=== PATIENT | male | born 1940 | race Caucasian/White ===

== ENCOUNTER 2020-11-20 16:00 | Observation (INO) | payer MEDICARE, SELFPAY ==
[2020-11-20] VITALS (49 sets, daily range): BP systolic 114–179; BP diastolic 59–102; PULSE 80–124; RESP 13–24; TEMP 36.1; O2SAT 91–96
--- NOTE | ~2020-11-20 | CT_ITS ---
EXAMINATION: CT brain wo con DATE: 11/20/2020 18:03 INDICATION: Syncope and dizziness TECHNIQUE: Computed tomography (CT) of the head was performed without intravenous contrast. Sagittal and coronal reconstructions were performed. The mA was adjusted according to patient size. Iterative reconstruction technique was employed. The dose-length product was 681.00 mGy-cm. COMPARISON: head CT dated 11/09/2015 FINDINGS: No acute intracranial hemorrhage, acute infarction or abnormal extra axial fluid collection. There is moderate scattered white matter hypoattenuation consistent with chronic small vessel ischemic diseas e. Symmetric prominence of the sulci consistent with mild to moderate age-appropriate diffuse cerebra l volume loss. Ventricles are normal and symmetric. No mass/mass effect. Changes of bilateral intraoc ular lens replacement. The orbits and mastoid air cells are normal. Mucosal thickening the bilateral ethmoid sinuses. Thickened sclerotic ayoub to the bilateral maxillary sinuses consistent with chronic sinusitis with defects along the medial ayoub of both maxillary sinuses consistent with prior antral window procedures. Intracranial calcified cerebral atherosclerosis is noted. IMPRESSION: 1. No acute intracranial process. 2. Age-related changes including mild to moderate diffuse volume loss and moderate scattered white ma tter hypoattenuation consistent with chronic small vessel ischemic disease. Reviewed, dictated and finalized at location A. IMPRESSION: 1. No acute intracranial process. 2. Age-related changes including mild to moderate diffuse volume loss and moder ate scattered white matter hypoattenuation consistent with chronic small vessel ischemic disease.
--- NOTE | ~2020-11-20 | US_ITS ---
EXAMINATION: US carotid duplex BI DATE: 11/21/2020 09:39 INDICATION: Syncope TECHNIQUE: Grayscale, color Doppler, and pulsed Doppler images of the cervical carotid arteries were obtained. The degree of vessel stenosis is placed in one of the following categories: normal, <50%, 5 0-69%, >=70% but less than near-occlusion, near-occlusion, or total occlusion. Note that percent sten osis relative to normal distal artery lumen diameter is indirectly measured from velocity measurement s as described by Ariel, et al. Radiology 2003; 229:340-346. COMPARISON: None. FINDINGS: RIGHT: The right common carotid artery (CCA) peak systolic velocity (PSV) is 87 cm/s. The right internal car otid artery (ICA) PSV is 105 cm/s. The right ICA end-diastolic velocity (EDV) is 34 cm/s. The right I CA/CCA PSV ratio is 1.2. Grayscale and color Doppler images yield an estimate of <50% diameter reduct ion from plaque in the ICA. The external carotid artery (ECA) PSV is 120 cm/s. There is antegrade nilson w in the right vertebral artery. LEFT: The left CCA PSV is 102 cm/s. The left ICA PSV is 118 cm/s. The left ICA EDV is 31 cm/s. The left ICA /CCA PSV ratio is 1.2. Grayscale and color Doppler images yield an estimate of <50% diameter reductio n from plaque in the ICA. The ECA PSV is 151 cm/s. There is antegrade flow in the left vertebral praful ry. IMPRESSION: 1. <50% stenosis in the right internal carotid artery. 2. <50% stenosis in the left internal carotid artery. Reviewed, dictated and finalized at location A.
--- NOTE | ~2020-11-20 | CT_ITS ---
EXAMINATION: CTA chest PE abdomen pel DATE: 11/20/2020 18:08 INDICATION: Syncope. Positive d-dimer. Anemia. TECHNIQUE: Computed tomography (CT) pulmonary angiogram of the chest was performed with 100 mL Omnipa que-350 intravenous contrast. Additional 3D reconstructions utilizing coronal maximum intensity proje ction (MIP) were performed. CT of the abdomen and pelvis was performed with intravenous contrast util izing the same contrast bolus following a short delay. Automated exposure control and iterative recon struction technique were employed. The dose-length product was 809.03 mGy-cm. COMPARISON: Chest CT dated 04/23/2019 FINDINGS: Chest: Excellent contrast opacification of the pulmonary arteries. There is mild streak artifact from dense contrast in the superior vena cava and right atrium. Mild scattered respiratory motion artifact which does not significantly limit evaluation. No pulmonary embolism. Severe emphysema. Chronic mild eleva tion of the left hemidiaphragm. Discoid atelectasis in the bilateral lower lobes, right upper lobe an d lingula. A few bilateral small calcite pulmonary nodules along with calcified bilateral hilar and m ediastinal lymph nodes consistent with old granulomatous disease. Heart size is normal. Atherosclerot ic coronary artery calcifications. Aortic valve calcifications. No pericardial effusion. Thoracic aor ta is normal in caliber with no dissection. No pathologically enlarged thoracic lymphadenopathy. Thor acic kyphosis with chronic T7 compression fracture with 40% anterior vertebral body height loss. Abdomen/pelvis: Chronic 2.2 cm cyst in the right hepatic lobe. A few hepatic and splenic calcific lesions consistent with old granulomatous disease. Gallbladder, pancreas and bilateral adrenal glands are normal. Bilate ral low-attenuation renal cysts the largest measuring 3.0 cm at the lower pole of the left kidney. 1. 6 cm hyperdense exophytic cyst at the interpolar region of the right kidney which is without signific ant interval change since 07/08/2018 when on pre and postcontrast imaging there was no discernible en hancement. There is marked colonic diverticulosis with a sigmoid and descending colon predominance. T here is no adjacent inflammatory change to suggest diverticulitis. No bowel obstruction. The appendix is not visualized. No pericecal inflammatory change to suggest acute appendicitis. Bladder is normal . Prostatomegaly. Postoperative change of bilateral inguinal hernia repairs. No free intraperitoneal gas or fluid. There is calcified atherosclerosis of the aorta and many of the other arteries. No path ologically enlarged abdominal or pelvic lymphadenopathy. Mild to moderate lumbar spondylosis. Moderat e bilateral hip osteoarthritis. IMPRESSION: 1. No pulmonary embolism or other acute cardiopulmonary disease. 2. Severe emphysema. 3. No acute intra-abdominal/pelvic process. 4. Marked diverticulosis. 5. Prostatomegaly. Reviewed, dictated and finalized at location A.
--- NOTE | 2020-11-20 16:10 | ECG_ITS ---
Measurements Intervals [place] Rate: 84 P: 22 AL: 208 QRS: -50 QRSD: 110 T: 38 QT: 378 QTc: 449 Interpretive Statements SINUS RHYTHM WITH FIRST DEGREE AV BLOCK LEFT AXIS DEVIATION INTRAVENTRICULAR CONDUCTION DELAY CANNOT RULE OUT SEPTAL INFARCT, AGE INDETERMINATE ABNORMAL ECG Electronically Signed On 11-20-2020 17:16:30 CDT by Pancho Louis D.O.
--- NOTE | 2020-11-20 16:36 | ED.GENADULT ---
HPI - General Adult General Chief complaint: Dizziness Stated complaint: near syncope Source: patient and family Mode of arrival: EMS Limitations: no limitations History of Present Illness HPI narrative: Patient brought in by EMS after he had a episode of dizziness with near syncope that occurred just [employer]. He was working outside with his son this afternoon and upon entering his home he felt dizzy. While seated in a chair, he informed his son that he needed to use the restroom. His son assisted him down the hallway. His son indicates that his legs gave out and patient began to fall to the ground. His son caught him prior to the time that he hit the ground. No loss of consciousness. EMS was contacted and brought patient to the hospital for further evaluation. Patient states at the present time he feels great and has no complaints. At the time of the event he had no chest pain. 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 He has a remote hx of CVA and has a cardiac stent placed in 2000. He is currently on medication for hypertension and hyperlipidemia. He does not smoke. No personal or family hx of VTE. No recent surgeries. Of note, he was diagnosed with vertigo in the past, for which he was given meclizine. He states symptoms today did not feel consistent with those experienced with vertigo. He states at the time of the event it did not feel like the room was spinning. Related Data Home Medications Medication Instructions Recorded Confirmed atorvastatin 20 mg tablet 20 mg PO DAILY 09/17/20 09/17/20 cholecalciferol (vitamin D3) 25 25 mcg PO DAILY 09/17/20 09/17/20 mcg (1,000 unit) capsule omega 2-dat-hku-fish oil 1,000 mg 1 cap PO DAILY 09/17/20 09/17/20 (120 mg-180 mg) capsule vitamin E 200 unit capsule 200 unit PO DAILY 09/17/20 09/17/20 Allergies Allergy/AdvReac Type Severity Reaction Status Date / Time No Known Allergies Allergy Unknown Verified 11/20/20 16:07 Review of Systems Review of Systems: Narrative: CONSTITUTIONAL: Denies fever, chills, or sweats. EYES: Denies visual changes, redness, or discharge. ENT: Denies rhinorrhea, congestion, sore throat, or otalgia. CARDIOVASCULAR: Denies chest pain, palpitations, or edema. RESPIRATORY: Reports chronic shortness of breath, not worse as of late. Denies cough GASTROINTESTINAL: Denies abdominal pain, nausea, vomiting, or diarrhea. GENITOURINARY: Denies dysuria or hematuria. SKIN: Denies rash or itching. MUSCULOSKELETAL: Denies back pain, joint pain, or myalgia. NEUROLOGIC: Reports dizziness earlier, now resolved. Denies headache, numbness, or weakness. PSYCHIATRIC: Denies anxiety or depression. [facility] Past Medical History Medical History (Updated 11/20/20 @ 21:07 by ZACHERY Hopkins, ) Hyperlipidemia Hypertension Surgical History Surgical History History of hernia repair Family History Family History Mother Family history of heart disease in male family member before age 55 Social History Social History Smoking status: Never smoker Second hand tobacco smoke exposure: No Smoking end date: 07/23/84 Alcohol intake: never Substance use: never Living arrangements: with family Gender identity (if verbalized by the patient): Male Sexual Orientation (if Verbalized by the Patient): Straight or Heterosexual Spiritual care concerns: No Exam Narrative: Exam Narrative: GENERAL: Well-appearing, well-nourished, and in no acute distress. HEAD: Normocephalic, atraumatic. EYES: PERRLA and EOMI. ENT: Nares clear, no rhinorrhea or epistaxis. Mucous membranes moist. Oropharynx without tonsillar hypertrophy exudate or other lesions. Bilateral TMs pearly matos nonbulging NECK: Supple. No adenopathy or masses. No carot
[2020-11-20] MEDS: SODIUM CHLORIDE 0.9% IV 1,000 ML 150 ML IV CONT (16:43)
[2020-11-20 17:12] LABS: Basophils Absolute Auto 0.1 K/mm3 (0.0-0.1); Basophils Percent Auto 1.2 % (0.2-1.2); Eosinophils Absolute Auto 0.2 K/mm3 (0-0.3); Hematocrit 27.8 % (42.0-52.0); Hemoglobin 7.6 g/dL (14.0-18.0); Immature Granulocyte Absolute 0.05 K/mm3 (0.00-0.031); Immature Granulocyte Percent A 0.5 % (0-0.5); Lymphocytes Absolute Auto 1.03 K/mm3 (0.9-3.2); Mean Corpuscular HGB Conc 27.3 g/dl (32-36); Mean Corpuscular Hemoglobin 18.9 pg (26-34); Mean Platelet Volume 10.1 fl (7.4-10.4); Monocytes Absolute Auto 0.9 K/mm3 (0.1-0.6); Monocytes Percent Auto 8.2 % (2.6-8.5); Neutrophils Absolute Auto 8.1 K/mm3 (1.3-6.7); Neutrophils Percent Auto 78.1 % (45.5-73.1); Platelet Count Result 274 k/mm3 (150-375); Red Blood Count 4.03 M/mm3 (4.6-6.20); Red Cell Distribution Width 16.1 % (11.5-14.5); White Blood Count 10.3 K/mm3 (4.5-10.0)
[2020-11-20 17:18] LABS: Creatine Kinase 67 U/L (55-170)
[2020-11-20 17:22] LABS: Prothrombin Time 13.3 Seconds (11.1-14.7)
[2020-11-20 17:23] LABS: Partial Thromboplastin Time 25.2 SECONDS (22.3-36.8)
[2020-11-20 17:25] LABS: Alanine Aminotransferase 12 U/L (4-50); Albumin Level 3.9 g/dL (3.5-5.1); Alkaline Phosphatase 75 U/L (38-126); Anion Gap 4 mmol/L (8-16); Aspartate Amino Transferase 23 U/L (17-59); Bilirubin,Total 0.3 mg/dL (0.2-1.3); Blood Urea Nitrogen 18 mg/dL (9-20); Calcium 9.2 mg/dL (8.4-10.2); Carbon Dioxide 25 mmol/L (22-30); Chloride 106 mmol/L (98-107); D Dimer 0.69 ug/mL (<0.48); Estimated CRCL calculation 53 ml/min; Estimated Glomerular Filt Rate > 60; Glucose 86 mg/dL (75-110); Sodium 135 mmol/L (137-145)
[2020-11-20 17:29] LABS: Crenated RBC 1+ (NORMAL); Hypochromasia 2+ (NORMAL); Ovalocytes 1+ (NORMAL); Platelet Estimate Adequate (Adequate)
[2020-11-20 17:35] LABS: NT Pro B Type Natriuretic Pept 82 pg/mL (5-100); Troponin I 0.041 ng/mL (0.000-0.034)
[2020-11-20 17:36] LABS: Potassium 4.1 mmol/L (3.4-5.0)
[2020-11-20 17:55] LABS: Add Urine Microscopic? YES; Appearance Urine Cloudy (Clear); Bilirubin Urine Negative (Negative); Blood Urine Negative (Negative); Color Urine Yellow (Yellow); Glucose Urine UA Negative (Negative); Ketones Urine Negative (Negative); Leukocyte Esterase Ur Negative LEU/UL (Negative); Nitrate Urine Negative (Negative); Protein Urine 1+ mg/dL (Negative); RBC Urine 0-2 /hpf (0-2); Specific Grav Ur 1.016 (1.001-1.035); Squamous Epithelial Cell Urine Rare /hpf (Few); Urobilinogen Urine Negative mg/dL (<2.0)
--- NOTE | 2020-11-20 18:20 | PC.NURSE ---
Pt in CT.
[2020-11-20 20:42] LABS: Troponin I 0.045 ng/mL (0.000-0.034)
[2020-11-20 21:21] LABS: Iron 17 ug/dL (49-181)
[2020-11-20 21:31] LABS: Percent Iron Saturation 4 % (20-50)
[2020-11-20] MEDS: ENOXAPARIN 80 MG/0.8 ML SYRINGE SUB-Q (21:53)
[2020-11-20] MEDS: ASPIRIN 81 MG CHEWABLE TABLET 324 MG PO (21:53)
[2020-11-20 21:58] LABS: Ferritin 4.24 ng/mL (11.1-264)
[2020-11-20 22:36] LABS: Folic Acid 14.3 ng/mL (2.76->20)
[2020-11-21] VITALS (14 sets, daily range): BP systolic 115–154; BP diastolic 58–76; PULSE 69–94; RESP 16–21; TEMP 36.3–37.1; O2SAT 92–97; BMI 25.7
--- NOTE | 2020-11-21 00:20 | PC.NURSE ---
This patient, Pranay Casanova, was admitted to [facility] Surg Room 323-01. Patient/family oriented to hospital policies and general routines including ID bracelet, bed and alarms, visiting hours, pain management, procedures, bathroom and other care routines, personal items, smoking policy, room service/diet, and visiting hours. Information on how to activate the Rapid Response Team has been discussed. Patient/Family are encouraged to report perceived risks to care and to ask questions if they do not understand what they are told or what they should do.
[2020-11-21] MEDS: IRON SUCROSE COMPLEX 500 MG in SODIUM CHLORIDE 0.9% IV 250 ML 78.57 MG IVPB (01:00)
[2020-11-21 05:52] LABS: Hematocrit 26.5 % (42.0-52.0); Hemoglobin 7.6 g/dL (14.0-18.0); Mean Corpuscular HGB Conc 28.7 g/dl (32-36); Mean Corpuscular Hemoglobin 19.3 pg (26-34); Mean Corpuscular Volume 67.3 fl (80-100); Mean Platelet Volume 10.2 fl (7.4-10.4); Platelet Count Result 276 k/mm3 (150-375); Red Blood Count 3.94 M/mm3 (4.6-6.20); White Blood Count 7.2 K/mm3 (4.5-10.0)
[2020-11-21 06:25] LABS: Troponin I 0.053 ng/mL (0.000-0.034)
--- NOTE | 2020-11-21 06:45 | PM.IMHP ---
H&P: HPI History of Present Illness Date/Time: 11/21/20 02:30 Chief Complaint: Lightheaded, may have passed out Narrative: 80-year-old male with past medical history of coronary artery disease with distant history of cardiac stent, essential hypertension, grade 2 diastolic dysfunction, and prior hospitalizations for near syncopal events and rectal bleeding in the distant past who presented to the ER via EMS due to near syncopal episode. The patient reported that he had been outside watching his son hang some wiring. When he walked inside he noticed that he felt lightheaded and off balance. He was sitting in a chair in the living room it was decided he needed to get up and go to the bathroom to urinate. His son helped him to business center manager he ambulated down the jin at which time out and he began to fall to the ground. His son eased him to the ground. The patient is unsure if he truly lost consciousness but according to the ER records the son did not think the patient completely lost consciousness. The patient still felt lightheaded for another 10 or 15 minutes but by the time he arrived to the ER his symptoms had completely resolved. He denied having any chest pain, palpitations, or cough. He does have chronic shortness of breath due to asbestosis but is not been worse recently. He does have a history of vertigo but denies a sensation of the room spinning. The symptoms were different than his usual vertigo. He denies any headache or visual changes. He has not had any cough, congestion, fevers or chills. He denies any diarrhea, hematochezia, melena or dysuria. He has not noticed any hematuria. Review of Systems Review of Systems: Narrative: 12 systems were reviewed with pertinent positives and negatives per HPI. Except as documented in the HPI, all other systems were reviewed and are negative. [facility] Past Medical History Medical History (Updated 11/21/20 @ 06:56 by Sandy Grider DO) Asbestosis Atherosclerotic heart disease of [place] coronary artery without angina pectoris Diastolic heart failure Echocardiogram April 2016: Normal ejection fraction of 65%, grade 2 diastolic dysfunction Hyperlipidemia Hypertension Kidney stones Surgical History Surgical History (Updated 11/21/20 @ 06:56 by Sandy Grider DO) History of heart artery stent (~2010) History of hernia repair Right inguinal hernia repair x2 with most recent repair July 2015 History of partial thyroidectomy (~01/2011) Family History Family History Mother Family history of heart disease in male family member before age 55 Social History Social History Smoking packs per day: 1 Smoking cigarettes per day: 20.0 Years smoked: 20 Smoking pack-years: 20.00 Smoking status: Former smoker Tobacco type: cigarettes Second hand tobacco smoke exposure: No Smoking end date: 07/23/84 Alcohol intake: never Substance use: never Living arrangements: with family Gender identity (if verbalized by the patient): Male Sexual Orientation (if Verbalized by the Patient): Straight or Heterosexual Spiritual care concerns: No Meds Home Medications and Allergies Home Medications Medication Instructions Recorded Confirmed Type atorvastatin 20 mg tablet 20 mg PO DAILY 09/17/20 11/21/20 History cholecalciferol (vitamin D3) 25 25 mcg PO DAILY 09/17/20 11/21/20 History mcg (1,000 unit) capsule omega 9-ehv-nue-fish oil 1,000 mg 1 cap PO DAILY 09/17/20 11/21/20 History (120 mg-180 mg) capsule vitamin E 200 unit capsule 200 unit PO DAILY 09/17/20 11/21/20 History amlodipine 5 mg PO DAILY 11/21/20 11/21/20 History aspirin 81 mg PO DAILY 11/21/20 11/21/20 History lisinopril 10 mg PO DAILY 11/21/20 11/21/20 History naproxen sodium [Aleve] 220 mg PO Q12H PRN 11/21/20 11/21/20 History Allergies Allergy/AdvReac Type Severity [place]
[2020-11-21] MEDS: ATORVASTATIN 20 MG TABLET PO (08:42)
[2020-11-21] MEDS: OMEGA 3 POLYUNSAT FATTY ACIDS 1 GM CAP PO (08:42)
[2020-11-21] MEDS: CHOLECALCIFEROL 1,000 UNITS TABLET 1000 UNITS PO (08:42)
[2020-11-21] MEDS: amLODIPine BESYLATE 5 MG TABLET PO (08:42)
[2020-11-21] MEDS: lisinopriL 10 MG TABLET PO (08:42)
[2020-11-21] MEDS: FERROUS SULFATE 324 MG TABLET PO ×2 (08:42→17:13)
[2020-11-21] MEDS: ASPIRIN 81 MG ENTERIC TABLET PO (08:42)
[2020-11-21] MEDS: VITAMIN E 100 UNIT CAPSULE 200 UNIT PO (08:43)
[2020-11-21 10:37] LABS: Troponin I 0.048 ng/mL (0.000-0.034)
--- NOTE | 2020-11-21 10:45 | PM.IMPN ---
Progress Note: A&P Assessment and Plan (1) Near syncope: Code(s): R55 - Syncope and collapse Status: Acute Assessment and Plan: The patient has iron deficiency anemia. His stool occult blood in the ER was negative but he does have a history of admissions in 2018 due to bright red blood per rectum. The most recent comparison level UA have available is from 2018 at which time his hemoglobin was 12. The patient claims to be eating iron rich foods. No evidence of active GI blood loss. Will give the patient a dose of Venofer. Sulfate has been ordered with b.i.d. dosing. 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 Will repeat CBC in a.m.. Patient is not having any symptoms of gastritis or GERD. He does take naproxen on a somewhat frequent basis and could have some microscopic GI losses due to this. Will stop the patient's naproxen. Given his near syncopal episode he will be evaluated on telemetry. Will check orthostatic vital signs in a.m. The patient did have mildly elevated troponins but his troponin profile is flat. He has no evidence of acute myocardial ischemia. 11/21/20 10:45 patient is 80-year-old male history of hypertension coronary artery disease with stent and distant past, diastolic dysfunction, patient was brought to the emergency department after patient had a syncopal episode patient states there was no prodrome symptoms chest pain shortness of breath palpitation, patient does have a history of iron deficiency anemia and his hemoglobin is lower than 2018, will do stool Hemoccult, will do iron profile and check vitamin B12 and folate and further recommendation to follow, patient states is feeling better now denies any chest pain shortness of breath or disease, so far the workup is benign, further evaluate I have ordered cardiac echo and carotid ultrasound as well as physical therapy to evaluate the patient return home safe. (2) Elevated troponin: Code(s): R77.8 - Other specified abnormalities of plasma proteins Status: Acute Assessment and Plan: Most likely demand ischemia unlikely acute coronary syndrome (3) Iron deficiency anemia: Qualifiers: Iron deficiency anemia type: unspecified iron deficiency Qualified Code(s): D50.9 - Iron deficiency anemia, unspecified Code(s): D50.9 - Iron deficiency anemia, unspecified Status: Acute Assessment and Plan: Will do iron profile and check for vitamin B12 and folic and check for stool Hemoccult Additional Plan Patient has been admitted as observation status. Subjective Date/time seen: The patient has iron deficiency anemia. His stool occult blood in the ER was negative but he does have a history of admissions in 2018 due to bright red blood per rectum. The most recent comparison level UA have available is from 2018 at which time his hemoglobin was 12. The patient claims to be eating iron rich foods. No evidence of active GI blood loss. Will give the patient a dose of Venofer. Sulfate has been ordered with b.i.d. dosing. 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 Will repeat CBC in a.m.. Patient is not having any symptoms of gastritis or GERD. He does take naproxen on a somewhat frequent basis and could have some microscopic GI losses due to this. Will stop the patient's naproxen. Given his near syncopal episode he will be evaluated on telemetry. Will check orthostatic vital signs in a.m. The patient did have mildly elevated troponins but his troponin profile is flat. He has no evidence of acute myocardial ischemia. 11/21/20 10:45 patient is 80-year-old male history of hypertension coronary artery disease with stent and distant past, diastolic dysfunction, patient was brought to the emergency department after patient had a syncopal episode patient state
[2020-11-21] MEDS: CYANOCOBALAMIN INJ 1,000 MCG/ML VIAL 1000 MCG IM (13:40)
[2020-11-22] VITALS (8 sets, daily range): BP systolic 115–132; BP diastolic 69–75; PULSE 65–80; RESP 16–18; TEMP 36.2–36.8; O2SAT 90–96
--- NOTE | 2020-11-22 | ECHO_ITS ---
Patient Info Name: Pranay Casanova Age: 80 years : 1940 Gender: Male Ht: 70 in Wt: 179 lbs BSA: 2.01 m2 HR: 78 bpm BP: 115 / 75 mmHg Heart Rhythm: Sinus Rhythm Technical Quality: Good Exam Date: 11/22/2020 9:34 AM Exam Location: [facility] Pulmonary Exam Room: [facility] Patient Status: Inpatient Admit Date: 11/20/2020 Staff Ordering Physician: Giulia Horne MD Traffic Control Specialist: Kanchan Sargent RDCS Attending Provider: Sandy Grider DO Exam Type: CA echo doppler color flow Study Info Indications - syncope Complete two-dimensional, color flow and Doppler transthoracic echocardiogram is performed. Summary 1. Complete two-dimensional, color flow and Doppler transthoracic echocardiogram is performed. 2. Left ventricular chamber dimension is normal. 3. Left ventricular systolic function is normal, estimated at 65-70%. 4. The left ventricular diastolic function is grade I diastolic dysfunction. 5. Left atrial chamber dimension is moderately enlarged. 6. There is mild to moderate mitral valve regurgitation. 7. There is trace aortic valve regurgitation. Left Ventricle Left ventricular chamber dimension is normal. Left ventricular systolic function is normal, estimated at 65-70%. The left ventricular diastolic function is grade I diastolic dysfunction. Right Ventricle Right ventricular chamber dimension is normal. Left Atria Left atrial chamber dimension is moderately enlarged. Right Atria Right atrial chamber dimension is normal. Aortic Valve The aortic valve is trileaflet. There is mild aortic valve sclerosis. There is trace aortic valve regurgitation. Pulmonic Valve The pulmonic valve is normal. Mitral Valve The mitral valve has normal leaflets. There is mild to moderate mitral valve regurgitation. Tricuspid Valve The tricuspid valve leaflets are normal. Pericardium/Pleural The pericardium appears normal. Aorta The aortic root size at the sinus of Valsalva is normal. Left Ventricular Outflow Tract Name Value Normal LVOT 2D LVOT Diameter 2.1 cm LVOT Doppler LVOT Peak Gradient 4 mmHg LVOT Mean Gradient 2 mmHg LVOT VTI 18 cm LVOT VTI/AV VTI Ratio 0.8 LVOT Stroke Volume 63 ml LVOT CO 14.1 l/min LVOT CI 7.0 l/min/m2 Pulmonic Valve Name Value Normal PV Doppler PV Peak Gradient 3 mmHg Mitral Valve Name Value Normal MV Doppler MV Decel Nance
[2020-11-22 06:33] LABS: Hematocrit 27.2 % (42.0-52.0); Hemoglobin 7.6 g/dL (14.0-18.0); Mean Corpuscular HGB Conc 27.9 g/dl (32-36); Mean Corpuscular Volume 68.2 fl (80-100); Mean Platelet Volume 10.3 fl (7.4-10.4); Platelet Count Result 273 k/mm3 (150-375); Red Blood Count 3.99 M/mm3 (4.6-6.20); Red Cell Distribution Width 16.3 % (11.5-14.5)
[2020-11-22 06:45] LABS: Anion Gap 0 mmol/L (8-16); Blood Urea Nitrogen 14 mg/dL (9-20); Calcium 8.9 mg/dL (8.4-10.2); Carbon Dioxide 28 mmol/L (22-30); Chloride 110 mmol/L (98-107); Estimated CRCL calculation 58 ml/min; Estimated Glomerular Filt Rate > 60; Glucose 80 mg/dL (75-110); Potassium 3.7 mmol/L (3.4-5.0); Sodium 138 mmol/L (137-145)
--- NOTE | 2020-11-22 06:48 | PC.NURSE ---
Patient heart rate was in the 160's. No complaints of chest pain or fluttering. Heart rate was in the 160's for a minute and came back down into the 70's. Vital signs are stable, see MAR.
[2020-11-22] MEDS: FERROUS SULFATE 324 MG TABLET PO (08:18)
[2020-11-22] MEDS: ATORVASTATIN 20 MG TABLET PO (08:19)
[2020-11-22] MEDS: lisinopriL 10 MG TABLET PO (08:19)
[2020-11-22] MEDS: ASPIRIN 81 MG ENTERIC TABLET PO (08:19)
[2020-11-22] MEDS: amLODIPine BESYLATE 5 MG TABLET PO (08:19)
[2020-11-22] MEDS: CHOLECALCIFEROL 1,000 UNITS TABLET 1000 UNITS PO (08:19)
[2020-11-22] MEDS: VITAMIN E 100 UNIT CAPSULE 200 UNIT PO (08:19)
[2020-11-22] MEDS: OMEGA 3 POLYUNSAT FATTY ACIDS 1 GM CAP PO (08:19)
[2020-11-22 15:13] LABS: IFOB Positive Control Positive; Immunochemical Fecal Occult Bl Negative (N)
--- NOTE | 2020-11-22 15:31 | PM.DS ---
DS: Admitting Diagnosis Admitting Diagnosis Admitting Diagnosis: Chief Complaint: Lightheaded, may have passed out DS: Discharge Diagnosis Discharge Diagnosis (1) Near syncope: Code(s): R55 - Syncope and collapse Status: Acute Assessment and Plan: The patient has iron deficiency anemia. His stool occult blood in the ER was negative but he does have a history of admissions in 2018 due to bright red blood per rectum. The most recent comparison level UA have available is from 2018 at which time his hemoglobin was 12. The patient claims to be eating iron rich foods. No evidence of active GI blood loss. Will give the patient a dose of Venofer. Sulfate has been ordered with b.i.d. dosing. 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 Will repeat CBC in a.m.. Patient is not having any symptoms of gastritis or GERD. He does take naproxen on a somewhat frequent basis and could have some microscopic GI losses due to this. Will stop the patient's naproxen. Given his near syncopal episode he will be evaluated on telemetry. Will check orthostatic vital signs in a.m. The patient did have mildly elevated troponins but his troponin profile is flat. He has no evidence of acute myocardial ischemia. 11/21/20 10:45 patient is 80-year-old male history of hypertension coronary artery disease with stent and distant past, diastolic dysfunction, patient was brought to the emergency department after patient had a syncopal episode patient states there was no prodrome symptoms chest pain shortness of breath palpitation, patient does have a history of iron deficiency anemia and his hemoglobin is lower than 2018, will do stool Hemoccult, will do iron profile and check vitamin B12 and folate and further recommendation to follow, patient states is feeling better now denies any chest pain shortness of breath or disease, so far the workup is benign, further evaluate I have ordered cardiac echo and carotid ultrasound as well as physical therapy to evaluate the patient return home safe. (2) Elevated troponin: Code(s): R77.8 - Other specified abnormalities of plasma proteins Status: Acute Assessment and Plan: Most likely demand ischemia unlikely acute coronary syndrome (3) Iron deficiency anemia: Qualifiers: Iron deficiency anemia type: unspecified iron deficiency Qualified Code(s): D50.9 - Iron deficiency anemia, unspecified Code(s): D50.9 - Iron deficiency anemia, unspecified Status: Acute Assessment and Plan: Will do iron profile and check for vitamin B12 and folic and check for stool Hemoccult DS: Summary Hospital Course Reason for hospitalization: Chief Complaint: Lightheaded, may have passed out Narrative: 80-year-old male with past medical history of coronary artery disease with distant history of cardiac stent, essential hypertension, grade 2 diastolic dysfunction, and prior hospitalizations for near syncopal events and rectal bleeding in the distant past who presented to the ER via EMS due to near syncopal episode. The patient reported that he had been outside watching his son hang some wiring. When he walked inside he noticed that he felt lightheaded and off balance. He was sitting in a chair in the living room it was decided he needed to get up and go to the bathroom to urinate. His son helped him to insurance executive he ambulated down the jin at which time out and he began to fall to the ground. His son eased him to the ground. The patient is unsure if he truly lost consciousness but according to the ER records the son did not think the patient completely lost consciousness. The patient still felt lightheaded for another 10 or 15 minutes but by the time he arrived to the ER his symptoms had completely resolved. He denied having any chest pain, palpitations, or cough. 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
== END 2020-11-22 16:20 | disposition home or self-care (01) ==
LOC: ANHED 21:09 → ANH3MEDSUR 11-21 00:07
PROVIDERS: Admitting Provider Internal Medicine; Emergency Provider Nurse Practitioner; PCP Internal Medicine; Visit Provider Family Medicine
DX: R55 Syncope and collapse (principal); D50.9 Iron deficiency anemia, unspecified; R06.02 Shortness of breath; I10 Essential (primary) hypertension; I25.10 Atherosclerotic heart disease of native coronary artery without angina pectoris; Z95.5 Presence of coronary angioplasty implant and graft; R77.8 Other specified abnormalities of plasma proteins; Z87.891 Personal history of nicotine dependence
CPT/HCPCS: 36415; 70450; 71275; 74177; 80048; 80053; 81001; 82274; 82550; 82607; 82728; 82746; 83540; 83550; 83735; 83880; 84484; 85025; 85027; 85380; 85610; 85730; 93005; 93306; 93880; 96361; 96365; 96366; 96372; 97161; 97165; 99285; A9270; G0378; J1650; J1756; J3420; J7030; J7050; Q9967

== ENCOUNTER 2020-12-08 12:34 | Outpatient (CLI) | payer MEDICARE, SELFPAY ==
[2020-12-08 13:00] VITALS: PULSE 72; O2SAT 91
[2020-12-08 13:05] VITALS: PULSE 103; O2SAT 86
[2020-12-08 13:15] VITALS: PULSE 88; O2SAT 91
--- NOTE | 2020-12-08 13:23 | HOMEO2EVAL ---
Evaluation was performed at [facility] Home Oxygen Evaluation RC: Home Oxygen (O2) Evaluation Start: 12/08/20 13:16 Freq: ONCE Status: Active Protocol: RPE Activity Type Activity Date Activity User E-Sign Co-Sign Detail Recorded Client Recorded Date Recorded By Document 12/08/20 13:05 KMV [id number] 12/08/20 13:19 KMV Document 12/08/20 13:15 KMV [id number] 12/08/20 13:21 KMV 12/08/20 12/08/20 13:05 13:15 Home O2 Evaluation Test Phase Exercise Exercise Oxygen Delivery Room Air Nasal Cannula Oxygen Flow Rate (L/min) 2 Pulse Oximetry (90-100 %) 86 L 91 Pulse Rate (60-100 beats/min) 103 H 88 Home Oxygen Evaluation Comments Pt need home O2 2 liters with activity.
== END 2020-12-08 12:35 | disposition home or self-care (01) ==
PROVIDERS: PCP Internal Medicine; Visit Provider Internal Medicine
DX: J43.9 Emphysema, unspecified (principal)
CPT/HCPCS: 94618

== ENCOUNTER 2022-03-13 15:01 | Observation (INO) | payer MEDICARE, SELFPAY ==
[2022-03-13] VITALS (19 sets, daily range): BP systolic 108–143; BP diastolic 52–83; PULSE 59–98; RESP 16–21; TEMP 36.2–36.9; O2SAT 97–100; BMI 24.5
--- NOTE | 2022-03-13 15:07 | ECG_ITS ---
Measurements Intervals [place] Rate: 83 P: 28 AK: 190 QRS: -48 QRSD: 104 T: 32 QT: 371 QTc: 437 Interpretive Statements SINUS RHYTHM WITH OCCASIONAL SUPRAVENTRICULAR PREMATURE COMPLEXES LEFT ANTERIOR FASCICULAR BLOCK ANTEROSEPTAL MYOCARDIAL INFARCTION, OF INDETERMINATE AGE ABNORMAL ECG COMPARED TO ECG 11/20/2020 16:17:02 LEFT ANTERIOR FASCICULAR BLOCK NOW PRESENT Electronically Signed On 03-13-2022 16:39:15 CDT by Trenton Higgins M.D.
[2022-03-13 15:39] LABS: Basophils Absolute Auto 0.1 K/mm3 (0.0-0.1); Basophils Percent Auto 1.2 % (0.2-1.2); Eosinophils Absolute Auto 0.2 K/mm3 (0-0.3); Eosinophils Percent Auto 1.9 % (0-4.4); Hematocrit 26.5 % (42.0-52.0); Immature Granulocyte Absolute 0.03 K/mm3 (0.00-0.031); Immature Granulocyte Percent A 0.3 % (0-0.5); Immature Platelet Fraction Pct 3.8 % (0.9-11.2); Lymphocytes Percent Auto 12.1 % (18.3-44.2); Mean Corpuscular HGB Conc 25.7 g/dl (32-36); Mean Corpuscular Hemoglobin 16.2 pg (26-34); Mean Corpuscular Volume 62.9 fl (80-100); Monocytes Absolute Auto 0.9 K/mm3 (0.1-0.6); Monocytes Percent Auto 10.1 % (2.6-8.5); Neutrophils Absolute Auto 6.8 K/mm3 (1.3-6.7); Neutrophils Percent Auto 74.4 % (45.5-73.1); Platelet Count Result 334 k/mm3 (150-375); Red Blood Count 4.21 M/mm3 (4.6-6.20); Red Cell Distribution Width 19.7 % (11.5-14.5); White Blood Count 9.1 K/mm3 (4.5-10.0)
[2022-03-13 15:53] LABS: Alanine Aminotransferase 13 U/L (6-50); Alkaline Phosphatase 65 U/L (38-126); Anion Gap 12 mmol/L (8-16); Aspartate Amino Transferase 23 U/L (17-59); Bilirubin,Total 0.3 mg/dL (0.2-1.3); Blood Urea Nitrogen 18 mg/dL (9-20); Calcium 9.7 mg/dL (8.4-10.2); Carbon Dioxide 23 mmol/L (22-30); Chloride 99 mmol/L (98-107); Estimated CRCL calculation 44 ml/min; Estimated Glomerular Filt Rate 58; Glucose 130 mg/dL (65-110); Potassium 4.5 mmol/L (3.4-5.0); Sodium 134 mmol/L (137-145)
[2022-03-13 16:12] LABS: Hemoglobin 6.8 g/dL (14.0-18.0)
[2022-03-13 16:13] LABS: Hypochromasia 1+ (NORMAL); Platelet Estimate Adequate (Adequate)
[2022-03-13 16:14] LABS: Anisocytosis 1+ (NORMAL); Ovalocytes 1+ (NORMAL)
[2022-03-13 16:50] LABS: INR 1.1; Prothrombin Time 13.9 Seconds (11.1-14.7)
[2022-03-13 16:51] LABS: Partial Thromboplastin Time 25.3 SECONDS (22.3-36.8)
--- NOTE | 2022-03-13 16:52 | ED.DIZZY ---
HPI - Dizziness General Chief Complaint: Dizziness Stated Complaint: dizzy Time Seen by Provider: 03/13/22 16:23 Source: RN notes reviewed History of Present Illness HPI Narrative: Patient presents emergency department from home for dizziness. Patient states he began to notice the symptoms yesterday. He states that when he is getting up and walking if he walks more than 50 feet he became dizzy and lightheaded and short of breath. He states he has no dizziness when sitting down in bed he denies any fevers or chills denies any chest pain denies any abdominal pain nausea or vomiting. Related Data Home Medications Medication Instructions Recorded Confirmed cholecalciferol (vitamin D3) 25 25 mcg PO DAILY 09/17/20 10/03/21 mcg (1,000 unit) capsule omega 8-tfh-bzf-fish oil 1,000 mg 1 cap PO DAILY 09/17/20 10/03/21 (120 mg-180 mg) capsule (Fish Oil) vitamin E 200 unit capsule 200 unit PO DAILY 09/17/20 10/03/21 aspirin 81 mg tablet 81 mg PO DAILY 11/21/20 10/03/21 vitamin B complex (B 1 tablet PO DAILY 12/24/20 10/03/21 Complex-Vitamin B12 tablet) Allergies Allergy/AdvReac Type Severity Reaction Status Date / Time No Known Allergies Allergy Unknown Verified 03/13/22 16:37 Review of Systems Review of Systems: Gen.: Denies fevers or chills ENT: Denies congestion Respiratory: Reports shortness of breath with exertion CV: Denies chest pain or palpitations GI: Denies abdominal pain nausea, emesis or diarrhea Musculoskeletal: Denies back pain or muscle pain Neuro: Reports dizziness Skin: Denies rash Except as documented, all other systems reviewed and negative [facility] Past Medical History Medical History Asbestosis Atherosclerotic heart disease of [place] coronary artery without angina pectoris Diastolic heart failure Echocardiogram April 2016: Normal ejection fraction of 65%, grade 2 diastolic dysfunction Hyperlipidemia Hypertension Kidney stones Surgical History Surgical History History of heart artery stent (~2010) History of hernia repair Right inguinal hernia repair x2 with most recent repair July 2015 History of partial thyroidectomy (~01/2011) Family History Family History Mother Heart disease Father Heart disease Melanoma Social History Social History Social History: He lives in [place] with his of 63 years. They had 2 sons. 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 He is still independent in activities of daily living and ambulates without assistance. He still drives. He had a distant history of 20 pack per year smoking history but quit smoking in . Primary care physician: Dr. Iam Sabillon Code status: DNR/DNI per patient request Surrogate decision maker: Tonia () Smoking packs per day: 1 Smoking cigarettes per day: 20.0 Years smoked: 20 Smoking pack-years: 20.00 Smoking status: Former smoker Tobacco type: cigarettes Second hand tobacco smoke exposure: No Smoking end date: 07/23/84 Alcohol intake: never Substance use: never Gender identity (if verbalized by the patient): Male Sexual Orientation (if Verbalized by the Patient): Straight or Heterosexual Spiritual care concerns: No Exam Narrative: APPEARANCE: No acute distress, nontoxic, resting in bed EYES: EOMI HEENT: Normocephalic, atraumatic, OMM RESPIRATORY: No respiratory distress Clear to auscultation bilaterally with no rhonchi wheezing or rales. CARDIOVASCULAR: Regular rate and rhythm without murmurs rubs or gallops. ABDOMINAL: Soft, nontender, nondistended, no rebound or guarding Rectal: No hemorrhoids or fissures soft light brown stool that is Hemoccult positive MUSCULOSKELETAl: Moves all extremities. No clubbing, cyanosis or edema. NEURO: Awake and a
--- NOTE | 2022-03-13 16:59 | WPDGICN ---
Assessment and Plan Assessment and plan (1) GI bleed: Code(s): K92.2 - Gastrointestinal hemorrhage, unspecified Status: Acute Assessment and Plan: he has not seen gross blood in his stools. The the drop in his blood counts and low MCV however suggest chronic gastrointestinal blood loss. We will investigate that with EGD and colonoscopy. he denies recent abdominal pain. He denies use of NSAIDs except occasional ibuprofen. (2) Symptomatic anemia: Code(s): D64.9 - Anemia, unspecified Status: Acute Assessment and Plan: He has been increasingly short of breath recently. This reminds him of how he felt when he was hospitalized 1 year ago after which he received oral iron therapy and infusions. (3) Atherosclerotic heart disease of [place] coronary artery without angina pectoris: Code(s): I25.10 - Atherosclerotic heart disease of [place] coronary artery without angina pectoris Status: Acute Assessment and Plan: He has had a stent placed many years ago. He does take aspirin, 81 mg per day. (4) On home oxygen therapy: Code(s): Z99.81 - Dependence on supplemental oxygen Status: Acute Assessment and Plan: He is on 2 L of oxygen at home at night GI Consult Note Consult date/time: 03/13/22 16:59 HPI: Pranay Casanova is a 81 year old male Who comes emergency room today complaining of being short winded and tired walking even a few steps. He states that the arm he has otherwise felt pretty good. His appetite is fair he has no difficulty swallowing. He denies heartburn or abdominal pain. He has had some issues with constipation, primarily when taking iron supplements. He uses a suppository or laxative from time to time. He has not seen blood in his stools nor has he noticed black, tarry stools. His hemoglobin has been found to be low at 6.8 compared to 14 a year ago. He is not anticoagulated. He does take 1 aspirin tablet 81 mg per day. He has a history of coronary artery disease and a remote history of having had a stent placed. He also has had hernia repair partial thyroidectomy. The patient was hospitalized overnight in 2018 when he had bright red blood per rectum but his hemoglobin did not drop below 12 and he was released the next day. One year ago he was hospitalized with severe anemia. His hemoglobin is 7.6 an MCV low at 69. He was given iron infusion but I do not see evidence that he had any blood transfusions. He states he took iron for a while but it bothered his bowels. His hemoglobin had come up to over 14 last February. He had a colonoscopy many years ago but not in the last 10 years. Review of Systems Review of Systems: All systems reviewed & are unremarkable except as noted in HPI and below [facility] Past Medical History Medical History (Updated 03/13/22 @ 17:05 by Pranay Campos MD) Asbestosis Atherosclerotic heart disease of [place] coronary artery without angina pectoris Diastolic heart failure Echocardiogram April 2016: Normal ejection fraction of 65%, grade 2 diastolic dysfunction Hyperlipidemia Hypertension Kidney stones Surgical History Surgical History History of heart artery stent (~2010) History of hernia repair Right inguinal hernia repair x2 with most recent repair July 2015 History of partial thyroidectomy (~01/2011) Family History Family History Mother Heart disease Father Heart disease Melanoma Social History Social History Social History: He lives in [place] with his of 63 years. They had 2 sons. 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 He is still independent in activities of daily living and ambulates without assistance. He still drives. He had a distant history of 20 pack per year smoking history but quit smoking in . [place]
--- NOTE | 2022-03-13 18:00 | ADMGEN ---
This patient, Pranay Casanova, was admitted to Medical Room 250-01. Patient/family oriented to hospital policies and general routines including ID bracelet, bed and alarms, visiting hours, pain management, procedures, bathroom and other care routines, personal items, smoking policy, room service/diet, and visiting hours. Information on how to activate the Rapid Response Team has been discussed. Patient/Family are encouraged to report perceived risks to care and to ask questions if they do not understand what they are told or what they should do.
[2022-03-13] MEDS: SODIUM CHLORIDE 0.9% IV 250 ML 30 ML IV CONT (18:30)
--- NOTE | 2022-03-13 18:48 | PM.IMHP ---
H&P: HPI History of Present Illness Date/Time: 03/13/22 18:48 Chief Complaint: Dizziness Narrative: This is a 81-year-old male patient who came to the ER from home. The patient noticed the symptoms yesterday. The patient stated that he could not even walk 50 ft before he became lightheaded dizzy and also short of breath. The patient had no fever chills. No cough. No nausea vomiting no diarrhea. He did not notice any blood in his stool. Patient's H&H is 6.8 and 14.7. Typically he has a normal baseline. He is not on any anticoagulations but is on aspirin. Patient was found to be guaiac-positive in the emergency room. His sodium is 134. Patient was ordered IV fluids and he was type and crossmatch for 2 units of packed red blood cells. Patient is being admitted for observation status on the date of service of 03/13/2022. Review of Systems Review of Systems: See HPI All systems reviewed & are unremarkable except as noted in HPI and below Constitutional: Constitutional: Reports as per HPI and Reports no additional constitutional complaints Eyes: Eyes: Reports as per HPI and Reports no additional eye complaints ENT: Reports system reviewed and no additional complaints, except as documented and Reports Normal hearing present Cardiovascular: Cardiovascular: Reports no additional cardiovascular complaints Respiratory: Respiratory: Reports no additional respiratory complaints and Reports no additional respiratory complaints Gastrointestinal: Gastrointestinal: Reports as per HPI and Reports no additional gastrointestinal complaints Musculoskeletal: Musculoskeletal: Reports no additional musculoskeletal complaints Integumentary/Breasts: Skin/Breast: Reports system reviewed and no additional complaints, except as docu and Reports as per HPI Neurologic: Reports system reviewed and no additional complaints, except as documented, Reports as per HPI and Reports Normal hearing present Psychiatric: Psychiatric: Reports no additional psychiatric complaints and Reports as per HPI Endocrine: Endocrine: Reports no additional endocrine complaints Hematologic/Lymphatic: Hematologic/Lymphatic: Reports no additional hematologic/lymphatic complaints Allergic/Immunologic: Allergic/Immunologic: Reports no additional allergic/immunologic complaints [facility] Past Medical History Medical History (Updated 03/13/22 @ 18:54 by Steffi Campoverde NP) Asbestosis Atherosclerotic heart disease of [place] coronary artery without angina pectoris COPD (chronic obstructive pulmonary disease) Diastolic heart failure Echocardiogram April 2016: Normal ejection fraction of 65%, grade 2 diastolic dysfunction Hyperlipidemia Hypertension Kidney stones Surgical History Surgical History (Updated 03/13/22 @ 18:54 by Steffi Campoverde NP) H/O cataract extraction History of heart artery stent (~2010) History of hernia repair Right inguinal hernia repair x2 with most recent repair July 2015 History of partial thyroidectomy (~01/2011) History of tonsillectomy Family History Family History Mother Heart disease Father Heart disease Melanoma Social History Social History Social History: He lives in [place] with his of 63 years. They had 2 sons. He is retired from the [employer]. He is still independent in activities of daily living and ambulates without assistance. He still drives. He had a distant history of 20 pack per year smoking history but quit smoking in . Primary care physician: Dr. Iam Sabillon Code status: DNR/DNI per patient request Surrogate decision maker: Tonia () Smoking packs per day: 1 Smoking cigarettes per day: 20.0 Years smoked: 20 Smoking pack-years: 20.00 Smoking status: Former smoker Second hand tobacco smoke exposure: No Alcohol intake: never Substance use: never [place]
[2022-03-13] MEDS: polyethylene glycoL 3350 238 GM BOTTLE PO (20:31)
[2022-03-13] MEDS: FAMOTIDINE 20 MG/2 ML VIAL IV PUSH (22:25)
[2022-03-13] MEDS: BISACODYL 5 MG TABLET EC 20 MG PO (23:05)
[2022-03-14] VITALS (17 sets, daily range): BP systolic 90–151; BP diastolic 40–72; PULSE 66–92; RESP 14–20; TEMP 36.2–36.6; O2SAT 95–100
[2022-03-14 01:32] LABS: Hematocrit 32.2 % (42.0-52.0); Hemoglobin 8.8 g/dL (14.0-18.0)
[2022-03-14 06:07] LABS: Basophils Absolute Auto 0.1 K/mm3 (0.0-0.1); Basophils Percent Auto 1.3 % (0.2-1.2); Eosinophils Absolute Auto 0.3 K/mm3 (0-0.3); Eosinophils Percent Auto 2.7 % (0-4.4); Hematocrit 30.8 % (42.0-52.0); Hemoglobin 8.5 g/dL (14.0-18.0); Immature Granulocyte Absolute 0.04 K/mm3 (0.00-0.031); Immature Granulocyte Percent A 0.4 % (0-0.5); Immature Platelet Fraction Pct 3.4 % (0.9-11.2); Lymphocytes Absolute Auto 1.23 K/mm3 (0.9-3.2); Lymphocytes Percent Auto 12.2 % (18.3-44.2); Mean Corpuscular HGB Conc 27.6 g/dl (32-36); Mean Corpuscular Hemoglobin 18.3 pg (26-34); Mean Corpuscular Volume 66.2 fl (80-100); Mean Platelet Volume 9.9 fl (7.4-10.4); Monocytes Absolute Auto 1.3 K/mm3 (0.1-0.6); Neutrophils Absolute Auto 7.1 K/mm3 (1.3-6.7); Neutrophils Percent Auto 70.4 % (45.5-73.1); Platelet Count Result 277 k/mm3 (150-375); Red Blood Count 4.65 M/mm3 (4.6-6.20); Red Cell Distribution Width 24.7 % (11.5-14.5); White Blood Count 10.1 K/mm3 (4.5-10.0)
[2022-03-14 06:25] LABS: Alanine Aminotransferase 10 U/L (6-50); Alkaline Phosphatase 66 U/L (38-126); Anion Gap 9 mmol/L (8-16); Aspartate Amino Transferase 28 U/L (17-59); Blood Urea Nitrogen 18 mg/dL (9-20); Calcium 9.3 mg/dL (8.4-10.2); Carbon Dioxide 25 mmol/L (22-30); Chloride 100 mmol/L (98-107); Estimated CRCL calculation 47 ml/min; Estimated Glomerular Filt Rate > 60; Glucose 86 mg/dL (65-110); Potassium 4.1 mmol/L (3.4-5.0); Sodium 134 mmol/L (137-145)
[2022-03-14 06:30] LABS: Hypochromasia 1+ (NORMAL); Ovalocytes 1+ (NORMAL); Platelet Estimate Adequate (Adequate); Poikilocytosis 1+ (NORMAL)
[2022-03-14 06:33] LABS: Anisocytosis 1+ (NORMAL); Schistocytes 1+ (NORMAL)
[2022-03-14 09:04] LABS: Glucose Point of Care 88 mg/dl (65-105)
[2022-03-14] MEDS: CHOLECALCIFEROL 1,000 UNITS TABLET 1000 UNITS PO (09:34)
[2022-03-14] MEDS: BISACODYL 5 MG TABLET EC 10 MG PO (09:34)
[2022-03-14] MEDS: ATORVASTATIN 20 MG TABLET PO (09:34)
[2022-03-14] MEDS: FAMOTIDINE 20 MG/2 ML VIAL IV PUSH (09:34)
[2022-03-14 11:38] LABS: Iron 18 ug/dL (49-181)
[2022-03-14 11:54] LABS: Percent Iron Saturation 4 % (20-50)
[2022-03-14] MEDS: LACTATED RINGERS 1,000 ML 150 ML IV CONT (12:04)
--- NOTE | 2022-03-14 12:11 | WPDANESEPPF ---
Anes - Initial Pre Proc Eval Procedure: Operation Date: 03/14/22 12:45 Proposed Procedures p Esophagogastroduodenoscopy & Colonoscopy - Pranay Campos MD Date/Time: 03/14/22 12:11 Surgeon: Avelino Gaspar MD Pre Op Diagnosis: Symptomatic anemia/GI bleed Patient Data Age: 81 Gender: M Height: 1.78 m Weight: 77.7 kg Last Vital Signs Temp 97.8 F 03/14/22 12:09 Pulse 86 03/14/22 12:09 Resp 18 03/14/22 12:09 BP 151/69 H 03/14/22 12:09 Pulse Ox 96 03/14/22 12:09 O2 Del Method Room Air 03/14/22 12:09 Allergies Allergy/AdvReac Type Severity Reaction Status Date / Time No Known Allergies Allergy Unknown Verified 03/13/22 18:30 Home Medications Medication Instructions Recorded Confirmed Type cholecalciferol (vitamin D3) 25 25 mcg PO DAILY 09/17/20 03/13/22 History mcg (1,000 unit) capsule omega 3-abj-xmg-fish oil 1,000 mg 1 cap PO DAILY 09/17/20 03/13/22 History (120 mg-180 mg) capsule (Fish Oil) vitamin E 200 unit capsule 200 unit PO DAILY 09/17/20 03/13/22 History aspirin 81 mg tablet 81 mg PO DAILY 11/21/20 03/13/22 History vitamin B complex (B 1 tablet PO DAILY 12/24/20 03/13/22 History Complex-Vitamin B12 tablet) amlodipine 5 mg tablet 5 mg PO DAILY #90 tabs 10/03/21 03/13/22 Rx cephalexin 500 mg capsule See Rx Instructions .Route 10/03/21 03/13/22 Rx .COMPLEX PRN infection #30 caps lisinopril 10 mg tablet See Rx Instructions .Route 11/04/21 03/13/22 Rx .COMPLEX #90 tabs atorvastatin 20 mg tablet 20 mg PO DAILY #90 tabs 03/10/22 03/13/22 Rx Laboratory Tests 03/13/22 03/13/22 03/13/22 15:29 15:29 16:34 WBC 9.1 K/mm3 K/mm3 (4.5-10.0) RBC 4.21 M/mm3 L M/mm3 (4.6-6.20) Hgb 6.8 g/dL L* g/dL (14.0-18.0) Hct 26.5 % L % (42.0-52.0) MCV 62.9 fl L fl (80-100) MCH 16.2 pg L pg (26-34) MCHC 25.7 g/dl L g/dl (32-36) RDW 19.7 % H % (11.5-14.5) Plt Count 334 k/mm3 k/mm3 (150-375) MPV 10.0 fl fl (7.4-10.4) Immature Gran % (Auto) 0.3 % % (0-0.5) Neut % (Auto) 74.4 % H % (45.5-73.1) Lymph % (Auto) 12.1 % L % (18.3-44.2) [place] % (Auto) 10.1 % H % (2.6-8.5) Eos % (Auto) 1.9 % % (0-4.4) Baso % (Auto) 1.2 % % (0.2-1.2) Lymph # (Auto) 1.10 K/mm3 K/mm3 (0.9-3.2) [place] # (Auto) 0.9 K/mm3 H K/mm3 (0.1-0.6) Eos # (Auto) 0.2 K/mm3 K/mm3 (0-0.3) Baso # (Auto) 0.1 K/mm3 K/mm3 (0.0-0.1) Abs Immat Gran (auto) 0.03 K/mm3 K/mm3 (0.00-0.031) Absolute Neuts (auto) 6.8 K/mm3 H K/mm3 (1.3-6.7) Absolute Nucleated RBC 0.0 K/mm3 K/mm3 (0.0-0.012) Nucleated RBC % 0.0 % % (0.0-0.2) Platelet Estimate Adequate (Adequate) % Immature Plt Fraction 3.8 % % (0.9-11.2) Hypochromasia 1+ (NORMAL) Poikilocytosis Anisocytosis 1+ (NORMAL) Ovalocytes 1+ (NORMAL) Schistocytes PT 13.9 Seconds Seconds (11.1-14.7) INR 1.1 APTT 25.3 SECONDS SECONDS (22.3-36.8) Sodium 134 mmol/L L mmol/L (137-145) Potassium 4.5 mmol/L mmol/L (3.4-5.0) Chloride 99 mmol/L mmol/L (98-107) Carbon Dioxide 23 mmol/L mmol/L (22-30) Anion Gap 12 mmol/L mmol/L (8-16) BUN 18 mg/dL mg/dL (9-20) Creatinine 1.20 mg/dL mg/dL (0.7-1.3) Estim Creat Clear Calc 44 ml/min ml/min Estimated GFR 58 L (59 - ) Glucose 130 mg/dL H mg/dL (65-110) POC Capillary Glucose Calcium 9.7 mg/dL mg/dL (8.4-10.2) Iron TIBC % Saturation Total Bilirubin 0.3 mg/dL mg/dL (0.2-1.3) AST 23 U/L U/L (17-59) ALT 13 U/L U/L (6-50) Alkaline Phosphatase 65 U
--- NOTE | 2022-03-14 12:15 | SUR.OPER ---
EGD start 1215 end 1219, Colon start 1224 end 1233
--- NOTE | 2022-03-14 12:38 | SUR.OPER ---
Dr. Campos made aware that H-pylori test is positive.
--- NOTE | 2022-03-14 12:47 | SUR.PHASEII ---
Dr Campos aware of positive H. Pylori.
[2022-03-14 13:17] LABS: Hematocrit 29.4 % (42.0-52.0)
--- NOTE | 2022-03-14 13:33 | WPDGIPROGNO ---
Progress Note: A&P Assessment and Plan (1) Gastritis: Code(s): K29.70 - Gastritis, unspecified, without bleeding Status: Acute Assessment and Plan: I will start him on triple therapy for H pylori. He cannot take clarithromycin due to interaction with calcium channel dony. Will begin amoxicillin 1 g twice a day, metronidazole 500 mg twice a day, pantoprazole 40 mg twice a day. The intent is to treat him for 14 day (2) Iron deficiency anemia: Qualifiers: Iron deficiency anemia type: unspecified iron deficiency Qualified Code(s): D50.9 - Iron deficiency anemia, unspecified Code(s): D50.9 - Iron deficiency anemia, unspecified Status: Acute Assessment and Plan: last year when he took iron his blood counts came up very nicely. He states he stopped iron because it bothers his stomach. I think that he would tolerate a slow release form of iron. Additional Plan From my perspective, he could be discharged on regular diet, H pylori therapy, and iron supplement. He should have a follow-up CBC but his primary care provider in about 8 weeks. Subjective Date/time seen: 03/14/22 13:33 EGD revealed gastritis. the rapid urease test for H.pylori was immediately positive Review of Systems Review of Systems: All systems reviewed & are unremarkable except as noted in HPI and below Exam Const: General: alert Orientation/consciousness: patient oriented x3 Resp: Auscultation: clear to auscultation bilaterally Cardio: Rhythm: regular rhythm GI: GI Palp: Yes Soft to palpation and No Tenderness to palpation present (GI) Neuro: General: patient oriented x3 Objective Data Vital Signs Vital Signs: Vital Signs - 24 hr 03/13/22 15:05 03/13/22 16:28 03/13/22 17:19 Temperature 36.2 C L Pulse Rate 59 L 90 75 Respiratory Rate 16 18 Blood Pressure 112/52 L 114/76 Pulse Oximetry 99 98 Oxygen Delivery Room Air 03/13/22 17:27 03/13/22 17:33 03/13/22 18:36 Temperature 36.6 C Pulse Rate 91 98 98 Respiratory Rate 20 18 20 Blood Pressure 114/76 111/65 113/61 Pulse Oximetry 98 99 100 Oxygen Delivery 03/13/22 18:55 03/13/22 18:00 03/13/22 19:55 Temperature 36.6 C 36.3 C L Pulse Rate 98 98 90 Respiratory Rate 18 18 20 Blood Pressure 114/63 140/73 Pulse Oximetry 99 99 99 Oxygen Delivery Room Air 03/13/22 20:55 03/13/22 21:55 03/13/22 21:55 Temperature 36.4 C 36.4 C 36.4 C Pulse Rate 72 70 70 Respiratory Rate 21 H 20 20 Blood Pressure 130/68 120/57 L 120/57 L Pulse Oximetry 100 98 99 Oxygen Delivery 03/13/22 21:59 03/13/22 22:00 03/13/22 22:01 Temperature 36.4 C 36.9 C 36.7 C Pulse Rate 70 85 92 Respiratory Rate 20 20 20 Blood Pressure 120/57 L 121/83 143/68 H Pulse Oximetry 99 98 98 Oxygen Delivery 03/13/22 22:01 03/13/22 22:07 03/13/22 22:15 Temperature 36.4 C 36.4 C 36.4 C Pulse Rate 70 70 69 Respiratory Rate 20 20 16 Blood Pressure 120/57 L 120/57 L 108/63 Pulse Oximetry 99 99 100 Oxygen Delivery 03/13/22 20:00 03/13/22 23:07 03/13/22 23:15 Temperature 36.7 C 36.6 C Pulse Rate 74 70 Respiratory Rate 16 20 Blood Pressure 135/68 116/61 Pulse Oximetry 97 98 Oxygen Delivery Room Air 03/14/22 00:15 03/14/22 00:58 03/13/22 20:00 Temperature 36.5 C 36.3 C L Pulse Rate 78 81 89 Respiratory Rate 20 14 Blood Pressure 145/72 H 138/71 Pulse Oximetry 98 98 Oxygen Delivery 03/14/22 00:00 03/14/22 04:00 03/14/22 06:25 Temperature 36.3 C L Pulse Rate 92 75 79 Respiratory Rate 18 Blood Pressure 127/61 Pulse Oximetry 95 Oxygen Delivery 03/14/22 08:00 03/14/22 09:20 03/14/22 11:31 Temperature Pulse Rate 71 73 Respiratory Rate Blood Pressure Pulse Oximetry 95 Oxygen Delivery Room Air Room Air 03/14/22 12:09 03/14/22 12:34 03/14/22 12:44 Temperature 36.6 C Pulse Rate 86 66 74 Respiratory Rate 18 14 18 Blood Pressure 151/69 H 90/40 L 105/60 Pulse Oximetry 96 1
--- NOTE | 2022-03-14 15:24 | PM.DS ---
DS: Admitting Diagnosis Discharge Date 03/14/2022 1525 Admitting Diagnosis GI bleed Anemia from acute blood loss DS: Discharge Diagnosis Discharge Diagnosis (1) GI bleed: Qualifiers: GI bleed type/associated pathology: gastritis Gastritis type: unspecified gastritis Qualified Code(s): K29.71 - Gastritis, unspecified, with bleeding Code(s): K92.2 - Gastrointestinal hemorrhage, unspecified Status: Acute Assessment and Plan: typed/cross-matched and transfused 2 units of packed red blood cells. -aspirin held prior to endoscopy. -found to be guaiac-positive in the emergency room. -GI has been consulted and recommended EGD and colonoscopy. -03/14 EGD with diffuse gastritis with erythematous and edematous changes, mild duodenitis in duodenal bulb -Diverticulosis without diverticulitis (2) H. pylori duodenitis: Code(s): K29.80 - Duodenitis without bleeding; B96.81 - Helicobacter pylori [H. pylori] as the cause of diseases classified elsewhere Status: Acute Assessment and Plan: EGD with mild duodenitis in the duodenal bulb JOSE J test pending at discharge. amoxicillin 1 g twice a day, metronidazole 500 mg twice a day, pantoprazole 40 mg twice a day x14 days initiated (3) Gastritis: Qualifiers: Gastritis type: unspecified gastritis Chronicity: unspecified Gastritis bleeding: presence of bleeding unspecified Qualified Code(s): K29.70 - Gastritis, unspecified, without bleeding Code(s): K29.70 - Gastritis, unspecified, without bleeding Status: Acute Assessment and Plan: Diffuse gastritis on EGD. Treatment H.pylori initiated On PPI. (4) Symptomatic anemia: Code(s): D64.9 - Anemia, unspecified Status: Acute Assessment and Plan: H/H 6.03/17; last H/H in 02/2021 +fatigue, dizziness. s/p 2 units PRBC on 03/13 Slow release iron supplement initated. Low MCV, MCH, MCHC suggesting iron deficiency anemia from acute bleeding DS: Summary Hospital Course Reason for hospitalization: Dizziness Hospital Course: Pranay Casanova is an 81-year-old male with medical history of COPD, asbestosis, diastolic CHF, hypertension, hyperlipidemia, and CAD with heart stents. He presented to the ED, from home for evaluation of dizziness, SOB and lightheadedness. His symptoms started the day before admission.? The patient stated he could not even walk 50 ft before he became lightheaded, dizzy and short of breath.? The patient had no fever, chills or rigors.? No cough.? No nausea, vomiting or diarrhea.? He did not notice any blood in his stool.? Patient's H&H was noted to be 6.8/26.? Typically he has a normal hemoglobin at baseline.? He is not on any anticoagulations but does take aspirin.? Patient was found to be guaiac-positive in the emergency room.? His sodium is 134, but otherwise chemistry was normal.? Patient was given IV fluids and 2 units of packed red blood cell transfusion was ordered.? Patient was referred for observation. GI was consulted. Patient was treated with IV fluids and IV famotidine BID. H/H was monitored and was 8.0/29 at discharge. 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 JOSE J test pending. Colonoscopy showed diverticulosis without diverticulitis of transverse, descending and sigmoid colon. He was started on H.pylori treatment- amoxicillin 1 gram BID, metronidazole 500 mg BID, protonix 40 mg BID for 14 days. High fiber diet is recommended. Patient was also started on slow release iron tablets BID and will resume aspirin after discharge. Repeat H/H in 8 weeks was recommended, patient is also noted to have scheduled lab work with his PCP on 03/20/22 and was instructed to keep blood work as scheduled. Patient was discharged home in stable condition. Dizziness and lightheadedness resolved. Shortness of breath returned to baseline. He did endorse a decline in activity level due
== END 2022-03-14 17:21 | disposition home or self-care (01) ==
LOC: ANHED 16:55 → ANH2MED 03-14 15:24
PROVIDERS: Internal Medicine Gastroenterology; Nurse Practitioner; Admitting Provider Internal Medicine; Emergency Provider Emergency Medicine; PCP Internal Medicine; Visit Provider Nurse Practitioner Family
PROC: 0DJ08ZZ Inspection of Upper Intestinal Tract, Via Natural or Artificial Opening Endoscopic (ICD-10-PCS; CPT 43235; principal; 2022-03-14 12:45)
DX: K22.2 Esophageal obstruction (principal); K21.9 Gastro-esophageal reflux disease without esophagitis; K29.70 Gastritis, unspecified, without bleeding; K29.80 Duodenitis without bleeding; K57.30 Diverticulosis of large intestine without perforation or abscess without bleeding; R19.5 Other fecal abnormalities; D50.9 Iron deficiency anemia, unspecified; I25.10 Atherosclerotic heart disease of native coronary artery without angina pectoris; Z95.5 Presence of coronary angioplasty implant and graft; I11.0 Hypertensive heart disease with heart failure; I50.30 Unspecified diastolic (congestive) heart failure; E78.5 Hyperlipidemia, unspecified; I49.1 Atrial premature depolarization; I44.4 Left anterior fascicular block; R42 Dizziness and giddiness; J44.9 Chronic obstructive pulmonary disease, unspecified; J61 Pneumoconiosis due to asbestos and other mineral fibers; Z99.81 Dependence on supplemental oxygen; R94.31 Abnormal electrocardiogram [ECG] [EKG]; Z87.891 Personal history of nicotine dependence; Z79.82 Long term (current) use of aspirin; Z79.899 Other long term (current) drug therapy
CPT/HCPCS: 43239; 45378; 36415; 36430; 80053; 82948; 83540; 83550; 85014; 85018; 85025; 85055; 85610; 85730; 86850; 86900; 86901; 86920; 87081; 88305; 88312; 88342; 93005; 96374; 96376; 99285; A9270; G0378; J2001; J2704; J7050; J7120; P9016

== ENCOUNTER 2022-04-27 09:09 | Observation (INO) | payer MEDICARE, SELFPAY ==
[2022-04-27] VITALS (19 sets, daily range): BP systolic 104–129; BP diastolic 54–70; PULSE 88–99; RESP 18–26; TEMP 36.1–38; O2SAT 94–100; BMI 24.4
--- NOTE | ~2022-04-27 | CT_ITS ---
EXAMINATION: CT abdomen wo/w con DATE: 04/30/2022 11:45 INDICATION: Renal mass TECHNIQUE: Computed tomography (CT) of the abdomen and pelvis was performed without and with 100 cc O mnipaque 350 intravenous contrast. The dose-length product was 767.54 mGy-cm. Automated exposure cont rol and iterative reconstruction technique were employed. COMPARISON: Ultrasound dated 04/27/[address] dated 04/27/2022. FINDINGS: There is bilateral lower lobe consolidation which may represent pneumonia and/or atelectasi s. Heart size normal. Small pleural effusions. Moderate atherosclerosis of the aorta without aneurysm . Retroaortic left renal vein. There are calcified granulomas of the liver and spleen. There is a arlene er cyst. There is a right renal lesion laterally measuring 2.2 cm which is hyperdense precontrast. No significant enhancement. Density measurements are 60 Hounsfield units pre and postcontrast. Findings compatible with a hemorrhagic or proteinaceous cyst. There are bilateral renal cysts. Nonobstructive bowel pattern. No lymphadenopathy. Retroaortic left renal vein. There is lumbar spondylosis. No acut e osseous abnormality. There is hepatomegaly. IMPRESSION: 1. Right renal mass laterally measuring 2.2 cm with characteristics compatible with a hemorrhagic or proteinaceous cysts. Multiple additional cysts are seen in both kidneys. 2: Bilateral lower lobe consolidation which may represent pneumonia and/or atelectasis. 3: Small pleural effusions. 4: Hepatomegaly. Reviewed, dictated and finalized at location A. IMPRESSION: 1. Right renal mass laterally measuring 2.2 cm with characteristics compatible with a hemorrhagic or proteinaceous cysts. Multiple additional cysts are seen i n both kidneys. 2: Bilateral lower lobe consolidation which may represent pneumonia and/or ate lectasis. 3: Small pleural effusions. 4: Hepatomegaly.
--- NOTE | ~2022-04-27 | CT_ITS ---
EXAMINATION: CT abdomen pelvis w con DATE: 04/27/2022 10:57 INDICATION: Abdominal pain. Leukocytosis. TECHNIQUE: Computed tomography (CT) of the abdomen and pelvis was performed with 100 mL Omnipaque 350 intravenous contrast. Automated exposure control and iterative reconstruction technique were employe d. The dose-length product was 418.00 mGy-cm. COMPARISON: CT abdomen and pelvis 11/20/2020, 07/08/18 FINDINGS: The visualized portions of the lung bases demonstrate emphysema and mild atelectasis. No pl eural effusion. The heart size is normal. No pericardial effusion. There is a 1.9 cm cyst in the live r. The gallbladder is normal. Calcifications in the spleen are consistent with old granulomatous dise ase. The pancreas and adrenal glands are normal. There is a 2.0 cm mass in right kidney measuring sof t tissue attenuation, increased from 1.5 cm on 07/08/18. There are cysts in the kidneys measuring up to 3.0 cm on the left. The bladder is decompressed by a Bliss catheter. The prostate is moderately en larged. There is diverticulosis of the colon without evidence of diverticulitis. The appendix is not visualized. There are no pathologically enlarged lymph nodes. There is no free intraperitoneal fluid. There is prominent fat in right femoral canal that may be a hernia. There is severe lumbar spondylos is. Lumbar levocurvature is noted. IMPRESSION: 1. 2.0 cm right kidney mass, which may be a hemorrhagic cyst or less likely a neoplasm. Abdomen CT wi thout and with contrast is recommended. 2. Emphysema. Reviewed, dictated and finalized at location A. IMPRESSION: 1. 2.0 cm right kidney mass, which may be a hemorrhagic cyst or less likely a n eoplasm. Abdomen CT without and with contrast is recommended. 2. Emphysema.
--- NOTE | ~2022-04-27 | US_ITS ---
US renal BI 04/27/2022 17:09 Procedure: Realtime transabdominal ultrasound of the kidneys and bladder. Indication: Follow-up right renal mass Comparison: CT dated 04/27/2022 Findings: Renal echotexture is normal bilaterally. In the lateral margin of the right kidney there is a 1.9 x 1.8 x 1.7 cm cyst corresponding to the finding seen on recent CT examination. There is a sec ond 1 cm cyst in the right kidney. In the left kidney there is a 2.5 cm cyst. No hydronephrosis. Impression: 1: Bilateral renal cysts. No solid masses are identified to suggest malignancy. Reviewed, dictated and finalized at location A. Impression: 1: Bilateral renal cysts. No solid masses are identified to suggest malignancy.
[2022-04-27 09:36] LABS: Basophils Absolute Auto 0.1 K/mm3 (0.0-0.1); Basophils Percent Auto 0.3 % (0.2-1.2); Eosinophils Percent Auto 0.1 % (0-4.4); Hematocrit 23.9 % (42.0-52.0); Immature Granulocyte Absolute 0.09 K/mm3 (0.00-0.031); Immature Granulocyte Percent A 0.5 % (0-0.5); Lymphocytes Absolute Auto 0.76 K/mm3 (0.9-3.2); Lymphocytes Percent Auto 4.3 % (18.3-44.2); Mean Corpuscular HGB Conc 26.8 g/dl (32-36); Mean Corpuscular Hemoglobin 17.3 pg (26-34); Mean Corpuscular Volume 64.4 fl (80-100); Mean Platelet Volume 9.9 fl (7.4-10.4); Monocytes Absolute Auto 1.9 K/mm3 (0.1-0.6); Monocytes Percent Auto 10.9 % (2.6-8.5); Neutrophils Absolute Auto 14.7 K/mm3 (1.3-6.7); Neutrophils Percent Auto 83.9 % (45.5-73.1); Platelet Count Result 281 k/mm3 (150-375); Red Blood Count 3.71 M/mm3 (4.6-6.20); Red Cell Distribution Width 22.6 % (11.5-14.5); White Blood Count 17.5 K/mm3 (4.5-10.0)
[2022-04-27 09:45] LABS: INR 1.2
[2022-04-27 09:46] LABS: Hemoglobin 6.4 g/dL (14.0-18.0); Hypochromasia 1+ (NORMAL); Ovalocytes 1+ (NORMAL); Partial Thromboplastin Time 35.6 SECONDS (22.3-36.8); Platelet Estimate Adequate (Adequate)
[2022-04-27 09:47] LABS: Acanthocytes 1+ (NORMAL); Schistocytes None Seen (NORMAL)
[2022-04-27 09:50] LABS: Alanine Aminotransferase 18 U/L (6-50); Albumin Level 3.7 g/dL (3.5-5.1); Alkaline Phosphatase 75 U/L (38-126); Anion Gap 13 mmol/L (8-16); Aspartate Amino Transferase 27 U/L (17-59); Bilirubin,Total 0.5 mg/dL (0.2-1.3); Blood Urea Nitrogen 16 mg/dL (9-20); Calcium 8.7 mg/dL (8.4-10.2); Carbon Dioxide 20 mmol/L (22-30); Chloride 97 mmol/L (98-107); Estimated CRCL calculation 47 ml/min; Estimated Glomerular Filt Rate > 60; Glucose 108 mg/dL (65-110); Potassium 3.7 mmol/L (3.4-5.0); Sodium 130 mmol/L (137-145)
--- NOTE | 2022-04-27 10:04 | ED.GENADULT ---
HPI - General Adult General Chief complaint: Urogenital-Male Stated complaint: trouble urinating, fever Time Seen by Provider: 04/27/22 09:48 History of Present Illness HPI narrative: Patient is an 81-year-old male with a history of iron deficiency anemia here for evaluation of urinary retention for the past 3 days. Patient states that he has had intermittent dribbles of urine, but he has not had a normal stream. Has no history of urinary retention. He also reports intermittent issues with stooling over the past several days; reports loose stools that he is unsure if they are bloody. He takes iron supplementation. He has had a full work-up for his anemia, including upper and lower endoscopies; upper revealed gastritis and he tested positive for H.pylori; completed treatment. He has had to receive blood transfusions in the past. Related Data Home Medications Medication Instructions Recorded Confirmed cholecalciferol (vitamin D3) 25 25 mcg PO DAILY 09/17/20 04/19/22 mcg (1,000 unit) capsule omega 7-eye-obu-fish oil 1,000 mg 1 cap PO DAILY 09/17/20 04/19/22 (120 mg-180 mg) capsule (Fish Oil) vitamin E 200 unit capsule 200 unit PO DAILY 09/17/20 04/19/22 aspirin 81 mg tablet 81 mg PO DAILY 11/21/20 04/19/22 Allergies Allergy/AdvReac Type Severity Reaction Status Date / Time No Known Allergies Allergy Unknown Verified 04/27/22 09:40 Review of Systems Review of Systems: Gen: Denies fevers or chills Eyes: Denies eye pain or visual change ENT: Denies congestion Respiratory: Denies shortness of breath or cough CV: Denies chest pain or palpitations GI: Reports blood in stool. Reports abdominal pain nausea, emesis or diarrhea : Reports urinary retention. Musculoskeletal: Denies back pain or muscle pain Neuro: Denies numbness, tingling, weakness or focal weakness Skin: Denies rash 10 point review of systems negative, other than as per history of present illness, past medical history and other positives and review of systems [facility] Past Medical History Medical History Asbestosis Atherosclerotic heart disease of [place] coronary artery without angina pectoris COPD (chronic obstructive pulmonary disease) Diastolic heart failure Echocardiogram April 2016: Normal ejection fraction of 65%, grade 2 diastolic dysfunction Hyperlipidemia Hypertension Kidney stones Surgical History Surgical History H/O cataract extraction History of heart artery stent (~2010) History of hernia repair Right inguinal hernia repair x2 with most recent repair July 2015 History of partial thyroidectomy (~01/2011) History of tonsillectomy Family History Family History Mother Heart disease Father Heart disease Melanoma Social History Social History (Updated 04/27/22 @ 13:04 by Steffi Campoverde NP) Social History: He lives in [place] with his of 64 years. They had 2 sons. He is retired from the [employer]. He is still independent in activities of daily living and ambulates without assistance. He still drives. He had a distant history of 20 pack per year smoking history but quit smoking in . Primary care physician: Dr. Iam Sabillon Code status: DNR/DNI per patient request Surrogate decision maker: Tonia () Smoking packs per day: 1 Smoking cigarettes per day: 20.0 Years smoked: 20 Smoking pack-years: 20.00 Smoking status: Former smoker Second hand tobacco smoke exposure: No Alcohol intake: never Substance use: never Gender identity (if verbalized by the patient): Male Sexual Orientation (if Verbalized by the Patient): Straight or Heterosexual Spiritual care concerns: No Exam Narrative: APPEARANCE: Well appearing, no pain in distress, well-nourished. Head: Normocephalic and atraumatic. EYES: PERRLA/EOMI, c
[2022-04-27 10:29] LABS: Appearance Urine Clear (Clear); Bilirubin Urine Negative (Negative); Blood Urine Trace-intact (Negative); Color Urine Yellow (Yellow); Glucose Urine UA Negative (Negative); Ketones Urine Negative (Negative); Leukocyte Esterase Ur Trace LEU/UL (Negative); Nitrate Urine Negative (Negative); Protein Urine Negative (Negative); Specific Grav Ur 1.015 (1.001-1.035); Urobilinogen Urine 0.2 mg/dL (<2.0); pH Urine 5.5 (5.0-9.0)
[2022-04-27 10:43] LABS: Bacteria Urine Trace /hpf; Mucus Urine Rare /lpf; Squamous Epithelial Cell Urine Rare /hpf (Few)
[2022-04-27 10:46] LABS: Add Urine Microscopic? YES
[2022-04-27 10:51] LABS: Lactic Acid Reflex 1.2 mmol/L (0.7-2.0)
--- NOTE | 2022-04-27 13:02 | PM.IMHP ---
H&P: HPI History of Present Illness Date/Time: 04/27/22 13:02 Chief Complaint: Difficulty urinating Narrative: This is an 81-year-old male patient who has a history of iron deficiency anemia. The patient has been having urinary retention for the last 3 days. The patient stated that he is only dribbling and is not having a normal stream. He has not had any past history of urinary retention. The nurses had difficulty placing a Bliss catheter. The nurse met resistance but was finally able to get and a Bliss catheter. The patient had 700 out of his Bliss catheter. The patient has oxygen on at 2 L per nasal cannula which is chronically from home. The patient was started on Rocephin for UTI. He was also given IV fluids. Patient's white count was noted to be 17.5. His H&H is 6.4 and 23.9. 1 unit packed red blood cells has been ordered. A stool for occult blood has been ordered. Sodium is 130. Although the patient only had trace leukocyte esterase and 6-10 rbc's and 10-15 wbc's the patient had been started on Rocephin. The patient is being admitted to observation status on the date of service of 04/27/2022 Review of Systems Review of Systems: See HPI All systems reviewed & are unremarkable except as noted in HPI and below Constitutional: Constitutional: Reports as per HPI and Reports no additional constitutional complaints Eyes: Eyes: Reports as per HPI and Reports no additional eye complaints ENT: Reports system reviewed and no additional complaints, except as documented and Reports Normal hearing present Cardiovascular: Cardiovascular: Reports no additional cardiovascular complaints Respiratory: Respiratory: Reports no additional respiratory complaints and Reports no additional respiratory complaints Gastrointestinal: Gastrointestinal: Reports as per HPI and Reports no additional gastrointestinal complaints Musculoskeletal: Musculoskeletal: Reports no additional musculoskeletal complaints Integumentary/Breasts: Skin/Breast: Reports system reviewed and no additional complaints, except as docu and Reports as per HPI Neurologic: Reports system reviewed and no additional complaints, except as documented, Reports as per HPI and Reports Normal hearing present Psychiatric: Psychiatric: Reports no additional psychiatric complaints and Reports as per HPI Endocrine: Endocrine: Reports no additional endocrine complaints Hematologic/Lymphatic: Hematologic/Lymphatic: Reports no additional hematologic/lymphatic complaints Allergic/Immunologic: Allergic/Immunologic: Reports no additional allergic/immunologic complaints [facility] Past Medical History Medical History Asbestosis Atherosclerotic heart disease of [place] coronary artery without angina pectoris COPD (chronic obstructive pulmonary disease) Diastolic heart failure Echocardiogram April 2016: Normal ejection fraction of 65%, grade 2 diastolic dysfunction Hyperlipidemia Hypertension Kidney stones Surgical History Surgical History H/O cataract extraction History of heart artery stent (~2010) History of hernia repair Right inguinal hernia repair x2 with most recent repair July 2015 History of partial thyroidectomy (~01/2011) History of tonsillectomy Family History Family History Mother Heart disease Father Heart disease Melanoma Social History Social History Social History: He lives in [place] with his of 64 years. They had 2 sons. He is retired from the [employer]. He is still independent in activities of daily living and ambulates without assistance. He still drives. He had a distant history of 20 pack per year smoking history but quit smoking in . Primary care physician: Dr. Iam Sabillon Code status: DNR/DNI per patient r
[2022-04-27] MEDS: SODIUM CHLORIDE 0.9% IV 250 ML 30 ML IV CONT (13:36)
--- NOTE | 2022-04-27 16:32 | WPDURCON ---
Assessment and Plan Assessment and plan (1) Urinary retention: Code(s): R33.9 - Retention of urine, unspecified Status: Acute (2) Kidney mass: Code(s): N28.89 - Other specified disorders of kidney and ureter Status: Acute Assessment and Plan: Urinary retention with reports of difficult catheter placement suggestive of a urethral stricture. The patient is medically fit on Sunday I may plan a simple cystoscopy with urethral dilatation. If he is doing poorly, however, we can plan cystoscopy as an outpatient. For the attypical cyst in his right kidney he needs follow-up CT scan both with and without contrast. I may defer for few days given the fact he just had a contrast load earlier this morning Urology Consult Note HPI Date Seen: 04/27/22 Requesting Physician: Mago Hannon MD Primary Care Provider: Iam Sabillon DO Consult Narrative Narrative: Pranay Casanova is a 81 year old male, Previously unknown to our practice, presents to the emergency department with a 3 to four-day history of marked difficulty urinating. Reportedly, ER nurse had some difficulty placing the Bliss catheter, sensing stricture in either the bulbous urethra at the bladder neck. Patient denies antecedent history of known BPH and has had no urethral instrumentation to his knowledge in the past. He does report markedly slow stream with sense of incomplete emptying and urinary frequency. It is unclear to me what volume was obtained with catheterization. He did have a CT scan the abdomen pelvis w/ contrast subsequent catheter placement which shows no hydronephrosis. The CT did show bilateral renal cyst, 1 which in the right kidney is slightly atypical. In addition to the urological findings the patient reports fevers and chills and is found to have a leukocytosis. Additionally he is significantly anemic. Review of Systems Constitutional: Constitutional: Reports chills and Reports fever(s) Cardiovascular: Cardiovascular: Denies chest pain, Denies lightheadedness, Denies palpitations and Denies dyspnea Respiratory: Respiratory: Denies dyspnea Gastrointestinal: Gastrointestinal: Denies diarrhea, Denies nausea and Denies vomiting Genitourinary: Genitourinary: Denies hematuria, Denies dysuria, Reports urinary frequency and Reports urinary hesitancy Endocrine: Endocrine: Denies palpitations PMFSH Past Medical History Medical History Asbestosis Atherosclerotic heart disease of [place] coronary artery without angina pectoris COPD (chronic obstructive pulmonary disease) Diastolic heart failure Echocardiogram April 2016: Normal ejection fraction of 65%, grade 2 diastolic dysfunction Hyperlipidemia Hypertension Kidney stones Surgical History Surgical History H/O cataract extraction History of heart artery stent (~2010) History of hernia repair Right inguinal hernia repair x2 with most recent repair July 2015 History of partial thyroidectomy (~01/2011) History of tonsillectomy Family History Family History Mother Heart disease Father Heart disease Melanoma Social History Social History Social History: He lives in [place] with his of 64 years. They had 2 sons. He is retired from the [employer]. He is still independent in activities of daily living and ambulates without assistance. He still drives. He had a distant history of 20 pack per year smoking history but quit smoking in . Primary care physician: Dr. Iam Sabillon Code status: DNR/DNI per patient request Surrogate decision maker: Tonia () Smoking packs per day: 1 Smoking cigarettes per day: 20.0 Years smoked: 20 Smoking pack-years: 20.00 Smoking status: Former smoker Second hand tobacco
[2022-04-27 16:58] LABS: Immature Reticulocyte Fraction 38.1 % (3.0-15.9); Reticulocyte Hemoglobin Conten 16.2 pg (28.2-35.7); Reticulocyte Percent 1.13 % (0.7-4.3); Reticulocytes Absolute 0.04 B/L (32.2-175.7)
[2022-04-27 16:58] LABS: Hematocrit 23.6 % (42.0-52.0)
[2022-04-27 17:03] LABS: Bilirubin,Total 0.4 mg/dL (0.2-1.3)
[2022-04-27 17:04] LABS: Lactate Dehydrogenase 93 U/L (120-246)
[2022-04-27 17:08] LABS: Hemoglobin 6.5 g/dL (14.0-18.0)
[2022-04-27 17:16] LABS: Transferrin 215 mg/dL (206-381)
[2022-04-27 17:20] LABS: Iron 16 ug/dL (49-181)
[2022-04-27 17:30] LABS: Percent Iron Saturation 5 % (20-50)
[2022-04-27 18:11] LABS: Folic Acid 11.1 ng/mL (2.76->20)
[2022-04-27] MEDS: TAMSULOSIN HCL 0.4 MG CAPSULE PO (20:28)
[2022-04-27] MEDS: PANTOPRAZOLE SODIUM IV 40 MG VIAL IV PUSH (20:29)
[2022-04-27 22:17] LABS: Hematocrit 26.5 % (42.0-52.0); Hemoglobin 7.7 g/dL (14.0-18.0)
[2022-04-27 22:21] LABS: Anion Gap 11 mmol/L (8-16); Blood Urea Nitrogen 14 mg/dL (9-20); Calcium 7.9 mg/dL (8.4-10.2); Carbon Dioxide 21 mmol/L (22-30); Chloride 101 mmol/L (98-107); Estimated CRCL calculation 52 ml/min; Estimated Glomerular Filt Rate > 60; Glucose 97 mg/dL (65-110); Potassium 3.6 mmol/L (3.4-5.0); Sodium 133 mmol/L (137-145)
[2022-04-28 03:06] VITALS: BP 109/52; PULSE 96; RESP 20; TEMP 36.9; O2SAT 96
[2022-04-28 04:46] LABS: Hemoglobin 7.5 g/dL (14.0-18.0); Immature Platelet Fraction Pct 3.2 % (0.9-11.2); Mean Corpuscular HGB Conc 28.8 g/dl (32-36); Mean Corpuscular Volume 65.8 fl (80-100); Mean Platelet Volume 9.6 fl (7.4-10.4); Platelet Count Result 246 k/mm3 (150-375); Red Blood Count 3.95 M/mm3 (4.6-6.20); Red Cell Distribution Width 23.7 % (11.5-14.5); White Blood Count 12.5 K/mm3 (4.5-10.0)
[2022-04-28 04:53] LABS: Lactic Acid Reflex 0.6 mmol/L (0.7-2.0)
[2022-04-28 04:55] LABS: Alanine Aminotransferase 15 U/L (6-50); Alkaline Phosphatase 64 U/L (38-126); Anion Gap 8 mmol/L (8-16); Aspartate Amino Transferase 25 U/L (17-59); Bilirubin,Total 0.8 mg/dL (0.2-1.3); Blood Urea Nitrogen 14 mg/dL (9-20); Calcium 7.9 mg/dL (8.4-10.2); Carbon Dioxide 20 mmol/L (22-30); Chloride 101 mmol/L (98-107); Estimated CRCL calculation 52 ml/min; Estimated Glomerular Filt Rate > 60; Glucose 92 mg/dL (65-110); Potassium 3.5 mmol/L (3.4-5.0); Sodium 129 mmol/L (137-145)
[2022-04-28 05:27] LABS: Band Neutrophils Percent 7 % (0-6); Basophils Absolute Manual 0.25 K/mm3 (0.0-0.1); Basophils Percent Manual 2 % (0-1); Eosinophils Absolute Manual 0.12 K/mm3 (0.02-0.5); Eosinophils Percent Manual 1 % (0-4); Metamyelocytes Percent 1 %; Monocytes Absolute Manual 0.75 K/mm3 (0.1-0.90); Monocytes Percent Manual 6 % (3-9); Myelocytes Percent 1 %; Neutrophils Absolute Manual 10.12 K/mm3 (1.3-6.7); Neutrophils Percent Manual 74 % (46-73); Total Cells Counted 100
[2022-04-28 05:28] LABS: Anisocytosis 2+ (NORMAL); Microcytosis 2+ (NORMAL); Ovalocytes 2+ (NORMAL); Platelet Estimate Adequate (Adequate); Poikilocytosis 2+ (NORMAL); Schistocytes 1+ (NORMAL); Tear Drop Cells 1+ (NORMAL)
[2022-04-28 05:29] LABS: Acanthocytes 1+ (NORMAL); Atypical Lymphocytes Present; Crenated RBC 1+ (NORMAL); Hypochromasia 1+ (NORMAL); Smudge Cells FEW; Stomatocytes 2+ (NORMAL)
--- NOTE | 2022-04-28 07:17 | WPDGICN ---
Assessment and Plan Assessment and plan (1) Gastritis: Qualifiers: Chronicity: unspecified Gastritis bleeding: presence of bleeding unspecified Gastritis type: unspecified gastritis Qualified Code(s): K29.70 - Gastritis, unspecified, without bleeding Code(s): K29.70 - Gastritis, unspecified, without bleeding Status: Acute Assessment and Plan: was found to have erosive gastritis month or so ago. He was positive for H pylori. He did take his treatment. I would like to check for his H pylori status. The breath test would not be reliable now because he has been on pantoprazole. Even if stool tests could be falsely negative but we will go ahead and order that (2) Iron deficiency anemia: Qualifiers: Iron deficiency anemia type: unspecified iron deficiency Qualified Code(s): D50.9 - Iron deficiency anemia, unspecified Code(s): D50.9 - Iron deficiency anemia, unspecified Status: Acute Assessment and Plan: this has been an ongoing problem for several years. One year ago he was hospitalized briefly with the same blood counts and received intravenous iron which raises hemoglobin back up to 14. Recent EGD and colonoscopy were negative for any bleeding source except he did have gastritis which was due date H pylori. He does not believe that he has seen a extraction machine operator in the past. I think he would be appropriate to consult Dr. Us. I will also schedule him for outpatient video capsule study of the small bowel. Stool Hemoccult was negative last year when he had a similar presentation. Another Hemoccult has been ordered This time, but not yet obtained. (3) Emphysema lung: Code(s): J43.9 - Emphysema, unspecified Status: Acute Assessment and Plan: He states that he is always somewhat short of breath but knew that something was wrong when he came to hospital yesterday because he was more dyspneic than usual. (4) Urinary tract infection: Code(s): N39.0 - Urinary tract infection, site not specified Status: Acute Assessment and Plan: He is being treated for urinary tract infection. Apparently was very difficult to cannulate his urethra. GI Consult Note Consult date/time: 04/28/22 07:17 HPI: Pranay Casanova is a 81 year old male For past see for recurrent anemia with apparent iron deficiency. I had just recently performed EGD and colonoscopy on him. We found that he had gastritis with few erosions. He was positive for H pylori. He did complete his therapy for H pylori. He states he was getting progressively weak at home was getting short of breath. He recalls that he was being set up for appointment to see extraction machine operator, Dr. Us as an outpatient, but that appointment had Not yet come to fruition. admission his hemoglobin was 6.5. He has been given 2 units of blood. His hemoglobin was 8 in mid February after he had been transfused I believe 1 unit of blood for hemoglobin of 6.8. He has been found to have a low serum iron suggestive of chronic blood loss his iron is now 16. It was up to 59 sometime last year after he had a hemoglobin of 7.6 and was then given iron, I believe infusion, and then it brought his hemoglobin up to 14 a few months later. his stool Hemoccult was negative at that time. Review of Systems Review of Systems: All systems reviewed & are unremarkable except as noted in HPI and below PMFSH Past Medical History Medical History Asbestosis Atherosclerotic heart disease of [place] coronary artery without angina pectoris COPD (chronic obstructive pulmonary disease) Diastolic heart failure Echocardiogram April 2016: Normal ejection fraction of 65%, grade 2 diastolic dysfunction Hyperlipidemia Hypertension Kidney stones Surgical History Surgical History H/O cataract extraction History of heart
[2022-04-28 08:00] VITALS: O2SAT 97
--- NOTE | 2022-04-28 08:02 | WPDUROPN2 ---
Progress Note: A&P Assessment and Plan (1) Urinary retention due to benign prostatic hyperplasia: Code(s): N40.1 - Benign prostatic hyperplasia with lower urinary tract symptoms; R33.8 - Other retention of urine Status: Acute (2) Kidney mass: Code(s): N28.89 - Other specified disorders of kidney and ureter Status: Acute Assessment and Plan: Given multiple other issues, I'll defer cystoscopy today. Instead, started Flomax and will plan voiding trial Sunday morning. If continues to have voiding difficulty thereafter can do cysto. as outpatient. So far, he's tolerating Flomax well. Renal u/s -> bilat. renal cysts without solid masses. No further evaluation needed for the attypical cyst identified on CT-scan Subjective Subjective Date/Time Seen: 04/28/22 08:02 Comfortable, tolerating Bliss catheter Review of Systems Cardiovascular: Cardiovascular: Denies chest pain, Denies lightheadedness, Denies palpitations and Denies dyspnea Respiratory: Respiratory: Denies dyspnea Gastrointestinal: Gastrointestinal: Denies diarrhea, Denies nausea and Denies vomiting Genitourinary: Genitourinary: Denies hematuria and Denies dysuria Endocrine: Endocrine: Denies palpitations Exam Const: General: no acute distress Resp: Effort & Inspection: normal respiratory effort GI: Inspection: non-distended GI Palp: No abdominal tenderness and No Guarding due to palpation present (GI) Auscultation: normal bowel sounds Urinary Catheter: Urinary Catheter: patent and draining and urine clear Objective Data Vital Signs Vital Signs: Vital Signs - 24 hr 04/27/22 09:13 04/27/22 10:36 04/27/22 11:03 Temperature 98.1 F Pulse Rate 96 91 95 Respiratory Rate 18 22 H 22 H Blood Pressure 124/54 L 113/60 110/70 Pulse Oximetry 99 100 100 Oxygen Delivery Room Air Fraction of Inspired Oxygen 04/27/22 11:30 04/27/22 12:30 04/27/22 13:38 Temperature 98.6 F Pulse Rate 88 89 89 Respiratory Rate 22 H 25 H 20 Blood Pressure 110/68 104/59 L 110/54 L Pulse Oximetry 98 100 100 Oxygen Delivery Fraction of Inspired Oxygen 04/27/22 13:55 04/27/22 12:31 04/27/22 14:58 Temperature 97 F L 98.9 F Pulse Rate 92 88 88 Respiratory Rate 20 26 H 20 Blood Pressure 109/57 L 104/59 L 119/56 L Pulse Oximetry 100 97 100 Oxygen Delivery Fraction of Inspired Oxygen 04/27/22 17:59 04/27/22 18:13 04/27/22 17:44 Temperature 100.4 F H 99.3 F 99.3 F Pulse Rate 97 99 99 Respiratory Rate 24 H 24 H 24 H Blood Pressure 126/62 129/60 129/60 Pulse Oximetry 99 100 100 Oxygen Delivery Fraction of Inspired Oxygen 04/27/22 19:08 04/27/22 19:11 04/27/22 19:28 Temperature 100.0 F H 100 F H Pulse Rate 97 97 Respiratory Rate 20 20 Blood Pressure 120/64 120/64 Pulse Oximetry 99 99 99 Oxygen Delivery Room Air Fraction of Inspired Oxygen 2 04/27/22 19:13 04/27/22 20:12 04/27/22 21:10 Temperature 100 F H 98.7 F 98.9 F Pulse Rate 97 91 93 Respiratory Rate 20 18 22 H Blood Pressure 120/64 114/59 L 116/62 Pulse Oximetry 99 96 94 Oxygen Delivery Fraction of Inspired Oxygen 04/27/22 20:00 04/28/22 03:06 Temperature 98.5 F Pulse Rate 93 96 Respiratory Rate 22 H 20 Blood Pressure 109/52 L Pulse Oximetry 94 96 Oxygen Delivery Room Air Fraction of Inspired Oxygen 2 Intake/Output Intake/Output: Intake & Output 04/25/22 04/26/22 04/27/22 04/28/22 23:59 23:59 23:59 23:59 Intake Total 1630 100 Output Total 2250 200 Balance -620 -100 Meds/Results Medications: Active Medications Generic Name Dose Route Start Last Admin Trade Name Donq PRN Reason Stop Dose Admin Amlodipine Besylate 5 mg 04/28/22 09:00 Amlodipine Besylate 5 Mg Tablet PO DAILY [facility] Atorvastatin Calcium 20 mg 04/28/22 09:00 Atorvastatin 20 Mg Tablet PO DAILY [facility] Ferrous Sulfate 324 mg 04/28/22 08:00 Ferrous Sulfate 324 Mg Tablet PO DAILY@0800 [facility] Fish
[2022-04-28] MEDS: OMEGA 3 POLYUNSAT FATTY ACIDS 1 GM CAP PO (08:30)
[2022-04-28] MEDS: amLODIPine BESYLATE 5 MG TABLET PO (08:30)
[2022-04-28] MEDS: CHOLECALCIFEROL 1,000 UNITS TABLET 1000 UNITS PO (08:30)
[2022-04-28] MEDS: lisinopriL 10 MG TABLET BY MOUTH (08:30)
[2022-04-28] MEDS: FERROUS SULFATE 324 MG TABLET PO (08:30)
[2022-04-28] MEDS: ATORVASTATIN 20 MG TABLET PO (08:31)
[2022-04-28] MEDS: PANTOPRAZOLE SODIUM IV 40 MG VIAL IV PUSH ×2 (08:31→21:01)
[2022-04-28 10:06] LABS: Hematocrit 26.1 % (42.0-52.0); Hemoglobin 7.5 g/dL (14.0-18.0)
--- NOTE | 2022-04-28 13:45 | PM.IMPN ---
Progress Note: A&P Assessment and Plan (1) Kidney mass: Code(s): N28.89 - Other specified disorders of kidney and ureter Status: Acute Assessment and Plan: CT of the abdomen showed 2.0cm mass in the right kidney, looking to be a possible cyst Renal ultrasound found bilateral renal cysts, no solid masses to suggest malignancy Urology consulted thank you for your recommendations Need a CT with and without contrast (2) Anemia: Code(s): D64.9 - Anemia, unspecified Status: Acute Assessment and Plan: H/H at admission was 6.4/23.9, current 7.5/26.0 Two unit of PRBC given Anemia studies indicate iron deficiency anemia Iron supplementations added GI consulted Continue to trend H/H Transfuse for a HGB <7.0 (3) COPD (chronic obstructive pulmonary disease): Code(s): J44.9 - Chronic obstructive pulmonary disease, unspecified Status: Acute Assessment and Plan: CT showed emphysema Chronic use of supplemental oxygen at home of 2L Does not appear to be in acute exacerbation No home medications Adjust therapy as indicated (4) Mixed hyperlipidemia: Code(s): E78.2 - Mixed hyperlipidemia Status: Acute Assessment and Plan: continue [place] 3. Continue with a atorvastatin (5) Urinary retention due to benign prostatic hyperplasia: Code(s): N40.1 - Benign prostatic hyperplasia with lower urinary tract symptoms; R33.8 - Other retention of urine Status: Acute Assessment and Plan: Urinary catheter placed with 700ml out Possible cystoscope with stretching, has been deferred as an outpatient Will need voiding trial CT indicated moderately enlarged prostate Trend urine output Bladder scan PRN Voiding trial for Sunday Urology consulted (6) Abnormal finding on urinalysis: Code(s): R82.90 - Unspecified abnormal findings in urine Status: Acute Assessment and Plan: UA does show a possible infection with slight leukocyte esterase, WBC, and bacteria Could be from retention Ceftriaxone started in the ed Continue antibiotics for now Urine culture pending (7) Hypertension: Code(s): I10 - Essential (primary) hypertension Status: Acute Assessment and Plan: BP stable at 109/52 Trend BP Continue home lisinopril Adjust therapy as indicated (8) Sepsis: Code(s): A41.9 - Sepsis, unspecified organism Status: Acute Assessment and Plan: Sirs criteria met with fever of 100.4, tachypnea of 22-24, leukocytosis of 17 at admission Source of infection could be urinary in nature WBC currently 12.5 QSofa score of 1 For tachypnea Trend labs Blood cultures pending Urine cultures pending Continue ceftriaxone for now Lactic acid normal Recently treated for gastritis Time Spent With Patient Time with patient: Greater than 35 minutes Subjective Date/time seen: 04/28/221344 Interval history: 04/28/221344 Patient seems to be doing well today. Patient has no complaints of chest pain, nausea, vomiting, diarrhea, constipation, weakness or fatigue. Patient was under the impression that he was having a cystoscopy today however it looks like it has been deferred due to some of the other problems the patient is having. Patient will need to have a voiding trial on Sunday and continue the Flomax for now. Patient does appear to be short of breath and states that he is short of breath it could be from the 2 units packed red blood cells that he got he is also exhibiting 2+ pitting edema On the right and 4+ pitting edema on the left. 04/27/22? 13:02 This is an 81-year-old male patient who has a history of iron deficiency anemia.? The patient has been having urinary retention for the last 3 days.? The patient stated that he is only dribbling and is not having a n
--- NOTE | 2022-04-28 13:45 | P.PNIM_ITS ---
Progress Note: A&P Assessment and Plan (1) Kidney mass: Code(s): N28.89 - Other specified disorders of kidney and ureter Status: Acute Assessment and Plan: * CT of the abdomen showed 2.0cm mass in the right kidney, looking to be a possible cyst * Renal ultrasound found bilateral renal cysts, no solid masses to suggest malignancy * Urology consulted thank you for your recommendations * Need a CT with and without contrast (2) Anemia: Code(s): D64.9 - Anemia, unspecified Status: Acute Assessment and Plan: * H/H at admission was 6.4/23.9, current 7.5/26.0 * Two unit of PRBC given * Anemia studies indicate iron deficiency anemia * Iron supplementations added * GI consulted * Continue to trend H/H * Transfuse for a HGB <7.0 (3) COPD (chronic obstructive pulmonary disease): Code(s): J44.9 - Chronic obstructive pulmonary disease, unspecified Status: Acute Assessment and Plan: * CT showed emphysema * Chronic use of supplemental oxygen at home of 2L * Does not appear to be in acute exacerbation * No home medications * Adjust therapy as indicated (4) Mixed hyperlipidemia: Code(s): E78.2 - Mixed hyperlipidemia Status: Acute Assessment and Plan: * continue [place] 3. * Continue with a atorvastatin (5) Urinary retention due to benign prostatic hyperplasia: Code(s): N40.1 - Benign prostatic hyperplasia with lower urinary tract symptoms; R33.8 - Other retention of urine Status: Acute Assessment and Plan: * Urinary catheter placed with 700ml out * Possible cystoscope with stretching, has been deferred as an outpatient * Will need voiding trial * CT indicated moderately enlarged prostate * Trend urine output * Bladder scan PRN * Voiding trial for Sunday * Urology consulted (6) Abnormal finding on urinalysis: Code(s): R82.90 - Unspecified abnormal findings in urine Status: Acute Assessment and Plan: * UA does show a possible infection with slight leukocyte esterase, WBC, and bacteria * Could be from retention * Ceftriaxone started in the ed * Continue antibiotics for now * Urine culture pending (7) Hypertension: Code(s): I10 - Essential (primary) hypertension Status: Acute Assessment and Plan: * BP stable at 109/52 * Trend BP * Continue home lisinopril * Adjust therapy as indicated (8) Sepsis: Code(s): A41.9 - Sepsis, unspecified organism Status: Acute Assessment and Plan: * Sirs criteria met with fever of 100.4, tachypnea of 22-24, leukocytosis of 17 at admission * Source of infection could be urinary in nature * WBC currently 12.5 * QSofa score of 1 For tachypnea * Trend labs * Blood cultures pending * Urine cultures pending * Continue ceftriaxone for now * Lactic acid normal * Recently treated for gastritis Time Spent With Patient Time with patient: Greater than 35 minutes Subjective Date/time seen: 04/28/221344 Interval history: 04/28/221344 Patient seems to be doing well today. Patient has no complaints of chest pain, nausea, vomiting, diarrhea, constipation, weakness or fatigue. Patient was under the impression that he wa
[2022-04-28 14:00] VITALS: BP 108/54; PULSE 87; RESP 20; TEMP 37.1; O2SAT 99
[2022-04-28] MEDS: FUROSEMIDE INJ 40 MG/4 ML VIAL IV PUSH (14:19)
--- NOTE | 2022-04-28 14:42 | PC.NURSE ---
patient had BM but missed the specimen container, unable to get stool sample. will attempt again.
--- NOTE | 2022-04-28 15:48 | PDONCCN ---
HPI - Date of Consult Date/Time: 04/28/22 15:48 Requesting Physician: Mago Hannon MD Primary Care Provider: Iam Sabillon DO - Consult Narrative Reason for consult: Microcytic anemia Narrative: Pranay Casanova is a 81 year old male with history of recurrent iron deficiency anemia, COPD, hypertension and coronary artery disease came into the hospital with complain of urinary retention for 3 days duration. He denies any melena hematochezia. Denies any hematuria. He was diagnosed with UTI and was started on Rocephin. Labs showed hemoglobin of 6.4. Patient received blood transfusion. He has been taking oral iron at home. Patient had EGD and colonoscopy done on March 14 that showed diverticulosis without any bleeding and gastritis and duodenitis. GI service saw the patient. He complains of tiredness and fatigue. Denies any recent weight loss. 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 COPD (chronic obstructive pulmonary disease) Diastolic heart failure Echocardiogram April 2016: Normal ejection fraction of 65%, grade 2 diastolic dysfunction Hyperlipidemia Hypertension Kidney stones Surgical History: Surgical History (Last Reviewed 04/28/22 @ 09:45 by Pranay Campos MD) H/O cataract extraction History of heart artery stent Onset Date: ~2010 History of hernia repair Right inguinal hernia repair x2 with most recent repair July 2015 History of partial thyroidectomy Onset Date: ~01/2011 History of tonsillectomy Family History: Family History (Last Reviewed 04/28/22 @ 09:45 by Pranay Campos MD) Mother Heart disease Father Heart disease Melanoma - Social History Social History: Social History (Last Reviewed 04/28/22 @ 09:45 by Pranay Campos MD) Gender Identity: Gender identity (if verbalized by the patient): Male Sexual Orientation: Sexual Orientation (if Verbalized by the Patient): Straight or Heterosexual Alcohol Use: Alcohol intake: never Substance Use: Substance use: never Others: Spiritual care concerns: No Smoking Status: Smoking status: Former smoker Second hand tobacco smoke exposure: No Approximate Smoking End Date: 1994 Smoking Pack-years: Smoking packs per day: 1 Smoking cigarettes per day: 20.0 Years smoked: 20 Smoking pack-years: 20.00 Exam - Vital Signs Vital Signs - 24 hr 04/27/22 17:59 04/27/22 18:13 04/27/22 17:44 Temperature 38.0 C H 37.4 C 37.4 C Pulse Rate 97 99 99 Respiratory Rate 24 H 24 H 24 H Blood Pressure 126/62 129/60 129/60 Pulse Oximetry 99 100 100 Oxygen Delivery Oxygen Flow Rate Fraction of Inspired Oxygen 04/27/22 19:08 04/27/22 19:11 04/27/22 19:28 Temperature 37.8 C H 37.7 C H Pulse Rate 97 97 Respiratory Rate 20 20 Blood Pressure 120/64 120/64 Pulse Oximetry 99 99 99 Oxygen Delivery Room Air Oxygen Flow Rate Fraction of Inspired Oxygen 2 04/27/22 19:13 04/27/22 20:12 04/27/22 21:10 Temperature 37.7 C H 37.1 C 37.2 C Pulse Rate 97 91 93 Respiratory Rate 20 18 22 H Blood Pressure 120/64 114/59 L 116/62 Pulse Oximetry 99 96 94 Oxygen Delivery Oxygen Flow Rate Fraction of Inspired Oxygen 04/27/22 20:00 04/28/22 03:06 04/28/22 08:00 Temperature 36.9 C Pulse Rate 93 96 Respiratory Rate 22 H 20 Blood Pressure 109/52 L Pulse Oximetry 94 96 97 Oxygen Delivery Room Air Nasal Cannula Oxygen Flow Rate 2 Fraction of Inspired Oxygen 2 04/28/22 14:00 Temperature 37.1 C Pulse Rate 87 Respiratory Rate 20 Blood Pressure 108/54 L
[2022-04-28 19:10] VITALS: BP 131/69; PULSE 92; RESP 20; TEMP 37.2; O2SAT 97
[2022-04-28 19:23] LABS: IFOB Positive Control Positive; Immunochemical Fecal Occult Bl Negative (N)
[2022-04-28] MEDS: TAMSULOSIN HCL 0.4 MG CAPSULE PO (21:01)
[2022-04-28 21:24] VITALS: O2SAT 97
[2022-04-28] MEDS: MELATONIN 5 MG TABLET PO (22:34)
[2022-04-29 03:01] VITALS: BP 99/55; PULSE 90; RESP 22; TEMP 36.3; O2SAT 98
[2022-04-29 03:39] VITALS: BP 115/55
[2022-04-29 05:07] LABS: Basophils Absolute Auto 0.1 K/mm3 (0.0-0.1); Basophils Percent Auto 0.6 % (0.2-1.2); Eosinophils Absolute Auto 0.3 K/mm3 (0-0.3); Eosinophils Percent Auto 2.9 % (0-4.4); Hematocrit 26.4 % (42.0-52.0); Hemoglobin 7.3 g/dL (14.0-18.0); Immature Granulocyte Absolute 0.05 K/mm3 (0.00-0.031); Immature Granulocyte Percent A 0.5 % (0-0.5); Immature Platelet Fraction Pct 5.1 % (0.9-11.2); Lymphocytes Absolute Auto 1.03 K/mm3 (0.9-3.2); Lymphocytes Percent Auto 10.6 % (18.3-44.2); Mean Corpuscular HGB Conc 27.7 g/dl (32-36); Mean Corpuscular Hemoglobin 18.7 pg (26-34); Mean Corpuscular Volume 67.7 fl (80-100); Monocytes Absolute Auto 1.3 K/mm3 (0.1-0.6); Monocytes Percent Auto 13.8 % (2.6-8.5); Neutrophils Percent Auto 71.6 % (45.5-73.1); Platelet Count Result 222 k/mm3 (150-375); Red Cell Distribution Width 24.4 % (11.5-14.5); White Blood Count 9.7 K/mm3 (4.5-10.0)
[2022-04-29 05:25] LABS: Alanine Aminotransferase 15 U/L (6-50); Alkaline Phosphatase 68 U/L (38-126); Anion Gap 7 mmol/L (8-16); Aspartate Amino Transferase 22 U/L (17-59); Bilirubin,Total 0.5 mg/dL (0.2-1.3); Blood Urea Nitrogen 13 mg/dL (9-20); Calcium 8.1 mg/dL (8.4-10.2); Carbon Dioxide 24 mmol/L (22-30); Chloride 101 mmol/L (98-107); Estimated CRCL calculation 52 ml/min; Estimated Glomerular Filt Rate > 60; Glucose 94 mg/dL (65-110); Magnesium 2.1 mg/dL (1.6-2.3); Potassium 3.4 mmol/L (3.4-5.0); Sodium 132 mmol/L (137-145)
[2022-04-29 06:03] LABS: Microcytosis 2+ (NORMAL); Platelet Estimate Adequate (Adequate)
[2022-04-29 06:04] LABS: Anisocytosis 3+ (NORMAL); Burr Cells 2+ (NORMAL); Hypochromasia 3+ (NORMAL); Ovalocytes 1+ (NORMAL); Schistocytes None Seen (NORMAL)
[2022-04-29 08:00] VITALS: O2SAT 96
[2022-04-29] MEDS: ATORVASTATIN 20 MG TABLET PO (08:35)
[2022-04-29] MEDS: OMEGA 3 POLYUNSAT FATTY ACIDS 1 GM CAP PO (08:35)
[2022-04-29] MEDS: CHOLECALCIFEROL 1,000 UNITS TABLET 1000 UNITS PO (08:35)
[2022-04-29] MEDS: amLODIPine BESYLATE 5 MG TABLET PO (08:35)
[2022-04-29] MEDS: lisinopriL 10 MG TABLET BY MOUTH (08:35)
[2022-04-29] MEDS: FERROUS SULFATE 324 MG TABLET PO (08:35)
[2022-04-29] MEDS: PANTOPRAZOLE SODIUM IV 40 MG VIAL IV PUSH ×2 (08:36→20:21)
[2022-04-29] MEDS: IRON SUCROSE COMPLEX 500 MG in SODIUM CHLORIDE 0.9% IV 250 ML 78.57 MG IVPB (08:36)
--- NOTE | 2022-04-29 11:15 | P.PNIM_ITS ---
Progress Note: A&P Assessment and Plan (1) Kidney mass: Code(s): N28.89 - Other specified disorders of kidney and ureter Status: Acute Assessment and Plan: * CT of the abdomen showed 2.0cm mass in the right kidney, looking to be a possible cyst * Renal ultrasound found bilateral renal cysts, no solid masses to suggest malignancy * Urology consulted thank you for your recommendations * Need a CT with and without contrast * Refer outpatient (2) Anemia: Code(s): D64.9 - Anemia, unspecified Status: Acute Assessment and Plan: * H/H at admission was 6.4/23.9, current 7.3/26.4 * Two unit of PRBC given 04/28/22 * Anemia studies indicate iron deficiency anemia * Iron supplementations added * iron infusion x3 days * GI consulted * Continue to trend H/H * Transfuse for a HGB <7.0 * Oncology consulted, outpatient follow up recommended for PRN iron infusions (3) COPD (chronic obstructive pulmonary disease): Code(s): J44.9 - Chronic obstructive pulmonary disease, unspecified Status: Acute Assessment and Plan: * CT showed emphysema * Chronic use of supplemental oxygen at home of 2L * Does not appear to be in acute exacerbation * No home medications * Adjust therapy as indicated (4) Mixed hyperlipidemia: Code(s): E78.2 - Mixed hyperlipidemia Status: Acute Assessment and Plan: * continue [place] 3. * Continue with a atorvastatin (5) Urinary retention due to benign prostatic hyperplasia: Code(s): N40.1 - Benign prostatic hyperplasia with lower urinary tract symptoms; R33.8 - Other retention of urine Status: Acute Assessment and Plan: * Urinary catheter placed with 700ml out * Possible cystoscope with stretching, has been deferred as an outpatient * voiding trial to take place in the am * CT indicated moderately enlarged prostate * Trend urine output * Bladder scan PRN * Voiding trial for Sunday * Urology consulted (6) Abnormal finding on urinalysis: Code(s): R82.90 - Unspecified abnormal findings in urine Status: Acute Assessment and Plan: * UA does show a possible infection with slight leukocyte esterase, WBC, and ba cteria * Could be from retention * Ceftriaxone discontinued * Urine culture No growth (7) Hypertension: Code(s): I10 - Essential (primary) hypertension Status: Acute Assessment and Plan: * BP stable at 115/55 * Trend BP * Continue home lisinopril * Adjust therapy as indicated (8) Sepsis: Code(s): A41.9 - Sepsis, unspecified organism Status: Acute Assessment and Plan: * Seems resolved * Sirs criteria met with fever of 100.4, tachypnea of 22-24, leukocytosis of 17 at admission * Source of infection could be urinary in nature * WBC currently 9.7 * QSofa score of 1 For tachypnea * Trend labs * Blood cultures NGTD * Urine cultures No growth * Discontinue antibiotics for now * Lactic acid normal * Recently treated for gastritis Time Spent With Patient Time with patient: Greater than 35 minutes Subjective Date/time seen: 04/29/22 111 Interval history: 04/29/221114 Patient is doing ok. Shortness of breath seems to be
--- NOTE | 2022-04-29 11:15 | PM.IMPN ---
Progress Note: A&P Assessment and Plan (1) Kidney mass: Code(s): N28.89 - Other specified disorders of kidney and ureter Status: Acute Assessment and Plan: CT of the abdomen showed 2.0cm mass in the right kidney, looking to be a possible cyst Renal ultrasound found bilateral renal cysts, no solid masses to suggest malignancy Urology consulted thank you for your recommendations Need a CT with and without contrast Refer outpatient (2) Anemia: Code(s): D64.9 - Anemia, unspecified Status: Acute Assessment and Plan: H/H at admission was 6.4/23.9, current 7.3/26.4 Two unit of PRBC given 04/28/22 Anemia studies indicate iron deficiency anemia Iron supplementations added iron infusion x3 days GI consulted Continue to trend H/H Transfuse for a HGB <7.0 Oncology consulted, outpatient follow up recommended for PRN iron infusions (3) COPD (chronic obstructive pulmonary disease): Code(s): J44.9 - Chronic obstructive pulmonary disease, unspecified Status: Acute Assessment and Plan: CT showed emphysema Chronic use of supplemental oxygen at home of 2L Does not appear to be in acute exacerbation No home medications Adjust therapy as indicated (4) Mixed hyperlipidemia: Code(s): E78.2 - Mixed hyperlipidemia Status: Acute Assessment and Plan: continue [place] 3. Continue with a atorvastatin (5) Urinary retention due to benign prostatic hyperplasia: Code(s): N40.1 - Benign prostatic hyperplasia with lower urinary tract symptoms; R33.8 - Other retention of urine Status: Acute Assessment and Plan: Urinary catheter placed with 700ml out Possible cystoscope with stretching, has been deferred as an outpatient voiding trial to take place in the am CT indicated moderately enlarged prostate Trend urine output Bladder scan PRN Voiding trial for Sunday Urology consulted (6) Abnormal finding on urinalysis: Code(s): R82.90 - Unspecified abnormal findings in urine Status: Acute Assessment and Plan: UA does show a possible infection with slight leukocyte esterase, WBC, and bacteria Could be from retention Ceftriaxone discontinued Urine culture No growth (7) Hypertension: Code(s): I10 - Essential (primary) hypertension Status: Acute Assessment and Plan: BP stable at 115/55 Trend BP Continue home lisinopril Adjust therapy as indicated (8) Sepsis: Code(s): A41.9 - Sepsis, unspecified organism Status: Acute Assessment and Plan: Seems resolved Sirs criteria met with fever of 100.4, tachypnea of 22-24, leukocytosis of 17 at admission Source of infection could be urinary in nature WBC currently 9.7 QSofa score of 1 For tachypnea Trend labs Blood cultures NGTD Urine cultures No growth Discontinue antibiotics for now Lactic acid normal Recently treated for gastritis Time Spent With Patient Time with patient: Greater than 35 minutes Subjective Date/time seen: 04/29/22 111 Interval history: 04/29/22 111 Patient is doing ok. Shortness of breath seems to be better. No complaints of chest pain, weakness, fatigue, nausea, vomiting, diarrhea, constipation . Void trial for in the am. 04/28/22 1345 Patient seems to be doing well today. Patient has no complaints of chest pain, nausea, vomiting, diarrhea, constipation, weakness or fatigue. Patient was under the impression that he was having a cystoscopy today however it looks like it has been deferred due to some of the other problems the patient is having. Patient will need to have a voiding trial on Sunday and continue the Flomax for now. Patient does appear to be short of breath and states that he is short of breath it could be from the 2 units packed red blood cells that he g
[2022-04-29 14:24] VITALS: BP 90/53; PULSE 93; RESP 18; TEMP 36.3; O2SAT 98
[2022-04-29 19:06] VITALS: BP 109/59; PULSE 80; RESP 18; TEMP 36.6; O2SAT 98
[2022-04-29 19:47] VITALS: O2SAT 98
[2022-04-29] MEDS: TAMSULOSIN HCL 0.4 MG CAPSULE PO (20:21)
[2022-04-29] MEDS: MELATONIN 5 MG TABLET PO (20:21)
[2022-04-30 03:30] VITALS: BP 102/40; PULSE 86; RESP 16; TEMP 36.4; O2SAT 94
[2022-04-30 05:42] LABS: Basophils Absolute Auto 0.1 K/mm3 (0.0-0.1); Basophils Percent Auto 1.3 % (0.2-1.2); Eosinophils Absolute Auto 0.9 K/mm3 (0-0.3); Eosinophils Percent Auto 10.8 % (0-4.4); Hematocrit 27.5 % (42.0-52.0); Hemoglobin 7.6 g/dL (14.0-18.0); Immature Granulocyte Absolute 0.04 K/mm3 (0.00-0.031); Immature Granulocyte Percent A 0.5 % (0-0.5); Immature Platelet Fraction Pct 3.6 % (0.9-11.2); Lymphocytes Percent Auto 12.7 % (18.3-44.2); Mean Corpuscular HGB Conc 27.6 g/dl (32-36); Mean Corpuscular Hemoglobin 18.8 pg (26-34); Mean Corpuscular Volume 67.9 fl (80-100); Mean Platelet Volume 9.9 fl (7.4-10.4); Monocytes Absolute Auto 1.2 K/mm3 (0.1-0.6); Monocytes Percent Auto 14.9 % (2.6-8.5); Neutrophils Absolute Auto 4.7 K/mm3 (1.3-6.7); Neutrophils Percent Auto 59.8 % (45.5-73.1); Platelet Count Result 283 k/mm3 (150-375); Red Blood Count 4.05 M/mm3 (4.6-6.20); Red Cell Distribution Width 24.5 % (11.5-14.5); White Blood Count 7.9 K/mm3 (4.5-10.0)
[2022-04-30 06:42] LABS: Hypochromasia 2+ (NORMAL); Platelet Estimate Adequate (Adequate)
[2022-04-30 06:43] LABS: Anisocytosis 2+ (NORMAL); Burr Cells 1+ (NORMAL); Microcytosis 2+ (NORMAL); Ovalocytes 2+ (NORMAL); Schistocytes 1+ (NORMAL)
[2022-04-30 08:00] VITALS: O2SAT 94
[2022-04-30] MEDS: PANTOPRAZOLE SODIUM IV 40 MG VIAL IV PUSH (08:25)
[2022-04-30] MEDS: FERROUS SULFATE 324 MG TABLET PO (08:25)
[2022-04-30] MEDS: CHOLECALCIFEROL 1,000 UNITS TABLET 1000 UNITS PO (08:25)
[2022-04-30] MEDS: lisinopriL 10 MG TABLET BY MOUTH (08:25)
[2022-04-30] MEDS: OMEGA 3 POLYUNSAT FATTY ACIDS 1 GM CAP PO (08:26)
[2022-04-30] MEDS: IRON SUCROSE COMPLEX 500 MG in SODIUM CHLORIDE 0.9% IV 250 ML 78.5 MG IVPB (08:26)
[2022-04-30] MEDS: ATORVASTATIN 20 MG TABLET PO (08:26)
--- NOTE | 2022-04-30 08:47 | WPDUROPN2 ---
Progress Note: A&P Assessment and Plan (1) Urinary retention due to benign prostatic hyperplasia: Code(s): N40.1 - Benign prostatic hyperplasia with lower urinary tract symptoms; R33.8 - Other retention of urine Status: Acute (2) Kidney mass: Code(s): N28.89 - Other specified disorders of kidney and ureter Status: Acute Subjective Subjective Date/Time Seen: 04/30/22 08:47 Objective Data Vital Signs Vital Signs: Vital Signs - 24 hr 04/29/22 14:24 04/29/22 19:06 04/29/22 19:47 Temperature 36.3 C L 36.6 C Pulse Rate 93 80 Respiratory Rate 18 18 Blood Pressure 90/53 L 109/59 L Pulse Oximetry 98 98 98 Oxygen Delivery Nasal Cannula Oxygen Flow Rate 2 04/30/22 03:30 Temperature 36.4 C Pulse Rate 86 Respiratory Rate 16 Blood Pressure 102/40 L Pulse Oximetry 94 Oxygen Delivery Oxygen Flow Rate Intake/Output Intake/Output: Intake & Output 04/27/22 04/28/22 04/29/22 04/30/22 23:59 23:59 23:59 23:59 Intake Total 1630 1660 1795 200 Output Total 2250 2400 2150 1200 Balance -620 -740 -355 -1000 Meds/Results Medications: Active Medications Generic Name Dose Route Start Last Admin Trade Name Pipo PRN Reason Stop Dose Admin Atorvastatin Calcium 20 mg 04/28/22 09:00 04/30/22 08:26 Atorvastatin 20 Mg Tablet PO 20 mg DAILY EDMOND Administration Ferrous Sulfate 324 mg 04/28/22 08:00 04/30/22 08:25 Ferrous Sulfate 324 Mg Tablet PO 324 mg DAILY@0800 EDMOND Administration Fish Oil 1 gm 04/28/22 09:00 04/30/22 08:26 [place] 3 Polyunsat Fatty Acids 1 Gm Cap PO 1 gm DAILY EDMOND Administration Iron Sucrose 500 mg/ Sodium 275 mls @ 78.571 mls/hr 04/29/22 09:00 04/30/22 08:26 Chloride IVPB 05/01/22 08:59 78.5 mls/hr QAM EDMOND Administration Lisinopril 10 mg 04/28/22 09:00 04/30/22 08:25 Lisinopril 10 Mg Tablet BY MOUTH 10 mg DAILY EDMOND Administration Melatonin 5 mg 04/28/22 22:25 04/29/22 20:21 Melatonin 5 Mg Tablet PO 5 mg HS EDMOND Administration Pantoprazole Sodium 40 mg 04/27/22 21:00 04/30/22 08:25 Pantoprazole Sodium Iv 40 Mg Vial IV PUSH 40 mg Q12HR EDMOND Administration Tamsulosin HCl 0.4 mg 04/27/22 21:00 04/29/22 20:21 Tamsulosin Hcl 0.4 Mg Capsule PO 0.4 mg QHS EDMOND Administration Vitamin D 1,000 units 04/28/22 09:00 04/30/22 08:25 Cholecalciferol 1,000 Units Tablet PO 1,000 units DAILY EDMOND Administration Radiology Results: ITS Impressions Abdomen/Pelvis CT 04/27/22 11:01 IMPRESSION: 1. 2.0 cm right kidney mass, which may be a hemorrhagic cyst or less likely a neoplasm. Abdomen CT without and with contrast is recommended. 2. Emphysema. Renal Ultrasound 04/27/22 17:11 Impression: 1: Bilateral renal cysts. No solid masses are identified to suggest malignancy. Labs Labs: Laboratory Results - last 24 hr 04/30/22 05:06 WBC 7.9 RBC 4.05 L Hgb 7.6 L Hct 27.5 L MCV 67.9 L MCH 18.8 L MCHC 27.6 L RDW 24.5 H Plt Count 283 MPV 9.9 Immature Gran % (Auto) 0.5 Neut % (Auto) 59.8 Lymph % (Auto) 12.7 L Vance % (Auto) 14.9 H Eos % (Auto) 10.8 H Baso % (Auto) 1.3 H Lymph # (Auto) 1.00 Vance # (Auto) 1.2 H Eos # (Auto) 0.9 H Baso # (Auto) 0.1 Abs Immat Gran (auto) 0.04 H Absolute Neuts (auto) 4.7 Absolute Nucleated RBC 0.0 Nucleated RBC % 0.0 Platelet Estimate Adequate % Immature Plt Fraction 3.6 Hypochromasia 2+ Anisocytosis 2+ Microcytosis 2+ Ovalocytes 2+ Arsh Cells 1+ Schistocytes 1+
--- NOTE | 2022-04-30 12:00 | P.DS_ITS ---
DS: Admitting Diagnosis Discharge Date 04/30/22 1200 Admitting Diagnosis anemia, urinary retention, BPH DS: Discharge Diagnosis Discharge Diagnosis (1) Kidney mass: Code(s): N28.89 - Other specified disorders of kidney and ureter Status: Acute Assessment and Plan: * CT of the abdomen showed 2.0cm mass in the right kidney, looking to be a possible cyst * Renal ultrasound found bilateral renal cysts, no solid masses to suggest malignancy * Urology consulted thank you for your recommendations * CT with and without contrast of the abdomen indicate masses that are most likely cysts * Refer outpatient (2) Anemia: Code(s): D64.9 - Anemia, unspecified Status: Acute Assessment and Plan: * H/H at admission was 6.4/23.9, current 7.6/27.5 * Two unit of PRBC given 04/28/22 * Anemia studies indicate iron deficiency anemia * Iron supplementations added * iron infusion x3 days, will only get a total of two, but will be able to follow up with oncology outpatient * GI consulted * Continue to trend H/H * Transfuse for a HGB <7.0 * Oncology consulted, outpatient follow up recommended for PRN iron infusions (3) COPD (chronic obstructive pulmonary disease): Code(s): J44.9 - Chronic obstructive pulmonary disease, unspecified Status: Acute Assessment and Plan: * CT showed emphysema * Chronic use of supplemental oxygen at home of 2L * Does not appear to be in acute exacerbation * No home medications * Adjust therapy as indicated (4) Mixed hyperlipidemia: Code(s): E78.2 - Mixed hyperlipidemia Status: Acute Assessment and Plan: * continue [place] 3. * Continue with a atorvastatin (5) Urinary retention due to benign prostatic hyperplasia: Code(s): N40.1 - Benign prostatic hyperplasia with lower urinary tract symptoms; R33.8 - Other retention of urine Status: Acute Assessment and Plan: * Urinary catheter placed with 700ml out * Possible cystoscope with stretching, has been deferred as an outpatient * voiding trial to take place in the am * CT indicated moderately enlarged prostate * Trend urine output * Bladder scan PRN * Urology consulted (6) Abnormal finding on urinalysis: Code(s): R82.90 - Unspecified abnormal findings in urine Status: Acute Assessment and Plan: * UA does show a possible infection with slight leukocyte esterase, WBC, and bacteria * Could be from retention * Ceftriaxone discontinued * Urine culture No growth (7) Hypertension: Code(s): I10 - Essential (primary) hypertension Status: Acute Assessment and Plan: * BP stable at 102/40 * Trend BP * Continue home lisinopril, stop amlodipine as he is having some softer blood pressures * Adjust therapy as indicated (8) Sepsis: Code(s): A41.9 - Sepsis, unspecified organism Status: Acute Assessment and Plan: * Seems resolved * Sirs criteria met with fever of 100.4, tachypnea of 22-24, leukocytosis of 17 at admission * Source of infection could be urinary in nature * WBC currently 9.7 * QSofa score of 1 For tachypnea * Trend labs * Blood cultures NGTD * Urine cultures No growth * Discontinue antibiotics for now * Lactic acid normal * Recen
--- NOTE | 2022-04-30 12:00 | PM.DS ---
DS: Admitting Diagnosis Discharge Date 04/30/22 1200 Admitting Diagnosis anemia, urinary retention, BPH DS: Discharge Diagnosis Discharge Diagnosis (1) Kidney mass: Code(s): N28.89 - Other specified disorders of kidney and ureter Status: Acute Assessment and Plan: CT of the abdomen showed 2.0cm mass in the right kidney, looking to be a possible cyst Renal ultrasound found bilateral renal cysts, no solid masses to suggest malignancy Urology consulted thank you for your recommendations CT with and without contrast of the abdomen indicate masses that are most likely cysts Refer outpatient (2) Anemia: Code(s): D64.9 - Anemia, unspecified Status: Acute Assessment and Plan: H/H at admission was 6.4/23.9, current 7.6/27.5 Two unit of PRBC given 04/28/22 Anemia studies indicate iron deficiency anemia Iron supplementations added iron infusion x3 days, will only get a total of two, but will be able to follow up with oncology outpatient GI consulted Continue to trend H/H Transfuse for a HGB <7.0 Oncology consulted, outpatient follow up recommended for PRN iron infusions (3) COPD (chronic obstructive pulmonary disease): Code(s): J44.9 - Chronic obstructive pulmonary disease, unspecified Status: Acute Assessment and Plan: CT showed emphysema Chronic use of supplemental oxygen at home of 2L Does not appear to be in acute exacerbation No home medications Adjust therapy as indicated (4) Mixed hyperlipidemia: Code(s): E78.2 - Mixed hyperlipidemia Status: Acute Assessment and Plan: continue [place] 3. Continue with a atorvastatin (5) Urinary retention due to benign prostatic hyperplasia: Code(s): N40.1 - Benign prostatic hyperplasia with lower urinary tract symptoms; R33.8 - Other retention of urine Status: Acute Assessment and Plan: Urinary catheter placed with 700ml out Possible cystoscope with stretching, has been deferred as an outpatient voiding trial to take place in the am CT indicated moderately enlarged prostate Trend urine output Bladder scan PRN Urology consulted (6) Abnormal finding on urinalysis: Code(s): R82.90 - Unspecified abnormal findings in urine Status: Acute Assessment and Plan: UA does show a possible infection with slight leukocyte esterase, WBC, and bacteria Could be from retention Ceftriaxone discontinued Urine culture No growth (7) Hypertension: Code(s): I10 - Essential (primary) hypertension Status: Acute Assessment and Plan: BP stable at 102/40 Trend BP Continue home lisinopril, stop amlodipine as he is having some softer blood pressures Adjust therapy as indicated (8) Sepsis: Code(s): A41.9 - Sepsis, unspecified organism Status: Acute Assessment and Plan: Seems resolved Sirs criteria met with fever of 100.4, tachypnea of 22-24, leukocytosis of 17 at admission Source of infection could be urinary in nature WBC currently 9.7 QSofa score of 1 For tachypnea Trend labs Blood cultures NGTD Urine cultures No growth Discontinue antibiotics for now Lactic acid normal Recently treated for gastritis DS: Summary Hospital Course Hospital Course: Patient is a 1-year-old male with a past medical history of hypertension, COPD, heart failure who presented to the ED with complaints urinary retention. Patient stated that he was having hard time starting stream and urinary catheter was placed. Patient had 7 mL urine out when Bliss catheter was placed. Urology was consulted and started the patient Flomax. UA. Infectious and patient was started on IV antibiotics however urine culture came back as no growth. IV antibiotics were stopped at that time. Oncology was also consulted as the patient was anemic
[2022-04-30 15:12] LABS: Albumin 2.7 g/dL (3.8-4.8); Alpha 1 Globulin 0.5 g/dL (0.2-0.3); Alpha 2 Globulin 0.7 g/dL (0.5-0.9); Beta 1 Globulin 0.4 g/dL (0.4-0.6); Gamma Globulin 0.6 g/dL (0.8-1.7); Protein, Total 5.2 g/dL (6.1-8.1)
[2022-05-02 14:21] LABS: Haptoglobin 208 mg/dL (43-212)
[2022-05-02 15:58] LABS: Soluble Transferrin Receptor 5.15 mg/L (0.76-1.76)
[2022-05-02 23:03] LABS: Total Protein/Creatinine Ratio 1080 mg/g creat (25-148)
[2022-05-04 03:16] LABS: H pylori Ag Stool Detected (Not Detected)
== END 2022-04-30 15:10 | disposition home or self-care (01) ==
LOC: ANHED 14:31 → ANH2MED 04-28 10:04
PROVIDERS: Internal Medicine Gastroenterology; Nurse Practitioner; Physician Assistant; Admitting Provider Hospitalist; Emergency Provider Emergency Medicine; PCP Internal Medicine; Visit Provider Nurse Practitioner
DX: A41.9 Sepsis, unspecified organism (principal); N39.0 Urinary tract infection, site not specified; N28.89 Other specified disorders of kidney and ureter; D64.9 Anemia, unspecified; D50.0 Iron deficiency anemia secondary to blood loss (chronic); J44.9 Chronic obstructive pulmonary disease, unspecified; E78.2 Mixed hyperlipidemia; N40.1 Benign prostatic hyperplasia with lower urinary tract symptoms; I11.0 Hypertensive heart disease with heart failure; I50.30 Unspecified diastolic (congestive) heart failure; R33.8 Other retention of urine; Z96.0 Presence of urogenital implants; R19.7 Diarrhea, unspecified; I25.10 Atherosclerotic heart disease of native coronary artery without angina pectoris; Z95.5 Presence of coronary angioplasty implant and graft; Z99.81 Dependence on supplemental oxygen; K29.70 Gastritis, unspecified, without bleeding; Z46.6 Encounter for fitting and adjustment of urinary device; Z87.891 Personal history of nicotine dependence; R06.02 Shortness of breath; J90 Pleural effusion, not elsewhere classified; R16.0 Hepatomegaly, not elsewhere classified; Z87.442 Personal history of urinary calculi; Z79.82 Long term (current) use of aspirin; Z79.899 Other long term (current) drug therapy
CPT/HCPCS: 36415; 36430; 51703; 74170; 74177; 76775; 80048; 80053; 81001; 82247; 82248; 82274; 82570; 82607; 82728; 82746; 83010; 83540; 83550; 83605; 83615; 83735; 84155; 84156; 84165; 84166; 84238; 84443; 84466; 85014; 85018; 85025; 85046; 85055; 85610; 85730; 86850; 86880; 86900; 86901; 86902; 86922; 87040; 87086; 87338; 96361; 96365; 96366; 96367; 96375; 96376; 99285; A9270; C9113; G0378; J0696; J1756; J1940; J7050; P9016; Q9967

== ENCOUNTER 2022-05-26 05:50 | Outpatient (CLI) | payer MEDICARE, SELFPAY ==
--- NOTE | 2022-05-26 06:43 | SUR.OPER ---
Patient brought to GI Lab. Instructions for patient undergoing Capsule Endoscopy reviewed with patient. Consent form signed. Sensor array applied to patient's abdomen and connected to recorded. Patient swallowed capsule with 2 cups of water infused with Simethicone. Patient instructed they may have clear liquids at 0830 this AM and eat or drink at 1030 this AM. Patient instructed to return to GI Lab at 1500 this afternoon for removal of recording device and to call [phone] or to return to the hospital if any nausea and vomiting or abdominal pain is experienced.
--- NOTE | 2022-05-26 14:56 | SUR.PHASEII ---
Patient returned to the GI Lab at 1500 for recorder box removal. Patient voiced no complaints. States they have understanding of instructions. Patient left ambulatory.
== END 2022-05-26 06:48 | disposition home or self-care (01) ==
PROVIDERS: PCP Internal Medicine; Visit Provider Internal Medicine Gastroenterology
PROC: 0DJ07ZZ Inspection of Upper Intestinal Tract, Via Natural or Artificial Opening (ICD-10-PCS; CPT 91110; principal; 2022-05-26 07:00)
DX: D50.9 Iron deficiency anemia, unspecified (principal)
CPT/HCPCS: 91110

== ENCOUNTER 2022-06-30 12:33 | Outpatient (CLI) | payer MEDICARE, SELFPAY ==
[2022-06-30 13:02] LABS: Basophils Absolute Auto 0.1 K/mm3 (0.0-0.1); Basophils Percent Auto 1.3 % (0.2-1.2); Eosinophils Absolute Auto 0.4 K/mm3 (0-0.3); Eosinophils Percent Auto 5.3 % (0-4.4); Hematocrit 43.7 % (42.0-52.0); Hemoglobin 13.4 g/dL (14.0-18.0); Immature Granulocyte Absolute 0.01 K/mm3 (0.00-0.031); Immature Granulocyte Percent A 0.1 % (0-0.5); Immature Platelet Fraction Pct 3.4 % (0.9-11.2); Lymphocytes Percent Auto 25.2 % (18.3-44.2); Mean Corpuscular HGB Conc 30.7 g/dl (32-36); Mean Corpuscular Hemoglobin 24.9 pg (26-34); Mean Corpuscular Volume 81.1 fl (80-100); Monocytes Absolute Auto 0.8 K/mm3 (0.1-0.6); Monocytes Percent Auto 9.5 % (2.6-8.5); Neutrophils Absolute Auto 4.7 K/mm3 (1.3-6.7); Neutrophils Percent Auto 58.6 % (45.5-73.1); Platelet Count Result 198 k/mm3 (150-375); Red Blood Count 5.39 M/mm3 (4.6-6.20); Red Cell Distribution Width 24.7 % (11.5-14.5); White Blood Count 7.9 K/mm3 (4.5-10.0)
[2022-06-30 15:05] LABS: Iron 204 ug/dL (49-181)
[2022-06-30 15:15] LABS: Alanine Aminotransferase 17 U/L (6-50); Albumin Level 4.3 g/dL (3.5-5.1); Alkaline Phosphatase 89 U/L (38-126); Anion Gap 6 mmol/L (8-16); Aspartate Amino Transferase 28 U/L (17-59); Bilirubin,Total 0.4 mg/dL (0.2-1.3); Blood Urea Nitrogen 14 mg/dL (9-20); Calcium 9.1 mg/dL (8.4-10.2); Carbon Dioxide 28 mmol/L (22-30); Chloride 105 mmol/L (98-107); Estimated Glomerular Filt Rate > 60; Glucose 83 mg/dL (65-110); Potassium 4.9 mmol/L (3.4-5.0); Sodium 139 mmol/L (137-145)
[2022-06-30 15:17] LABS: Percent Iron Saturation 57 % (20-50)
[2022-06-30 16:21] LABS: Folic Acid 16.8 ng/mL (2.76->20)
[2022-07-05 17:47] LABS: Soluble Transferrin Receptor 1.82 mg/L (0.76-1.76)
== END 2022-06-30 12:34 | disposition home or self-care (01) ==
LOC: ANHLAB 12:35
PROVIDERS: PCP Internal Medicine; Visit Provider Internal Medicine Hematology & Oncology
DX: D64.9 Anemia, unspecified (principal)
CPT/HCPCS: 36415; 80053; 82607; 82728; 82746; 83540; 83550; 84238; 85025; 85055

== ENCOUNTER 2022-11-01 08:55 | Outpatient (CLI) | payer MEDICARE, SELFPAY ==
--- NOTE | ~2022-11-01 | CT_ITS ---
CT of the Abdomen and Pelvis: Indication: Renal mass Technique: 2.5 mm axial scans were obtained through the abdomen and pelvis prior to and following in travenous administration of 100 cc of Omnipaque 350. Dose reduction technique was used on this scan b y utilizing automated exposure control and iterative reconstruction technique. The dose-length produc t (DLP) was 683.36 mGy-cm. COMPARISON: 04/30/2022 Findings: Scans through the lung bases are unremarkable. The liver, spleen, pancreas, gallbladder, and adrenal glands are within normal limits. Stable mildly hyperdense hemorrhagic or proteinaceous cyst in the right kidney noted. Stable additional simple bila teral renal cysts noted. There are atherosclerotic calcifications of the aorta. No lymphadenopathy. No bowel obstruction or bowel wall thickening. There is no evidence to suggest acute appendicitis. Si gmoid and descending colonic diverticulosis noted. Images through the pelvis were performed. Urinary bladder unremarkable. Prostate gland mildly enlarge d. Impression: Stable renal lesions, as detailed above, consistent with benign findings. Colonic diverticulosis. Reviewed, dictated and finalized at location . Impression: Stable renal lesions, as detailed above, consistent with benign findings. Colonic diverticulosis.
== END 2022-11-01 08:56 | disposition home or self-care (01) ==
PROVIDERS: PCP Internal Medicine; Visit Provider Internal Medicine Hematology & Oncology
DX: N28.89 Other specified disorders of kidney and ureter (principal); K57.90 Diverticulosis of intestine, part unspecified, without perforation or abscess without bleeding
CPT/HCPCS: 74178; Q9967

== ENCOUNTER 2024-10-04 10:59 | Inpatient (IN) | payer MEDICARE, SELFPAY ==
--- NOTE | ~2024-10-04 | XR_ITS ---
Clinical Indication: Chest pain PA and lateral views of the chest: Comparison: 04/26/2016 Findings: There is mild bibasilar haziness and interstitial prominence. Focal hazy opacity inferior r ight upper lobe.. Cardiomediastinal silhouette is within normal limits. There is kyphosis of the tho racic spine with moderate compression deformity of probably T7. Impression: Mild bibasilar haziness, as detailed above. Correlate for mild pulmonary edema, infection, or possibl y chronic changes. Reviewed, dictated and finalized at location M. Impression: Mild bibasilar haziness, as detailed above. Correlate for mild pulmonary edema, infection, or possibly chronic changes.
--- NOTE | ~2024-10-04 | NM_ITS ---
EXAMINATION: NM valentine stress w perfusion DATE: 10/06/2024 11:54 INDICATION: Angina pectoris. Coronary artery disease. TECHNIQUE: Rest images were obtained following intravenous administration of 9 mCi Tc99m tetrofosmin (Myoview). The patient was infused intravenously with Lexiscan (Regadenoson). Then, 29 mCi Tc99m tetr ofosmin (Myoview) was administered intravenously, and stress images were obtained. Data was reconstru cted into short axis and horizontal and vertical long axis SPECT images. Gated SPECT images were also obtained. COMPARISON: None. FINDINGS: Moderate to severe nonreversible perfusion defect involving the apical, each of the anterio r, septal, inferior and lateral apical segments as well as the mid anteroseptal, mid inferoseptal and and mid inferior segments. No reversible perfusion defects to suggest ischemia. There is normal left ventricular chamber size, wall motion and ejection fraction. Left ventricular ejection fraction nandini sures 55%. IMPRESSION: 1. 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 No reversible isc hemia. 2. Left ventricular ejection fraction measuring 55%. Reviewed, dictated and finalized at location A. IMPRESSION: 1. 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 No reversible ischemia. 2. Left ventricular ejection fraction measuring 55%.
--- NOTE | 2024-10-04 11:00 | ECG_ITS ---
Test Date: 2024-10-04 11:06:25 Measurements Intervals Outing Rate: 73 P: 57 NH: 177 QRS: -44 QRSD: 98 T: -33 QT: 353 QTc: 391 Interpretive Statements SINUS RHYTHM LEFT AXIS DEVIATION ANTEROSEPTAL MYOCARDIAL INFARCTION , OF INDETERMINATE AGE Electronically Signed On 10-05-2024 13:57:22 CDT by Marcos Donohue D.O
--- OUTSIDE RECORDS SUMMARY | 2024-10-04 11:01 | XMS_ITS | Continuity of Care Document ---
Author Organization [facility] Address [id number] [place] [address] [address] [place] [address] Phone Care Team Providers Care Manager Lean Name Role Phone Cassidy, Edclaudio Unavailable Unavailable Advance Directives Directive Yes / No Effective Date File Name No Information Encounters Encounter Description Practice Location Reason(s) For Visit Diagnoses Date Provider Providers Copied on Encounter [facility], [address], [place], [place], [id number], [place] tel:[phone] [facility] No Information Aug-0 7-200 0 Doisy Edward. [address] [facility] , [address], [place], [address], [place]. tel:[phone] Family History Family Member Type Diagnosis Age At Onset No Information Payers Payer name Insurance type Covered constitution party ID Authoriza tion(s) No Information Social History Type Description Quantity Date Captured Comments Sex Male Smoking Status No Information Chief Complaint And Reason For Visit No Information Reason For Referral Reason For Referral No Information History Of Present Illness Encounter Date Complaint History Of Prese nt Illness No Information Functional Status Date Functional Assessmen t No Information Instructions Date Instruction Additional Infor mation No Information Assessments Type Assessment Date No Information Patient Care Teams Name Effective Dates (start - stop) Status Members No Information
--- OUTSIDE RECORDS SUMMARY | 2024-10-04 11:01 | XMS_ITS | Clinical Summary ---
Author Organization [facility] Address [address] [facility] [place] [address] Care Team Providers Care Waste Machine Tender Name Role Phone Almas Edwards MD Primary Care Provider [phone] Allergies No known active allergies Medications atorvastatin (LIPITOR) 20 mg tablet Take 20 mg by mouth daily. 06/08/2022 Active ferrous sulfate 325 mg (65 mg iron) tablet Take 325 mg by mouth 2 times daily. 06/05/2022 Active lisinopriL (PRINIVIL) 10 mg tablet Take 10 mg by mouth daily. 06/14/2022 Active pantoprazole (PROTONIX) 40 mg Tablet, Delayed Release (E.C.) Take 40 mg by mouth daily. 06/14/2022 Active Vit C-Vit Q-Elmxof-XbZh-L utein (PRESERVISION) 226-90-0.8-5 mg Capsule Take 1 Capsule by mouth daily. Active tamsulosin (FLOMAX) 0.4 mg capsule Take 0.4 mg by mouth daily. Active Active Problems No known active problems Encounters Date Type Department Care Team Description 09/27/2024 External Device Data ST[facility] ABSTRACTION Provider, Abstract 09/26/2024 External Device Data [facility] ABSTRACTION Provider, Abstract 09/10/2024 External Device Data [facility] ABSTRACTION Provider, Abstract 08/14/2024 External Device Data [facility] ABSTRACTION Provider, Abstract from Last 3 Months Family History Medical History Relation Name Comments No Known Problems Brother Melanoma Father Heart Disease Mother No Known Problems Sister Melanoma Son 1 No Known Problems Son 2 Relation Name Status Comments Brother Alive Father Mother Sister Alive Son 1 Alive Son 2 Alive Social History Tobacco Use Types Packs/Day Years Used Date Smoking Tobacco: Former Cigarettes 1 40 0 07/23/1954 - 07/23/1994 Smokeless Tobacco: Never Tobacco Cessation:Counseling Given: Not Answered Sex and Gender Information Value Date Recorded Sex Assigned at Not on file Legal Sex Male 11:03 AM CDT Gender Identity Not on file Sexual Orientation Not on file Last Filed Vital Signs Vital Sign Reading Time Taken Comments Blood Pressure 138/71 11/21/2023 11:10 AM CDT Pulse 83 11/21/2023 11:10 AM CDT Temperature 36.4 C (97.5 F) 11/21/2023 11:10 AM CDT Respiratory Rate 14 11/21/2023 11:10 AM CDT Oxygen Saturation 94% 11/21/2023 11:10 AM CDT Inhaled Oxygen Concentration - - Weight 76.2 kg (168 lb) 11/21/2023 11:10 AM CDT Height 177.8 cm (5' 10 ) 06/30/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 Body Mass Index 24.11 06/30/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 RAG WASHER Plan of Treatment Upcoming Encounters Date Type Department Care Team (Late st Contact Info) Description 11/25/2024 11:00 AM CDT Office Visit [facility] Oncology and Hematology - [place] [address] [address] [facility] [address] [place] [address] [place] [address] [place] [address] [address] [place] [address] Health Maintenance Due Date Last Done Comments DTAP/TDAP/TD VACCINES (1 - Tdap) 09[birth year]27/1959 PNEUMOCOCCAL VACCINE 50+ YEARS (1 of 1 - PCV) 09/27/18 90 ZOSTER VACCINE (1 of 2) 09/27/1989 RSV VACCINE (60+ or ) (1 - 1-dose 75+ series) 09/27/2014 INFLUENZA VACCINE (#1) [address] [id number] [place] [id number] Care Teams Waste Machine Tender Relationship Specialty Start Date End Date Almas Edwards MD [address] [place] [address] PCP - General Family Practice 11/21/23
[2024-10-04 11:08] VITALS: BP 149/70; PULSE 78; RESP 20; TEMP 36.7; O2SAT 98
[2024-10-04 13:04] LABS: Basophils Absolute Auto 0.1 K/mm3 (0.0-0.1); Basophils Percent Auto 1.2 % (0.2-1.2); Eosinophils Absolute Auto 0.2 K/mm3 (0-0.3); Eosinophils Percent Auto 2.8 % (0-4.4); Hemoglobin 9.4 g/dL (14.0-18.0); Immature Granulocyte Absolute 0.03 K/mm3 (0.00-0.031); Immature Granulocyte Percent A 0.4 % (0-0.5); Lymphocytes Absolute Auto 1.32 K/mm3 (0.9-3.2); Lymphocytes Percent Auto 17.7 % (18.3-44.2); Mean Corpuscular HGB Conc 28.5 g/dl (32-36); Mean Corpuscular Hemoglobin 23.4 pg (26-34); Mean Corpuscular Volume 82.1 fl (80-100); Mean Platelet Volume 10.9 fl (7.4-10.4); Monocytes Absolute Auto 0.9 K/mm3 (0.1-0.6); Monocytes Percent Auto 11.9 % (2.6-8.5); Neutrophils Absolute Auto 4.9 K/mm3 (1.3-6.7); Platelet Count Result 287 k/mm3 (150-375); Red Blood Count 4.02 M/mm3 (4.6-6.20); Red Cell Distribution Width 15.1 % (11.5-14.5); White Blood Count 7.5 K/mm3 (4.5-10.0)
--- OUTSIDE RECORDS SUMMARY | 2024-10-04 13:13 | XMS_ITS | Continuity of Care Document ---
Author Organization [facility] Address [address] [place] [address] [address] [place] [address] Phone Care Team Providers Care Professor Of Apologetics Name Role Phone Cassidy, Edclaudio Unavailable Unavailable Advance Directives Directive Yes / No Effective Date File Name No Information Encounters Encounter Description Practice Location Reason(s) For Visit Diagnoses Date Provider Providers Copied on Encounter [facility], [address], [place], [place], [id number], [place] tel:[phone] [facility] No Information Aug-0 7-200 0 Doisy Edward. [address] [facility] , [address], [place], [address], [place]. tel:[phone] Family History Family Member Type Diagnosis Age At Onset No Information Payers Payer name Insurance type Covered alliance party ID Authoriza tion(s) No Information Social [...]
--- OUTSIDE RECORDS SUMMARY | 2024-10-04 13:13 | XMS_ITS | Clinical Summary ---
Author Organization [facility] Address [address] [facility] [place] [address] Care Team Providers Care Bus Girl Name Role Phone Almas Edwards MD Primary Care Provider [phone] Allergies No known active allergies Medications atorvastatin [...] by mouth daily. 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 BOARD PANELS TRIMMER Body Mass Index 24.11 06/30/2022 11:53 AM PRINTED CIRCUIT BOARD PANELS TRIMMER Plan of Treatment Upcoming Encounters Date Type Department Care Team (Late st Contact Info) Description 11/25/2024 11:00 AM CDT Office Visit [facility] Oncology and Hematology - [place] [address] [place] [address] [address] [place] [address] [place] [address] [place] [address] [address] [place] [address] Health Maintenance Due Date Last Done Comments DTAP/TDAP/TD VACCINES (1 - Tdap) 09/27/1959 PNEUMOCOCCAL VACCINE 50+ YEARS (1 of 1 - PCV) 09/27/18 90 ZOSTER VACCINE (1 of 2) 09/27/1989 RSV VACCINE (60+ or ) (1 - 1-dose 75+ series) 09/27/2014 INFLUENZA VACCINE (#1) [address] [address] [place] [id number] Care Teams Bus Girl Relationship Specialty Start Date End Date Almas Edwards MD [address] [place] [address] PCP - General Family Practice 11/21/23
[2024-10-04 13:16] LABS: Alanine Aminotransferase 16 U/L (6-50); Albumin Level 4.2 g/dL (3.5-5.1); Alkaline Phosphatase 79 U/L (38-126); Anion Gap 9 mmol/L (4-12); Aspartate Amino Transferase 19 U/L (17-59); Bilirubin,Total 0.6 mg/dL (0.2-1.3); Blood Urea Nitrogen 12 mg/dL (9-20); Calcium 9.2 mg/dL (8.4-10.2); Carbon Dioxide 26 mmol/L (22-30); Chloride 103 mmol/L (98-107); Estimated CRCL calculation 48 ml/min; Estimated Glomerular Filt Rate > 60; Glucose 84 mg/dL (65-110); Lipase 64 U/L (23-300); Sodium 138 mmol/L (137-145)
[2024-10-04 13:24] LABS: INR 1.1; Prothrombin Time 14.3 Seconds (11.1-14.7)
[2024-10-04 13:25] LABS: Partial Thromboplastin Time 29.1 Seconds (22.3-36.8)
[2024-10-04 13:28] LABS: Troponin I 0.013 ng/mL (0.000-0.034)
[2024-10-04] MEDS: ASPIRIN 81 MG CHEWABLE TABLET 324 MG PO (13:29)
--- NOTE | 2024-10-04 14:19 | ECG_ITS ---
Test Date: 2024-10-04 14:32:31 Measurements Intervals [place] Rate: 67 P: 54 NE: 199 QRS: -42 QRSD: 95 T: -34 QT: 407 QTc: 432 Interpretive Statements SINUS RHYTHM WITH SINUS ARRHYTHMIA ANTEROSEPTAL MYOCARDIAL INFARCTION , PROBABLY OLD Electronically Signed On 10-05-2024 13:58:48 CDT by Marcos Donohue D.O
--- NOTE | 2024-10-04 14:28 | ED.CHESTPAIN ---
HPI - Chest Pain General Chief Complaint: Chest Pain Stated Complaint: heartburn, chest pressure Time Seen by Provider: 10/04/24 13:05 History of Present Illness HPI narrative: 84-year-old male with a past medical history including CHF, CKD, COPD, previous stents for coronary artery disease. Patient presents to the emergency department today with complaints of exertional chest pain exertional dyspnea consistent with angina. He states for last several weeks he has been having chest pain in the center and chest underneath his ribs that begins whenever he exerts himself such as ascending or descending a flight of stairs or walking short distances. When he rests he has no symptoms. Endorses some mild shortness of breath when this occurs as well. Has not been able to call his doctors are scheduled outpatient follow-up for this. 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 Takes a baby aspirin daily. No other anticoagulants. No injury trauma. No recent injuries or illnesses. No fever, chills, cough or congestion. No sick contacts. Patient tells me this feels dissimilar from when he had to have a stent. Related Data Home Medications ?Medication ?Instructions ?Recorded ?Confirmed ?Last Taken ?Type cholecalciferol (vitamin D3) 25 25 mcg PO DAILY 09/17/20 10/04/24 11/20/20 09:00 History mcg (1,000 unit) capsule vitamin E 200 unit capsule 200 unit PO DAILY 09/17/20 10/04/24 11/20/20 09:00 History aspirin 81 mg tablet 81 mg PO DAILY 11/21/20 10/04/24 11/20/20 09:00 History prevagen 1 tablet PO DAILY 03/21/24 10/04/24 Unknown History ferrous sulfate 325 mg (65 mg 325 mg PO DAILY 10/04/24 10/04/24 Unknown History iron) tablet vit C 250 mg-vit E 90 mg-zinc 40 1 tablet PO BID 10/04/24 10/04/24 Unknown History mg-copper 1 [id number] capsule (PreserVision AREDS-2) Allergies Allergy/AdvReac Type Severity Reaction Status Date / Time No Known Allergies Allergy Unknown Verified 10/04/24 18:11 Review of Systems Review of Systems: As reviewed above in HPI [facility] Past Medical History Medical History Diastolic dysfunction History of tobacco use Asbestosis Iron deficiency anemia H. pylori duodenitis Hyperlipidemia Hypertension Coronary artery disease COPD (chronic obstructive pulmonary disease) Kidney stones Diastolic heart failure Echocardiogram April 2016: Normal ejection fraction of 65%, grade 2 diastolic dysfunction Surgical History Surgical History History of hernia repair Right inguinal hernia repair x2 with most recent repair July 2015 History of tonsillectomy H/O cataract extraction History of partial thyroidectomy (~01/2011) History of heart artery stent (~2010) Family History Family History Mother Heart disease Father Heart disease Melanoma Social History Social History Social History: He lives in [place] with his of 64 years. They had 2 sons. He is retired from the [employer]. He is still independent in activities of daily living and ambulates without assistance. He still drives. He had a distant history of 20 pack per year smoking history but quit smoking in . Primary care physician: Dr. Iam Sabillon Code status: DNR/DNI per patient request Surrogate decision maker: Tonia () Smoking packs per day: 1 Smoking cigarettes per day: 20.0 Years smoked: 45 Smoking pack-years: 45.00 Smoking status: Former smoker Tobacco type: cigarettes Second hand tobacco smoke exposure: No Alcohol intake: never Substance use: never Substance use type: does not use Do You Feel Safe in your Home?: Yes Lack of Transportation: No Lack of Food: Never True Current Housing: I Have Housing Concerned About Future Housing: No Difficulty Paying Gas/Electric Bills: No Difficulty Paying for Meds: No Currently Unemployed: No Education: High School Diploma/GED Difficulty w/ Childcare or Family Care: No Living arrangements: with family Gender identity (if verbalized by the patient): Male Sexual Orientation (if Verbalized by the Patient): Straight or Heterosexual Spiritual care concerns: No Exam Narrative: GENERAL: [Well-appearing, well-nourished, and in no acute distress.] HEAD: [Normocephalic, atraumatic.] EYES: [PERRLA and EOMI.] ENT: Nares clear, no rhinorrhea or epistaxis. Mucous membranes moist. NECK: Supple. CHEST: [Clear to auscultation. No respiratory distress.] HEART: [Regular rate and rhythm]. No murmur heard. [Normal peripheral pulses.] ABDOMEN: [Soft, nondistended], [nontender], [No rigidity or guarding] EXTREMITIES: Normal range of motion. 1+ pitting edema SKIN: Warm, dry, no rash. NEURO: [No focal deficits]. Alert and oriented [x3.] PSYCH: [Normal mood and affect.] Course Vital Signs Vital signs: Vital Signs Temperature 36.7 C 10/04/24 11:08 Pulse Rate 78 10/04/24 11:08 Respiratory Rate 20 10/04/24 11:08 Blood Pressure 149/70 H 10/04/24 11:08 Pulse Oximetry 98 10/04/24 11:08 Oxygen Delivery Room Air 10/04/24 11:08 Temperature 36.7 C 10/04/24 11:08 Pulse Rate 85 10/04/24 16:57 Respiratory Rate 16 10/04/24 16:57 Blood Pressure 134/67 10/04/24 16:57 Pulse Oximetry 95 10/04/24 16:57 Oxygen Delivery Room Air 10/04/24 15:00 MDM - Chest Pain MDM Narrative Medical decision making narrative: 84-year-old male with a past medical history including coronary disease with stent, CHF, CKD and COPD. He presents with exertional chest pain exertional dyspnea consistent with angina. He states this is been going on for last several weeks. Does not present see a power supply engineer. Denies any chest pain or difficulty breathing at rest but states when he gets up and exerts himself he feels the symptoms. No nausea, vomiting, injury trauma. He is otherwise well-appearing but does have 1+ pitting edema to his legs. He is currently saturating well on room air, no tachycardia or tachypnea. Normal blood pressure. Considerations presently are for ACS, angina, GERD, musculoskeletal chest pain, CHF. Low suspicion thromboembolic event as he is not tachycardic, hypoxic or has any PE risk factors at this time. Wells criteria is low and could be safely excluded. Workup was ordered including serial EKG, serial troponin, CBC, CMP, chest x-ray, lipase. Presently he is asymptomatic at rest. Placed on rn cardiac cath and pulse oximetry and re-evaluated frequently. Patient's workup reveals no leukocytosis, hemoglobin 9.4 which is lower than his previous level but he has a history of iron deficiency anemia with hemoglobins as low in the past. Normal platelet count. Negative troponin x2. Normal electrolyte profile. BNP mildly elevated to 1630. Negative lipase. Chest x-ray with potential mild pulmonary edema consistent with his BNP elevation and exam. No signs of infection, no pneumonia, fever, hypoxia cough. EKG obtained shows sinus rhythm, no signs of ST segment elevations or depressions. Patient is high risk given his past medical history and his description of chest pain and shortness of breath with exertion. I discussed the case with the hospitalist who accepted him to a observation admission onto a monitored bed. Family was made aware of the plan patient was comfortable with admission at this time. Echocardiogram ordered, consultation placed to Cardiology. Medical Records Data Attestation: I reviewed the patient's medical records. Lab Data Attestation: I reviewed the patient's lab results. 10/04/24 12:57 10/04/24 12:56 Labs: Lab Results 10/04/24 10/04/24 10/04/24 Range/Units 12:56 12:57 14:09 WBC 7.5 (4.5-10.0) K/mm3 RBC 4.02 L (4.6-6.20) M/mm3 Hgb 9.4 L D (14.0-18.0) g/dL Hct 33.0 L (42.0-52.0) % MCV 82.1 (80-100) fl MCH 23.4 L (26-34) pg MCHC 28.5 L (32-36) g/dl RDW 15.1 H (11.5-14.5) % Plt Count 287 (150-375) k/mm3 MPV 10.9 H (7.4-10.4) fl Immature Gran % (Auto) 0.4 (0-0.5) % Neut % (Auto) 66.0 (45.5-73.1) % Lymph % (Auto) 17.7 L (18.3-44.2) % Citrus % (Auto) 11.9 H (2.6-8.5) % Eos % (Auto) 2.8 (0-4.4) % Baso % (Auto) 1.2 (0.2-1.2) % Lymph # (Auto) 1.32 (0.9-3.2) K/mm3 Citrus # (Auto) 0.9 H (0.1-0.6) K/mm3 Eos # (Auto) 0.2 (0-0.3) K/mm3 Baso # (Auto) 0.1 (0.0-0.1) K/mm3 Abs Immat Gran (auto) 0.03 (0.00-0.031) K/mm3 Absolute Neuts (auto) 4.9 (1.3-6.7) K/mm3 Absolute Nucleated RBC 0.000 (0.0-0.012) K/mm3 Nucleated RBC % 0.0 (0.0-0.2) % PT 14.3 (11.1-14.7) Seconds INR 1.1 APTT 29.1 (22.3-36.8) Seconds Sodium 138 (137-145) mmol/L Potassium 4.0 (3.4-5.0) mmol/L Chloride 103 (98-107) mmol/L Carbon Dioxide 26 (22-30) mmol/L Anion Gap 9 (4-12) mmol/L BUN 12 (9-20) mg/dL Creatinine 1.02 (0.7-1.3) mg/dL Estim Creat Clear Calc 48 ml/min Estimated GFR > 60 (59 - ) Glucose 84 (65-110) mg/dL Calcium 9.2 (8.4-10.2) mg/dL Total Bilirubin 0.6 (0.2-1.3) mg/dL AST 19 (17-59) U/L ALT 16 (6-50) U/L Alkaline Phosphatase 79 (38-126) U/L Troponin I 0.013 < 0.012 (0.000-0.034) ng/mL NT-Pro-B Natriuret Pep 2630 H (19.9-100) pg/mL Total Protein 7.0 (6.3-8.2) g/dL Albumin 4.2 (3.5-5.1) g/dL Lipase 64 (23-300) U/L Imaging Data Attestation: I personally reviewed and interpreted this imaging study as follows: My impression: Impressions Chest X-Ray 10/04/24 12:23 Impression: Mild bibasilar haziness, as detailed above. Correlate for mild pulmonary edema, infection, or possibly chronic changes. Discharge Plan Discharge Clinical Impression: Chest pain Patient Disposition: Still a Patient Condition: Stable
[2024-10-04 14:35] LABS: NT Pro B Type Natriuretic Pept 2630 pg/mL (19.9-100); Troponin I < 0.012 ng/mL (0.000-0.034)
[2024-10-04 16:01] VITALS: BP 134/68; PULSE 67; RESP 18; O2SAT 100
[2024-10-04 16:57] VITALS: BP 134/67; PULSE 85; RESP 16; O2SAT 95
--- NOTE | 2024-10-04 16:57 | PM.IMHP ---
H&P: HPI History of Present Illness Date/Time: 10/04/24 16:57 Chief Complaint: Chest Pain Narrative: 84 y/o M presents here with chest pain with PMH of COPD, diastolic heart failure, kidney stones, HLD, and HTN. The patient presents here from home for further evaluation of chest pain. He reports the exertional chest pain started 2-3 weeks ago. He describes the pain as progressive, midsternal, radiating into his right shoulder and right neck, intermittent, accompanied by exertional dyspnea, no other aggravating factors, and alleviated with rest and belching. Exertional chest pain/shortness of breath is accompanied by headache and lower extremity swelling. He denies nausea, vomiting, diaphoresis, dizziness, palpitations. He has a cardiac history significant for diastolic failure, coronary artery stent placement x1, and atherosclerotic heart disease. He does not currently follow with a topographical engineer. Last stress test in 2015, normal. Initial VS at presentation: 98.1? F, HR 78, R 20, 149/70, and 98% on RA. ED workup showed: No leukocytosis, hemoglobin 9.4 (previously 14.0 in October 2023), normal coags, no significant electrolyte derangements, creatinine 1.02 and GFR >60, initial troponin 0.013 (repeat < 0.012), BNP 2630. CXR showed mild bibasilar haziness (mild pulmonary edema versus infection versus possible chronic changes). Initial EKG showed sinus rhythm, rate 73, marked left axis deviation, anteroseptal OR of indeterminate age. Review of Systems Review of Systems: All systems reviewed & are unremarkable except as noted in HPI and below [facility] Past Medical History Medical History Diastolic dysfunction History of tobacco use Asbestosis Iron deficiency anemia H. pylori duodenitis Hyperlipidemia Hypertension Coronary artery disease COPD (chronic obstructive pulmonary disease) Kidney stones Diastolic heart failure Echocardiogram April 2016: Normal ejection fraction of 65%, grade 2 diastolic dysfunction Surgical History Surgical History History of hernia repair Right inguinal hernia repair x2 with most recent repair July 2015 History of tonsillectomy H/O cataract extraction History of partial thyroidectomy (~01/2011) History of heart artery stent (~2010) Family History Family History Mother Heart disease Father Heart disease Melanoma Social History Social History Social History: He lives in [place] with his of 64 years. They had 2 sons. 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 He is still independent in activities of daily living and ambulates without assistance. He still drives. He had a distant history of 20 pack per year smoking history but quit smoking in . Primary care physician: Dr. Iam Sabillon Code status: DNR/DNI per patient request Surrogate decision maker: Tonia () Smoking packs per day: 1 Smoking cigarettes per day: 20.0 Years smoked: 45 Smoking pack-years: 45.00 Smoking status: Former smoker Tobacco type: cigarettes Second hand tobacco smoke exposure: No Alcohol intake: never Substance use: never Substance use type: does not use Do You Feel Safe in your Home?: Yes Lack of Transportation: No Lack of Food: Never True Current Housing: I Have Housing Concerned About Future Housing: No Difficulty Paying Gas/Electric Bills: No Difficulty Paying for Meds: No Currently Unemployed: No Education: High School Diploma/GED Difficulty w/ Childcare or Family Care: No Living arrangements: with family Gender identity (if verbalized by the patient): Male Sexual Orientation (if Verbalized by the Patient): Straight or Heterosexual Spiritual care concerns: No Meds Home Medications and Allergies Home Medications ?Medication ?Instructions ?Recorded ?Confirmed ?Type cholecalciferol (vitamin D3) 25 25 mcg PO DAILY 09/17/20 10/04/24 History mcg (1,000 unit) capsule vitamin E 200 unit capsule 200 unit PO DAILY 09/17/20 10/04/24 History aspirin 81 mg tablet 81 mg PO DAILY 11/21/20 10/04/24 History prevagen 1 tablet PO DAILY 03/21/24 10/04/24 History atorvastatin 20 mg tablet See Rx Instructions .Route 04/14/24 10/04/24 Rx .COMPLEX #90 tabs lisinopril 10 mg tablet See Rx Instructions .Route 06/05/24 10/04/24 Rx .COMPLEX #90 tabs tamsulosin 0.4 mg capsule 0.4 mg PO QHS #90 caps 06/05/24 10/04/24 Rx ferrous sulfate 325 mg (65 mg 325 mg PO DAILY 10/04/24 10/04/24 History iron) tablet vit C 250 mg-vit E 90 mg-zinc 40 1 tablet PO BID 10/04/24 10/04/24 History mg-copper 1 [id number] capsule (PreserVision AREDS-2) Allergies Allergy/AdvReac Type Severity Reaction Status Date / Time No Known Allergies Allergy Unknown Verified 10/04/24 18:11 Vital Signs Vital Signs - 24 hr 10/04/24 11:08 10/04/24 15:00 10/04/24 16:01 Temperature 98.1 F Pulse Rate 78 67 Respiratory Rate 20 18 Blood Pressure 149/70 H 134/68 Pulse Oximetry 98 100 Oxygen Delivery Room Air Room Air 10/04/24 16:57 Temperature Pulse Rate 85 Respiratory Rate 16 Blood Pressure 134/67 Pulse Oximetry 95 Oxygen Delivery Exam Const: General: comfortable and no acute distress Other: , male, nontoxic appearance HENMT: Face/Nose/Sinus: Normal nares present Mouth: Yes moist mucous membranes Eyes: General: appearance normal, both eyes and all related structures Sclera: sclerae normal Pupils: Equal, round and reactive pupils present EOM: EOMs intact bilaterally Resp: Effort & Inspection: normal respiratory effort Auscultation: clear to auscultation bilaterally Cardio: Rate: regular rate Rhythm: regular rhythm Other: S1-S2 present without murmur, rub, ectopy Skin: General skin exam: normal color and no rashes or lesions noted Wounds: no wounds Neuro: Speech: normal speech Motor exam (neuro): 5/5 motor strength present throughout Sensory Exam: normal sensation Other: A&O x4 Extrem: General: edema Other: 2+ pitting edema to BLE, symmetric. Psych: Mental Status: mental status grossly normal Affect: normal affect Other: Good insight and judgment, pleasant H&P: Results Labs Labs: Short CBC 10/04/24 Range/Units 12:57 WBC 7.5 (4.5-10.0) K/mm3 Hgb 9.4 L D (14.0-18.0) g/dL Hct 33.0 L (42.0-52.0) % Plt Count 287 (150-375) k/mm3 [facility] 03/15/25 12:56 Sodium 138 Potassium 4.0 Chloride 103 Carbon Dioxide 26 BUN 12 Creatinine 1.02 Glucose 84 Calcium 9.2 Cardiac Enzymes 10/04/24 10/04/24 Range/Units 12:56 14:09 Troponin I 0.013 < 0.012 (0.000-0.034) ng/mL Liver Function 10/04/24 Range/Units 12:56 Total Bilirubin 0.6 (0.2-1.3) mg/dL AST 19 (17-59) U/L ALT 16 (6-50) U/L Alkaline Phosphatase 79 (38-126) U/L Albumin 4.2 (3.5-5.1) g/dL Assessment and Plan Assessment and plan (1) Chest pain, exertional: Code(s): R07.9 - Chest pain, unspecified Status: Acute Assessment and Plan: - EKG, initial: Sinus rhythm, rate 73, marked left axis deviation, anteroseptal OR of indeterminate age. Awaiting formal read. - EKG, repeat (1): No significant change compared to prior, awaiting formal read. - CXR: Mild bibasilar haziness, as detailed above. Correlate for mild pulmonary edema, infection, or possibly chronic changes. - Troponin: 0.013 -> <0.012 x2 - ASA 324 given -> 81 daily - SL nitro PRN - cardiology consulted, awaiting recs - update echo, suspicion for CHF exacerbation versus ACS - telemetry monitoring Suspect exertional chest pain and shortness of breath are related to a CHF exacerbation. Patient has known grade 1 diastolic dysfunction and possible pulmonary edema on CXR, not currently on a diuretic. While awaiting Cardiology's recommendations, will start Lasix. Cannot exclude ACS, worsening anemia, or pneumonia, however the patient does not have a leukocytosis and patient's baseline hemoglobin varies, unclear if acute change or normal fluctuation. Most recent hemoglobin for comparison was approximately 1 year ago. Patient also reporting some relief with belching/drinking a white soda when the chest pain occurs. Will start pantoprazole. (2) Diastolic dysfunction: Code(s): I51.89 - Other ill-defined heart diseases Status: Acute Assessment and Plan: - BNP 2630 - most recent echo (2020): Normal systolic function, estimated EF 65-70%, grade 1 diastolic dysfunction. See report for full details. - not currently on a diuretic, start Lasix 20 mg IV b.i.d. - monitor I&Os and daily weights - trend renal function (3) Anemia: Qualifiers: Anemia type: unspecified type Qualified Code(s): D64.9 - Anemia, unspecified Code(s): D64.9 - Anemia, unspecified Status: Chronic Assessment and Plan: Patient is on a iron supplement daily, stool dark due to this. Denies any BRB per rectum. - Hgb 9.4, previously 14 on 11/15/2023 - will repeat iron studies - Hx of FAREED, continue home iron supplementation. - transfuse if <7 - monitor (4) Hypertension: Qualifiers: Hypertension type: primary hypertension Qualified Code(s): I10 - Essential (primary) hypertension Code(s): I10 - Essential (primary) hypertension Status: Chronic Assessment and Plan: - chronic, currently 134/67 - continue home medications: Lisinopril - monitor Plan Diet: Heart healthy GI Prophylaxis: Not currently indicated DVT Prophylaxis: SCDs Lines: Peripheral Code Status: DNR Quality VTE Prophylaxis VTE prophylaxis: mechanical ordered Hospitalist MIPS Advance Care Plan I have confirmed that the patient's Advanced Care Plan is present, code status is documented, or surrogate decision maker is listed in patient medical record.: Yes Medication Reconciliation I have utilized all available resources to obtain, update and review the patients current medications (includes all prescriptions, OTC, herbals, cannabis, and nutritional supplements).: Yes
--- NOTE | 2024-10-04 17:04 | ECG_ITS ---
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
[2024-10-04 17:24] LABS: Troponin I < 0.012 ng/mL (0.000-0.034)
--- NOTE | 2024-10-04 17:41 | PC.NURSE ---
EKG completed with 6 hour troponin at [address] and signed off [address] Dr[address] Fung.
--- NOTE | 2024-10-04 17:55 | ADMGEN ---
This patient, Pranay Casanova, was admitted to Medical Room 259-01. Patient/family oriented to hospital policies and general routines including ID bracelet, bed and alarms, visiting hours, pain management, procedures, bathroom and other care routines, personal items, smoking policy, room service/diet, and visiting hours. Information on how to activate the Rapid Response Team has been discussed. Patient/Family are encouraged to report perceived risks to care and to ask questions if they do not understand what they are told or what they should do.
[2024-10-04 17:57] VITALS: BMI 23.5
[2024-10-04 20:00] VITALS: PULSE 81; O2SAT 95
[2024-10-04 22:00] VITALS: BP 109/59; PULSE 69; RESP 18; TEMP 36.7; O2SAT 95
[2024-10-05] VITALS (10 sets, daily range): BP systolic 100–125; BP diastolic 54–63; PULSE 62–90; RESP 16–18; TEMP 36.3–36.8; O2SAT 94–95
[2024-10-05] MEDS: ATORVASTATIN 20 MG TABLET PO ×2 (00:10→08:37)
[2024-10-05] MEDS: ACETAMINOPHEN 325 MG TABLET 650 MG PO (00:10)
--- NOTE | 2024-10-05 07:58 | P.PNIM_ITS ---
Progress Note: A&P Assessment and Plan (1) Chest pain, exertional: Code(s): R07.9 - Chest pain, unspecified Status: Acute Assessment and Plan: * EKG, initial: Sinus rhythm, rate 73, marked left axis deviation, anteroseptal KS of indeterminate age. Awaiting formal read. * EKG, repeat (1): No significant change compared to prior, awaiting formal read. * CXR: Mild bibasilar haziness, as detailed above. Correlate for mild pulmonary edema, infection, or possibly chronic changes. * Troponin x 3 negative * ASA 324 given -> 81 daily * SL nitro PRN * cardiology consulted, awaiting recs * update echo, suspicion for CHF exacerbation versus ACS * telemetry monitoring 10/05/24: * ACS vs stable angina vs CHF potential * Stress test? Will wait for cardiology's recommendation * Imdur? if stable angina * Started on IV lasix will assess for improvement * Echo pending * lipid panel currently on atorvastatin 20mg (2) Diastolic dysfunction: Code(s): I51.89 - Other ill-defined heart diseases Status: Acute Assessment and Plan: * BNP 2630 * most recent echo (2020): Normal systolic function, estimated EF 65-70%, grade 1 diastolic dysfunction. See report for full details. * Echo pending * not currently on a diuretic, start Lasix 20 mg IV b.i.d. * monitor I&Os and daily weights * trend renal function * Cardiology consulted for further recommendations (3) Anemia: Qualifiers: Anemia type: unspecified type Qualified Code(s): D64.9 - Anemia, unspecified Code(s): D64.9 - Anemia, unspecified Status: Chronic Assessment and Plan: Patient is on a iron supplement daily, stool dark due to this. Denies any BRB per rectum. * Hgb 9.4, previously 14 on 11/15/2023 * Chronic FAREED has had previous blood transfusion * Could be contributing to patient's shortness of breath * will repeat iron studies * Hx of FAREED, continue home iron supplementation. * transfuse PRBC if Hgb <7 * No overt signs of GIB (4) Hypertension: Qualifiers: Hypertension type: primary hypertension Qualified Code(s): I10 - Essential (primary) hypertension Code(s): I10 - Essential (primary) hypertension Status: Chronic Assessment and Plan: * chronic, currently 134/67 * continue home medications: Lisinopril * Reviewed monitor per unit protocol Plan Code status: DNR DVT prophylaxis: SCD Stress ulcer prophylaxis: Protonix 40 daily PT/OT notes: Disposition: Patient admitted to the medical unit on telemetry for evaluation of chest pain and exertional SOB likely secondary to CHF exacerbation. IV Lasix initiated and echo pending cardiology consulted for recommendations may need to rule out any ACS but trops have been negative and no ST/T changes on EKGs. Possible stress test and Echo pending Time Spent With Patient Time with patient: 15 - 25 minutes Subjective Date/time seen: 10/05/24 07:58 Interval history: Patient was admitted for shortness of breath worse with exertion, chest pain and chf exacerbation. 10/05/2024: Assumed Care Patient still reported intermittent chest pain with exertion you patient states currently at rest no chest pain however when he does ambulate he begins to get chest pain with some chest pain and sometimes radiates to right side of chest. Patient with previous history in 2000 stent placement. May not be unreasonable for stress test for potential ACS vs stable angina vs CHF. Review of Systems Review of Systems: All systems reviewed & are unremarkable except as noted in HPI and below Exam Const: General: comfortable and no acute distress Eyes: General: appearance normal, both eyes and all related structures Neck: Neck: no JVD Resp: Auscultation: crackles (Scant to BLL) bilateral Cardio: Rate: regular rate Rhythm: regular rhythm Neuro: General: gait normal Speech: normal speech Extrem: General: normal to inspection Psych: Mental Status: mental status grossly normal Objective Data Vital Signs Vital Signs: Vital Signs - 24 hr 10/04/24 11:08 10/04/24 15:00 10/04/24 16:01 Temperature 98.1 F Pulse Rate 78 67 Respiratory Rate 20 18 Blood Pressure 149/70 H 134/68 Pulse Oximetry 98 100 Oxygen Delivery Room Air Room Air 10/04/24 16:57 10/04/24 20:00 10/04/24 20:00 Temperature Pulse Rate 85 81 Respiratory Rate 16 Blood Pressure 134/67 Pulse Oximetry 95 95 Oxygen Delivery Room Air 10/04/24 22:00 10/05/24 00:00 10/05/24 04:00 Temperature 98.0 F Pulse Rate 69 62 79 Respiratory Rate 18 Blood Pressure 109/59 L Pulse Oximetry 95 Oxygen Delivery 10/05/24 06:00 Temperature 98.0 F Pulse Rate 81 Respiratory Rate 18 Blood Pressure 125/58 L Pulse Oximetry 94 Oxygen Delivery Intake/Output Intake/Output: Intake & Output 10/02/24 10/03/24 10/04/24 10/05/24 23:59 23:59 23:59 23:59 Output Total 700 Balance -700 Meds/Results Medications: Active Medications Generic Name Dose Route Start Last Admin Trade Name Freq PRN Reason Stop Dose Admin Acetaminophen 650 mg 10/04/24 23:48 10/05/24 00:10 Acetaminophen 325 Mg Tablet PO 650 mg Q6H PRN Administration Mild Pain (1-3) or Fever Aspirin 81 mg 10/05/24 09:00 Aspirin 81 Mg Enteric Tablet PO QAM [facility] Atorvastatin Calcium 20 mg 10/04/24 23:15 10/05/24 00:10 Atorvastatin 20 Mg Tablet PO 20 mg DAILY [facility] Administration Ferrous Sulfate 325 mg 10/05/24 09:00 Ferrous Sulfate [address] BY MOUTH DAILY [facility] Furosemide 20 mg 10/05/24 09:00 Furosemide Inj 40 Mg/4 Ml Vial IV PUSH BID [facility] Lisinopril 10 mg 10/05/24 09:00 Lisinopril 10 Mg Tablet PO DAILY [facility] Multivitamins/Minerals 1 tablet 10/05/24 09:00 Opti-Gen Tab PO BID [facility] Nitroglycerin 0.4 mg 10/04/24 17:12 Nitroglycerin Sl 0.4 Mg Tablet SUBLINGUAL Q5MIN PRN Chest Pain Pantoprazole Sodium 40 mg 10/05/24 09:00 Pantoprazole 40 Mg Tablet PO QAM [facility] Perflutren Lipid Microsphere 0 ml 10/04/24 16:00 Perflutren Lipid Microspheres 1.5 Ml Vial Diluted To 10 Ml Total Volume IV PUSH 10/07/24 16:01 ONCE PRN adequate visualization Protocol Tamsulosin HCl 0.4 mg 10/05/24 21:00 Tamsulosin Hcl 0.4 Mg Capsule PO QHS [facility] Vitamin D 1,000 units 10/05/24 09:00 Cholecalciferol 1,000 Units Tablet PO DAILY [facility] Vitamin E 200 unit 10/05/24 09:00 Vitamin E 100 Unit Capsule PO QAM [facility] Radiology Results: ITS Impressions Chest X-Ray 10/04/24 12:23 Impression: Mild bibasilar haziness, as detailed above. Correlate for mild pulmonary edema, infection, or possibly chronic changes. Labs Labs: Laboratory Results - last 24 hr 10/04/24 10/04/24 10/04/24 12:56 12:57 14:09 WBC 7.5 RBC 4.02 L Hgb 9.4 L D Hct 33.0 L MCV 82.1 MCH 23.4 L MCHC 28.5 L RDW 15.1 H Plt Count 287 MPV 10.9 H Immature Gran % (Auto) 0.4 Neut % (Auto) 66.0 Lymph % (Auto) 17.7 L Roberts % (Auto) 11.9 H Eos % (Auto) 2.8 Baso % (Auto) 1.2 Lymph # (Auto) 1.32 Roberts # (Auto) 0.9 H Eos # (Auto) 0.2 Baso # (Auto) 0.1 Abs Immat Gran (auto) 0.03 Absolute Neuts (auto) 4.9 Absolute Nucleated RBC 0.000 Nucleated RBC % 0.0 PT 14.3 INR 1.1 APTT 29.1 Sodium 138 Potassium 4.0 Chloride 103 Carbon Dioxide 26 Anion Gap 9 BUN 12 Creatinine 1.02 Estim Creat Clear Calc 48 Estimated GFR > 60 Glucose 84 Calcium 9.2 Total Bilirubin 0.6 AST 19 ALT 16 Alkaline Phosphatase 79 Troponin I 0.013 < 0.012 NT-Pro-B Natriuret Pep 2630 H Total Protein 7.0 Albumin 4.2 Lipase 64 10/04/24 16:56 WBC RBC Hgb Hct MCV MCH MCHC RDW Plt Count MPV Immature Gran % (Auto) Neut % (Auto) Lymph % (Auto) Roberts % (Auto) Eos % (Auto) Baso % (Auto) Lymph # (Auto) Roberts # (Auto) Eos # (Auto) Baso # (Auto) Abs Immat Gran (auto) Absolute Neuts (auto) Absolute Nucleated RBC Nucleated RBC % PT INR APTT Sodium Potassium Chloride Carbon Dioxide Anion Gap BUN Creatinine Estim Creat Clear Calc Estimated GFR Glucose Calcium Total Bilirubin AST ALT Alkaline Phosphatase Troponin I < 0.012 NT-Pro-B Natriuret Pep Total Protein Albumin Lipase Quality VTE Prophylaxis VTE prophylaxis: mechanical ordered -Patient's previous records reviewed on admission -ER notes reviewed in detail on admission -discussed all findings and current treatment plan with patient/Family/POA -Consultations reviewed for recommendations -Patient's disposition for safe discharge discussed with case investigator Dictation performed by [employer] direct speech recognition software, therefore tool and die technician variants and typographical errors may occur. Hospitalist MIPS Advance Care Plan I have confirmed that the patient's Advanced Care Plan is present, code status is documented, or surrogate decision maker is listed in patient medical record.: Yes Medication Reconciliation I have utilized all available resources to obtain, update and review the patients current medications (includes all prescriptions, OTC, herbals, cannabis, and nutritional supplements).: Yes The patient is not eligible for med reconciliation; the patient is in a emergent medical situation where delaying treatment would jeopardize the patients health.: No
[2024-10-05] MEDS: CHOLECALCIFEROL 1,000 UNITS TABLET 1000 UNITS PO (08:37)
[2024-10-05] MEDS: PANTOPRAZOLE 40 MG TABLET PO (08:37)
[2024-10-05] MEDS: OPTI-GEN TAB 1 TABLET PO ×2 (08:38→16:59)
[2024-10-05] MEDS: ASPIRIN 81 MG ENTERIC TABLET PO (08:38)
[2024-10-05] MEDS: FERROUS SULFATE 325 MG TABLET DR BY MOUTH (08:38)
[2024-10-05] MEDS: lisinopriL 10 MG TABLET PO (08:38)
[2024-10-05 08:40] LABS: Hematocrit 29.8 % (42.0-52.0); Hemoglobin 8.5 g/dL (14.0-18.0); Mean Corpuscular HGB Conc 28.5 g/dl (32-36); Mean Corpuscular Hemoglobin 23.4 pg (26-34); Mean Corpuscular Volume 81.9 fl (80-100); Mean Platelet Volume 10.6 fl (7.4-10.4); Platelet Count Result 252 k/mm3 (150-375); Red Blood Count 3.64 M/mm3 (4.6-6.20); Red Cell Distribution Width 15.1 % (11.5-14.5); White Blood Count 4.5 K/mm3 (4.5-10.0)
[2024-10-05] MEDS: FUROSEMIDE INJ 40 MG/4 ML VIAL 20 MG IV PUSH ×2 (08:50→16:59)
[2024-10-05 09:16] LABS: Alanine Aminotransferase 13 U/L (6-50); Albumin Level 3.3 g/dL (3.5-5.1); Alkaline Phosphatase 64 U/L (38-126); Anion Gap 10 mmol/L (4-12); Aspartate Amino Transferase 17 U/L (17-59); Bilirubin,Total 0.5 mg/dL (0.2-1.3); Blood Urea Nitrogen 14 mg/dL (9-20); Calcium 8.6 mg/dL (8.4-10.2); Carbon Dioxide 21 mmol/L (22-30); Chloride 106 mmol/L (98-107); Estimated CRCL calculation 46 ml/min; Estimated Glomerular Filt Rate > 60; Glucose 76 mg/dL (65-110); Magnesium 2.2 mg/dL (1.6-2.3); Potassium 4.1 mmol/L (3.4-5.0); Sodium 137 mmol/L (137-145)
--- NOTE | 2024-10-05 09:40 | PM.CNCAR ---
Assessment and Plan Assessment and plan (1) Angina of effort: Code(s): I20.89 - Other forms of angina pectoris Status: Acute Assessment and Plan: 84-year-old male with CAD, history of remote PCI/stenting in 2000 at [facility] (intervention report not available) in the setting of angina, hypertension, dyslipidemia, ?peptic ulcer disease, iron deficiency anemia. Patient presented to hospital with about 3 week history of exertional chest pain consistent with angina. No acute ST segment abnormality on EKG. Serial troponins negative. -patient has known CAD, and remote history of PCI/stenting. Patient's presenting symptomatology is concerning for obstructive CAD, although his anemia could be contributing to his symptoms as well. Patient is DNR status but does want further ischemic evaluation. Invasive workup with coronary angiogram would be appropriate however, would recommend workup for patient's anemia, including GI evaluation prior to cardiac catheterization. In addition, patient is DNR, and does not want to change DNR status at this time for the duration of the cardiac catheterization. After extensive discussion, he wants to proceed with pharmacological MPI to check for any significant myocardial ischemia before invasive workup is considered as necessary. Check echocardiogram Doppler to assess LV function and rule out any major structural heart disease. Patient may continue on aspirin and statin for now. Telemetry monitoring. History of Present Illness History of Present Illness Consult date/time: 10/05/24 09:40 Requesting physician: Derick Fung MD Consult reason: chest pain Reason For Visit: EXERTIONAL CHEST PAIN/DYSPNEA Narrative: DATE OF CONSULT: 10/05/2024 REASON FOR CONSULT: Chest pain REQUESTING PHYSICIAN: MD Antonieta CHIEF COMPLAINT: Chest pain HPI: 84-year-old male with CAD, history of remote PCI/stenting in 2000 at [facility] (intervention report not available) in the setting of angina, hypertension, dyslipidemia, peptic ulcer disease, iron deficiency anemia. Patient has history of CAD, and reports PCI/stenting x1 in 2000 at [facility], performed by ?Dr. Pina as per patient. He has not had regular follow-up visit with Cardiology over the years. He was doing well until 3 weeks ago when he started having exertional chest pain. He states that his symptoms got worse in last few days associated with mild shortness of breath and unsteadiness. Denied palpitations, dizziness or syncope. Patient has history of iron deficiency anemia and takes iron supplements at home. He denies overt bleeding at present. He states that he had GI workup done in the past. EKG at presentation on my personal interpretation shows sinus rhythm, old anteroseptal infarct. No evolving significant ST-T changes on follow-up EKGs. Serial troponins negative. NT proBNP elevated at is 2630. Patient is anemic with hemoglobin of 9.4 at presentation. Chest x-ray showed mild bibasilar haziness and interstitial prominence. Review of old records showed negative MPI and normal LVEF from 04/27/2016. Review of Systems Review of Systems: General: Positive for fatigue Psychological: Negative for anxiety, depression Ophthalmic: negative for loss of vision ENT: Negative for epistaxis, headaches Allergy and immunology: Negative for hives, nasal congestion Hematologic and lymphatic: Negative for overt bleeding problems Endocrine: Negative for hot flashes, palpitations Respiratory: Negative for cough, hemoptysis Cardiovascular: Positive for exertional chest pain, dyspnea Gastrointestinal: Negative for abdominal pain, nausea, vomiting, hematochezia Musculoskeletal: Negative for myalgia, joint pains Neurological: Negative for weakness Dermatological: Negative for rash, skin discoloration PMFSH Past Medical History Medical History Diastolic dysfunction History of tobacco use Asbestosis Iron deficiency anemia H. pylori duodenitis Hyperlipidemia Hypertension Coronary artery disease COPD (chronic obstructive pulmonary disease) Kidney stones Diastolic heart failure Echocardiogram April 2016: Normal ejection fraction of 65%, grade 2 diastolic dysfunction Surgical History Surgical History History of hernia repair Right inguinal hernia repair x2 with most recent repair July 2015 History of tonsillectomy H/O cataract extraction History of partial thyroidectomy (~01/2011) History of heart artery stent (~2010) Family History Family History Mother Heart disease Father Heart disease Melanoma Social History Social History Social History: He lives in [place] with his of 64 years. They had 2 sons. He is retired from the [employer]. He is still independent in activities of daily living and ambulates without assistance. He still drives. He had a distant history of 20 pack per year smoking history but quit smoking in . Primary care physician: Dr. Iam Sabillon Code status: DNR/DNI per patient request Surrogate decision maker: Tonia () Smoking packs per day: 1 Smoking cigarettes per day: 20.0 Years smoked: 45 Smoking pack-years: 45.00 Smoking status: Former smoker Tobacco type: cigarettes Second hand tobacco smoke exposure: No Alcohol intake: never Substance use: never Substance use type: does not use Do You Feel Safe in your Home?: Yes Lack of Transportation: No Lack of Food: Never True Current Housing: I Have Housing Concerned About Future Housing: No Difficulty Paying Gas/Electric Bills: No Difficulty Paying for Meds: No Currently Unemployed: No Education: High School Diploma/GED Difficulty w/ Childcare or Family Care: No Living arrangements: with family Gender identity (if verbalized by the patient): Male Sexual Orientation (if Verbalized by the Patient): Straight or Heterosexual Spiritual care concerns: No Meds Home Medications and Allergies Home Medications ?Medication ?Instructions ?Recorded ?Confirmed ?Type cholecalciferol (vitamin D3) 25 25 mcg PO DAILY 09/17/20 10/04/24 History mcg (1,000 unit) capsule vitamin E 200 unit capsule 200 unit PO DAILY 09/17/20 10/04/24 History aspirin 81 mg tablet 81 mg PO DAILY 11/21/20 10/04/24 History prevagen 1 tablet PO DAILY 03/21/24 10/04/24 History atorvastatin 20 mg tablet See Rx Instructions .Route 04/14/24 10/04/24 Rx .COMPLEX #90 tabs lisinopril 10 mg tablet See Rx Instructions .Route 06/05/24 10/04/24 Rx .COMPLEX #90 tabs tamsulosin 0.4 mg capsule 0.4 mg PO QHS #90 caps 06/05/24 10/04/24 Rx ferrous sulfate 325 mg (65 mg 325 mg PO DAILY 10/04/24 10/04/24 History iron) tablet vit C 250 mg-vit E 90 mg-zinc 40 1 tablet PO BID 10/04/24 10/04/24 History mg-copper 1 [id number] capsule (PreserVision AREDS-2) Allergies Allergy/AdvReac Type Severity Reaction Status Date / Time No Known Allergies Allergy Unknown Verified 10/04/24 18:11 Vital Signs Vital Signs - 24 hr 10/04/24 11:08 10/04/24 15:00 10/04/24 16:01 Temperature 36.7 C Pulse Rate 78 67 Respiratory Rate 20 18 Blood Pressure 149/70 H 134/68 Pulse Oximetry 98 100 Oxygen Delivery Room Air Room Air 10/04/24 16:57 10/04/24 20:00 10/04/24 20:00 Temperature Pulse Rate 85 81 Respiratory Rate 16 Blood Pressure 134/67 Pulse Oximetry 95 95 Oxygen Delivery Room Air 10/04/24 22:00 10/05/24 00:00 10/05/24 04:00 Temperature 36.7 C Pulse Rate 69 62 79 Respiratory Rate 18 Blood Pressure 109/59 L Pulse Oximetry 95 Oxygen Delivery 10/05/24 06:00 Temperature 36.7 C Pulse Rate 81 Respiratory Rate 18 Blood Pressure 125/58 L Pulse Oximetry 94 Oxygen Delivery Exam Narrative: PHYSICAL EXAMINATION: GENERAL: Elderly male, appears good for his age; Alert, oriented, no acute distress MENTAL STATUS: affect appropriate to mood EYES: Extraocular movements intact, pallor EARS: External ears appear normal, hearing grossly normal NOSE: Normal and patent, no discharge MOUTH: Mucous membranes moist, tongue normal NECK: Supple, no JVD CHEST: Good respiratory effort, clear to auscultation HEART: Normal rate, regular rhythm, normal S1 and S2 ABDOMEN: Soft, nontender NEUROLOGICAL: Alert, oriented, normal speech, no gross motor deficits MUSCULOSKELETAL: No major deformity, no amputation EXTREMITIES: No pedal edema, no clubbing, no cyanosis SKIN: no rash on the exposed area, no cyanosis PSYCHIATRIC: Normal mood, appropriate affect Results Labs and Meds 10/05/24 08:19 10/05/24 08:19 Lab results: Cardiac Enzymes 10/04/24 10/04/24 10/04/24 Range/Units 12:56 14:09 16:56 AST 19 (17-59) U/L Troponin I 0.013 < 0.012 < 0.012 (0.000-0.034) ng/mL 10/05/24 Range/Units 08:19 AST 17 (17-59) U/L Troponin I (0.000-0.034) ng/mL Coagulation 10/04/24 Range/Units 12:57 PT 14.3 (11.1-14.7) Seconds APTT 29.1 (22.3-36.8) Seconds CBC 10/04/24 10/05/24 Range/Units 12:57 08:19 WBC 7.5 4.5 (4.5-10.0) K/mm3 RBC 4.02 L 3.64 L (4.6-6.20) M/mm3 Hgb 9.4 L D 8.5 L (14.0-18.0) g/dL Hct 33.0 L 29.8 L (42.0-52.0) % Plt Count 287 252 (150-375) k/mm3 Lymph # (Auto) 1.32 (0.9-3.2) K/mm3 [place] # (Auto) 0.9 H (0.1-0.6) K/mm3 Eos # (Auto) 0.2 (0-0.3) K/mm3 Baso # (Auto) 0.1 (0.0-0.1) K/mm3 Comprehensive Metabolic Panel 10/04/24 10/05/24 Range/Units 12:56 08:19 Sodium 138 137 (137-145) mmol/L Potassium 4.0 4.1 (3.4-5.0) mmol/L Chloride 103 106 (98-107) mmol/L Carbon Dioxide 26 21 L (22-30) mmol/L BUN 12 14 (9-20) mg/dL Creatinine 1.02 1.07 (0.7-1.3) mg/dL Glucose 84 76 (65-110) mg/dL Calcium 9.2 8.6 (8.4-10.2) mg/dL AST 19 17 (17-59) U/L ALT 16 13 (6-50) U/L Alkaline Phosphatase 79 64 (38-126) U/L Total Protein 7.0 6.0 L (6.3-8.2) g/dL Albumin 4.2 3.3 L (3.5-5.1) g/dL Intake and Output 10/04/24 10/05/24 10/05/24 23:59 07:59 15:59 Output Total 700 Balance -700 Output: Urine 700 Patient Weight 10/05/24 23:59 Weight 74.8 kg
[2024-10-05 10:11] LABS: Cholesterol 120 mg/dL (0-200); HDL Direct 40 mg/dL; Triglycerides 134 mg/dL (<150)
[2024-10-05 10:22] LABS: LDL Cholesterol Direct 58 mg/dL
[2024-10-05] MEDS: VITAMIN E 100 UNIT CAPSULE 200 UNIT PO (13:21)
[2024-10-05] MEDS: TAMSULOSIN HCL 0.4 MG CAPSULE PO (20:30)
[2024-10-06] VITALS (12 sets, daily range): BP systolic 91–129; BP diastolic 48–72; PULSE 71–101; RESP 18–20; TEMP 35.8–36.7; O2SAT 95–100
--- NOTE | 2024-10-06 | ECHO_ITS ---
Patient Info Name: Pranay Casanova Age: 84 years : 1940 Gender: Male Ht: 70 in Wt: 164 lbs BSA: 1.92 m2 HR: 102 bpm BP: 122 / 63 mmHg Technical Quality: Good Exam Date: 10/06/2024 1:29 PM Exam Location: Echo Lab Patient Status: Inpatient Admit Date: 10/05/2024 Staff Ordering Physician: Marcos Donohue MD [employer] Strategist: Tatyana Jacinto RDCS Attending Provider: Carlos A Villafuerte MD Exam Type: CA echo doppler color flow Study Info Indications - CAD - Angina Complete two-dimensional, color flow and Doppler transthoracic echocardiogram is performed. Summary 1. Complete two-dimensional, color flow and Doppler transthoracic echocardiogram is performed. 2. There is normal biventricular size and systolic function. 3. There is moderate mitral regurgitation. Left Ventricle The left ventricle is normal in size with moderately reduced systolic function. Right Ventricle The right ventricle is normal size and systolic function. Left Atria The left atrium is normal size. Atrial Septum The atrial septum is grossly normal. Aortic Valve The aortic valve is trileaflet and sclerotic but opens well. There is trace aortic regurgitation. Pulmonic Valve The pulmonic valve is not visualized. Mitral Valve The mitral valve opens well. There is moderate mitral regurgitation. Tricuspid Valve The tricuspid valve is normal. There is trace tricuspid regurgitation. Pericardium/Pleural Pericardium is normal in appearance with no evidence for significant pericardial effusion. Inferior Vena Cava Normal inferior vena cava with >50% collapse upon inspiration consistent with normal right atrial pressure, 3 mmHg. Aorta The aortic root at the level of the sinus of Valsalva measures 3.5 cm in diameter. Left Ventricular Outflow Tract Name Value Normal LVOT 2D LVOT Diameter 2.2 cm LVOT Doppler LVOT Peak Gradient 3 mmHg LVOT Mean Gradient 2 mmHg LVOT VTI 17 cm LVOT VTI/AV VTI Ratio 0.8 LVOT Stroke Volume 63 ml LVOT CO 14.4 l/min LVOT CI 7.5 l/min/m2 Mitral Valve Name Value Normal MV Doppler MV Decel Summers 494 cm/s2 MV PHT 42 ms MV Area (PHT) 5.3 cm2 4.0-5.0 MV Diastolic Function MV E Peak Velocity 71 cm/s MV A Peak Velocity 107 cm/s MV E/A 0.7 MV Decel Time 144 ms MV Annular TDI MV E/e' (Septal) 13.7 <=8.0 MV E/e' (Lateral) 9.9 <=8.0 MV E/e' (Average) 11.8 Tricuspid Valve Name Value Normal TV Regurgitation Doppler TR Peak Velocity 226 cm/s TR Peak Gradient 20 mmHg Estimated PAP/RSVP RA Pressure 3 mmHg <=5 PA Systolic Pressure 23 mmHg <36 RV Systolic Pressure 23 mmHg <36 Aorta Name Value Normal Ascending Aorta Ao Root Diameter (MM) 3.6 cm Ao Root Diam Index (MM) 1.9 cm/m2 Aortic Valve Name Value Normal AV Doppler AV Peak Velocity 117 cm/s AV Peak Gradient 6 mmHg AV Mean Gradient 4 mmHg AV VTI 22 cm AV Area (Cont Eq VTI) 2.9 cm2 >=3.0 AV Area (Cont Eq Kavin) 2.7 cm2 AV Regurgitation 2D LVOT Area 3.7 cm2 AV Regurgitation Doppler AR Decel Time 2,773 ms AR Decel Summers 99 cm/s2 AR PHT 804 ms Ventricles Name Value Normal LV Dimensions 2D/MM IVS Diastolic Thickness (2D) 1.1 cm 0.6-1.0 LVID Diastole (2D) 4.6 cm 4.2-5.8 LVIW Diastolic Thickness (2D) 1.1 cm 0.6-1.0 LVID Systole (2D) 2.9 cm 2.5-4.0 LVOT Diameter 2.2 cm LV Mass (2D Cubed) 180.60 g 88.00-224.00 LV Mass Index (2D Cubed) 94 g/m2 49-115 Relative Wall Thickness (2D) 0.46 LV Fractional Shortening/Ejection Fraction 2D/MM LV Fractional Shortening (2D) 38 % 25-43 LV EF (2D Teicholz) 68 % 52-72 LV Diastolic Volume (4C MOD) 121 ml LV EF (4C MOD) 63 % LV Diastolic Volume (2C MOD) 106 ml LV EF (2C MOD) 52 % LV Diastolic Volume (BP MOD) 114 ml 62-150 LV Diastolic Volume Index (BP MOD) 59 ml/m2 34-74 LV Systolic Volume (BP MOD) 49 ml 21-61 LV Systolic Volume Index (BP MOD) 25 ml/m2 11-31 LV EF (BP MOD) 57 % 52-72 LV Diastolic Length (4C) 7.6 cm LV Systolic Length (4C) 6.5 cm LV Stroke Volume (4C MOD) 76 ml RV Dimensions 2D/MM RVID Diastole (2D) 3.8 cm 2.5-3.5 Atria Name Value Normal LA Dimensions LA Dimension (MM) 2.7 cm 3.0-4.1 LA Volume (4C A-L) 52 ml LA Volume (BP A-L) 53 ml RA Dimensions RA Area (4C) 18.2 cm2 <=18.0 Report Signatures
[2024-10-06 04:46] LABS: Hematocrit 29.5 % (42.0-52.0); Hemoglobin 8.4 g/dL (14.0-18.0); Mean Corpuscular HGB Conc 28.5 g/dl (32-36); Mean Corpuscular Hemoglobin 23.1 pg (26-34); Mean Platelet Volume 10.6 fl (7.4-10.4); Platelet Count Result 246 k/mm3 (150-375); Red Blood Count 3.64 M/mm3 (4.6-6.20); Red Cell Distribution Width 14.9 % (11.5-14.5)
[2024-10-06 04:55] LABS: Alanine Aminotransferase 12 U/L (6-50); Albumin Level 3.3 g/dL (3.5-5.1); Alkaline Phosphatase 62 U/L (38-126); Anion Gap 5 mmol/L (4-12); Aspartate Amino Transferase 18 U/L (17-59); Bilirubin,Total 0.4 mg/dL (0.2-1.3); Blood Urea Nitrogen 16 mg/dL (9-20); Calcium 8.7 mg/dL (8.4-10.2); Carbon Dioxide 28 mmol/L (22-30); Chloride 104 mmol/L (98-107); Estimated CRCL calculation 45 ml/min; Estimated Glomerular Filt Rate > 60; Glucose 88 mg/dL (65-110); Potassium 3.9 mmol/L (3.4-5.0); Sodium 137 mmol/L (137-145)
[2024-10-06] MEDS: PANTOPRAZOLE 40 MG TABLET PO (08:23)
[2024-10-06] MEDS: FERROUS SULFATE 325 MG TABLET DR BY MOUTH ×3 (08:23→17:28)
[2024-10-06] MEDS: ATORVASTATIN 20 MG TABLET PO (08:23)
[2024-10-06] MEDS: OPTI-GEN TAB 1 TABLET PO ×2 (08:23→17:28)
[2024-10-06] MEDS: CHOLECALCIFEROL 1,000 UNITS TABLET 1000 UNITS PO (08:23)
[2024-10-06] MEDS: ASPIRIN 81 MG ENTERIC TABLET PO (08:23)
[2024-10-06] MEDS: lisinopriL 10 MG TABLET PO (08:24)
[2024-10-06] MEDS: VITAMIN E 100 UNIT CAPSULE 200 UNIT PO (08:24)
[2024-10-06 09:56] LABS: Iron 22 ug/dL (49-181)
--- NOTE | 2024-10-06 10:00 | P.PNCA_ITS ---
Progress Note: A&P Assessment and Plan (1) Angina of effort: Code(s): I20.89 - Other forms of angina pectoris Status: Acute Assessment and Plan: 84-year-old male with CAD, history of remote PCI/stenting in 2000 at [facility] (intervention report not available) in the setting of angina, hypertension, dyslipidemia, ?peptic ulcer disease, iron deficiency anemia. Patient presented to hospital with about 3 week history of exertional chest pain consistent with angina. No acute ST segment abnormality on EKG. Serial troponins negative. -patient has known CAD, and remote history of PCI/stenting. Patient's presenting symptomatology is concerning for obstructive CAD, although his anemia could be contributing to his symptoms as well. Patient is DNR status but does want further ischemic evaluation. He does not wish to change his DNR status for invasive evaluation, therefore he underwent lexiscan stress test this morning. 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 He did have chest discomfort which resolved within 10 minutes of lexiscan administration. Blood pressure, O2, and HR stable upon termination of the test and he was asymptomatic at time of test end. Images are pending but based on EKG changes during the test would anticipate significant ischemic burden. If this is the situation, we will discuss possibility of invasive evaluation of his coronary arteries if he is agreeable to change his code status from DNR. If not, medical management will be pursued. Check echocardiogram Doppler to assess LV function and rule out any major structural heart disease. Patient may continue on aspirin and statin for now. Telemetry monitoring. Subjective Date/time seen: 10/06/24 10:00 Interval history: Cardiology follow up visit Patient seen and examined in the cardiac stress lab where he is undergoing nuclear stress test. Prior to the test he was asymptomatic. He developed central chest tightness, nausea and reported not feeling well but was unable to describe symptoms. His blood pressure dropped and he appeared to be on the verge of losing consciousness, therefore a rapid response was called. Symptoms reesolved and blood pressure improved with fluid administration and elevation of his legs. Review of Systems Review of Systems: General: Positive for fatigue Psychological: Negative for anxiety, depression Ophthalmic: negative for loss of vision ENT: Negative for epistaxis, headaches Allergy and immunology: Negative for hives, nasal congestion Hematologic and lymphatic: Negative for overt bleeding problems Endocrine: Negative for hot flashes, palpitations Respiratory: Negative for cough, hemoptysis Cardiovascular: Positive for exertional chest pain, dyspnea Gastrointestinal: Negative for abdominal pain, nausea, vomiting, hematochezia Musculoskeletal: Negative for myalgia, joint pains Neurological: Negative for weakness Dermatological: Negative for rash, skin discoloration Exam Narrative: PHYSICAL EXAMINATION: GENERAL: Elderly male, appears good for his age; Alert, oriented, no acute distress MENTAL STATUS: affect appropriate to mood EYES: Extraocular movements intact, pallor EARS: External ears appear normal, hearing grossly normal NOSE: Normal and patent, no discharge MOUTH: Mucous membranes moist, tongue normal NECK: Supple, no JVD CHEST: Good respiratory effort, clear to auscultation HEART: Normal rate, regular rhythm, normal S1 and S2 ABDOMEN: Soft, nontender NEUROLOGICAL: Alert, oriented, normal speech, no gross motor deficits MUSCULOSKELETAL: No major deformity, no amputation EXTREMITIES: No pedal edema, no clubbing, no cyanosis SKIN: no rash on the exposed area, no cyanosis PSYCHIATRIC: Normal mood, appropriate affect Objective Data Vital Signs Vital Signs: Vital Signs - 24 hr 10/05/24 12:00 10/05/24 14:00 10/05/24 15:38 Temperature 36.8 C Pulse Rate 68 77 Respiratory Rate 18 Blood Pressure 100/54 L Pulse Oximetry 95 94 Oxygen Delivery Room Air 10/05/24 16:00 10/05/24 20:00 10/05/24 20:00 Temperature Pulse Rate 90 79 Respiratory Rate Blood Pressure Pulse Oximetry Oxygen Delivery Room Air 10/05/24 22:59 10/06/24 00:00 10/06/24 04:00 Temperature 36.3 C L Pulse Rate 72 75 71 Respiratory Rate 16 Blood Pressure 122/63 Pulse Oximetry 95 Oxygen Delivery Intake/Output Intake/Output: Intake & Output 10/03/24 10/04/24 10/05/24 10/06/24 23:59 23:59 23:59 23:59 Intake Total 1170 Output Total 700 Balance 470 Meds/Results Medications: Active Medications Generic Name Dose Route Start Last Admin Trade Name Freq PRN Reason Stop Dose Admin Acetaminophen 650 mg 10/04/24 23:48 10/05/24 00:10 Acetaminophen 325 Mg Tablet PO 650 mg Q6H PRN Administration Mild Pain (1-3) or Fever Aspirin 81 mg 10/05/24 09:00 10/06/24 08:23 Aspirin 81 Mg Enteric Tablet PO 81 mg QAM [facility] Administration Atorvastatin Calcium 20 mg 10/04/24 23:15 10/06/24 08:23 Atorvastatin 20 Mg Tablet PO 20 mg DAILY EDMOND Administration Ferrous Sulfate 325 mg 10/06/24 13:00 Ferrous Sulfate [address] BY MOUTH TID EDMOND Furosemide 20 mg 10/05/24 09:00 10/06/24 08:20 Furosemide Inj 40 Mg/4 Ml Vial IV PUSH Not Given BID EDMOND Lisinopril 10 mg 10/05/24 09:00 10/06/24 08:24 Lisinopril 10 Mg Tablet PO 10 mg DAILY EDMOND Administration Multivitamins/Minerals 1 tablet 10/05/24 09:00 10/06/24 08:23 Opti-Gen Tab PO 1 tablet BID EDMOND Administration Nitroglycerin 0.4 mg 10/04/24 17:12 Nitroglycerin Sl 0.4 Mg Tablet SUBLINGUAL Q5MIN PRN Chest Pain Pantoprazole Sodium 40 mg 10/05/24 09:00 10/06/24 08:23 Pantoprazole 40 Mg Tablet PO 40 mg QAM [facility] Administration Perflutren Lipid Microsphere 0 ml 10/04/24 16:00 Perflutren Lipid Microspheres 1.5 Ml Vial Diluted To 10 Ml Total Volume IV PUSH 10/07/24 16:01 ONCE PRN adequate visualization Protocol Perflutren Lipid Microsphere 0 ml 10/05/24 10:10 Perflutren Lipid Microspheres 1.5 Ml Vial Diluted To 10 Ml Total Volume IV PUSH 10/08/24 10:10 ONCE PRN adequate visualization Protocol Tamsulosin HCl 0.4 mg 10/05/24 21:00 10/05/24 20:30 Tamsulosin Hcl 0.4 Mg Capsule PO 0.4 mg QHS [facility] Administration Vitamin D 1,000 units 10/05/24 09:00 10/06/24 08:23 Cholecalciferol 1,000 Units Tablet PO 1,000 units DAILY EDMOND Administration Vitamin E 200 unit 10/05/24 09:00 10/06/24 08:24 Vitamin E 100 Unit Capsule PO 200 unit QAM [facility] Administration Radiology Results: ITS Impressions Chest X-Ray 10/04/24 12:23 Impression: Mild bibasilar haziness, as detailed above. Correlate for mild pulmonary edema, infection, or possibly chronic changes. Labs Labs: Laboratory Results - last 24 hr 10/05/24 10/06/24 08:17 04:30 WBC 5.0 RBC 3.64 L Hgb 8.4 L Hct 29.5 L MCV 81.0 MCH 23.1 L MCHC 28.5 L RDW 14.9 H Plt Count 246 MPV 10.6 H Sodium 137 Potassium 3.9 Chloride 104 Carbon Dioxide 28 Anion Gap 5 BUN 16 Creatinine 1.10 Estim Creat Clear Calc 45 Estimated GFR > 60 Glucose 88 Calcium 8.7 Iron 22 L Total Bilirubin 0.4 AST 18 ALT 12 Alkaline Phosphatase 62 Total Protein 6.0 L Albumin 3.3 L Triglycerides 134 Cholesterol 120 LDL Cholesterol Direct 58 HDL Direct 40 Quality VTE Prophylaxis VTE prophylaxis: mechanical ordered
[2024-10-06 10:08] LABS: Percent Iron Saturation 6 % (20-50)
--- NOTE | 2024-10-06 10:08 | EST_ITS ---
Patient Info Name: Pranay Casanova Age: 84 years : 1940 Gender: Male Ht: 70 in Wt: 164 lbs BSA: 1.92 m2 HR: 88 bpm BP: 129 / 71 mmHg Exam Date: 10/06/2024 10:48 AM Exam Location: Echo Lab Patient Status: Inpatient Admit Date: 10/05/2024 Staff Ordering Physician: Marcos Donohue MD Attending Provider: Carlos A Villafuerte MD Exercise Technologist: amy neil Exam Type: CA stress valentine w NM Study Info Indications I20.8 - Other forms of angina pectoris A regadenoson stress test was performed. Summary 1. Abnormal ST segment depression consistent with myocardial ischemia. 2. Please correlate with nuclear medicine images, reported separately. Protocol: Lexiscan Stress ECG Details Stage: REST Duration (min): 0 min : 13 sec HR (bpm): 88 SBP (mmHg): --- DBP (mmHg): --- Stage: REST Duration (min): 5 min : 25 sec HR (bpm): 90 SBP (mmHg): 129 DBP (mmHg): 71 Stage: STAGE 1 Duration (min): 1 min : 0 sec HR (bpm): 96 SBP (mmHg): 127 DBP (mmHg): 71 Stage: RECOVERY Duration (min): 1 min : 0 sec HR (bpm): 99 SBP (mmHg): 127 DBP (mmHg): 71 Stage: RECOVERY Duration (min): 2 min : 0 sec HR (bpm): 95 SBP (mmHg): 127 DBP (mmHg): 71 Stage: RECOVERY Duration (min): 3 min : 0 sec HR (bpm): 87 SBP (mmHg): 82 DBP (mmHg): 61 Stage: RECOVERY Duration (min): 4 min : 0 sec HR (bpm): 84 SBP (mmHg): 82 DBP (mmHg): 61 Stage: RECOVERY Duration (min): 5 min : 0 sec HR (bpm): 76 SBP (mmHg): 109 DBP (mmHg): 56 Stage: RECOVERY Duration (min): 6 min : 0 sec HR (bpm): 68 SBP (mmHg): 109 DBP (mmHg): 56 Stage: RECOVERY Duration (min): 7 min : 0 sec HR (bpm): 69 SBP (mmHg): 109 DBP (mmHg): 56 Stage: RECOVERY Duration (min): 8 min : 0 sec HR (bpm): 73 SBP (mmHg): 73 DBP (mmHg): 43 Stage: RECOVERY Duration (min): 9 min : 0 sec HR (bpm): 78 SBP (mmHg): 91 DBP (mmHg): 48 Stage: RECOVERY Duration (min): 10 min : 0 sec HR (bpm): 79 SBP (mmHg): 91 DBP (mmHg): 48 Stage: RECOVERY Duration (min): 11 min : 0 sec HR (bpm): 81 SBP (mmHg): 105 DBP (mmHg): 61 Stage: RECOVERY Duration (min): 12 min : 0 sec HR (bpm): 84 SBP (mmHg): 105 DBP (mmHg): 61 Stage: RECOVERY Duration (min): 13 min : 0 sec HR (bpm): 80 SBP (mmHg): 111 DBP (mmHg): 64 Stage: RECOVERY Duration (min): 14 min : 0 sec HR (bpm): 81 SBP (mmHg): 111 DBP (mmHg): 64 Stage: RECOVERY Duration (min): 15 min : 0 sec HR (bpm): 79 SBP (mmHg): 113 DBP (mmHg): 65 Stage: RECOVERY Duration (min): 16 min : 0 sec HR (bpm): 81 SBP (mmHg): 113 DBP (mmHg): 65 Stage: RECOVERY Duration (min): 17 min : 0 sec HR (bpm): 82 SBP (mmHg): 115 DBP (mmHg): 66 Stage: RECOVERY Duration (min): 18 min : 0 sec HR (bpm): 81 SBP (mmHg): 115 DBP (mmHg): 66 Stage: RECOVERY Duration (min): 19 min : 0 sec HR (bpm): 80 SBP (mmHg): 112 DBP (mmHg): 66 Stage: RECOVERY Duration (min): 20 min : 0 sec HR (bpm): 81 SBP (mmHg): 112 DBP (mmHg): 66 Stage: RECOVERY Duration (min): 21 min : 0 sec HR (bpm): 83 SBP (mmHg): 119 DBP (mmHg): 68 Stage: RECOVERY Duration (min): 21 min : 24 sec HR (bpm): 81 SBP (mmHg): 119 DBP (mmHg): 68 Rest HR: 90 bpm Peak HR: 105 bpm Rest Sys BP: 129 mmHg Peak Sys BP: 127 mmHg Max Pred HR: 135 bpm % Max Pred HR: 78 % Target HR: 115 bpm Max RPP: 13,335 bpm*mmHg Total Time: 1 min : 0 sec Rest Deleon BP: 71 mmHg Peak Deleon BP: 71 mmHg Total Dose: 0.4 mg Resting ECG Sinus rhythm with a ventricular rate of 90 beats per minute. No ischemic ST-T wave changes. Left anterior fascicular block. Rare PVC. Rare PAC. Stress ECG Sinus rhythm. T-wave inversions from V2-V6 that evolved into [address] depressions in leads V5-6 indicating ischemia. During recovery, he also developed [address] depressions that are downsloping in leads II, III, and AVF. Occasional premature ventricular contractions. Arrhythmias Occasional PACs. Occasional PVCs. Report Signatures
--- NOTE | 2024-10-06 10:16 | P.CONGI_ITS ---
<Statement entered by Raul Perez MD - 10/06/24 16:57> I, Raul Perez MD, have provided a substantive portion of the care of this patient and discussed the patient with my Nurse Practitioner. I have reviewed any new relevant radiographic and laboratory results including medications. I agree with her documentation as noted below.?I personally performed the medical decision making and much of the history and exam for this encounter. 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 Here with chest pain after walking down the stairs, denies overt gib, hgb 8. No need to repeat gi work up, management by primary team. Please call us if needed. Assessment and Plan Assessment and plan (1) Symptomatic anemia: Code(s): D64.9 - Anemia, unspecified <Mary Ann Burnett APRN - Last Filed: 10/06/24 12:50> Status: Acute <Mary Ann Burnett APRN - Last Filed: 10/06/24 12:50> (2) Iron deficiency: Code(s): E61.1 - Iron deficiency <Mary Ann Burnett APRN - Last Filed: 10/06/24 12:50> Status: Acute <Mary Ann Burnett APRN - Last Filed: 10/06/24 12:50> Assessment and Plan: 1. Anemia of chronic disease/iron deficiency: EGD, colonoscopy and capsule done in 2021. Colonoscopy Showed diverticulosis an EGD showed a mild Schatzki's ring, mild gastritis and mild duodenitis. Capsule endoscopy was normal. No findings on past GI workup to explain chronic intermittent anemia. He states that he had an extensive workup performed within the past few years by Dr. 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 Patient denies any signs of GI bleeding to include hematemesis, hematochezia, or melena. Patient declines to have any further testing performed as they are ready know what is wrong . * Primary care team to continue monitoring H&H and transfuse as needed to keep HGB > 7 * IV iron replacement per primary care team * continue Protonix 40 mg daily * no indication for endoscopic evaluation or further GI workup at this time unless patient starts having active GI bleeding Thank you very much for allowing me to share in the care of this very pleasant patient. This report may have been done utilizing a voice recognition system. Attempts have been made to correct errors. However, there may be uncorrected grammatical, spelling, and recognition errors present. <Mary Ann Burnett APRN - Last Filed: 10/06/24 12:50> GI Consult Note Consult date/time: 10/06/24 10:16 <Mary Ann Burnett APRN - Last Filed: 10/06/24 12:50> Reason for consult: Anemia <Mary Ann Burnett APRN - Last Filed: 10/06/24 12:50> HPI: Pranay Casanova is a 84 year old male A history of CHF, CKD, COPD, CAD with cardiac stent placement x1, HLD, asbestosis, right inguinal hernia repair x2, 9 partial hysterectomy. Patient presented to the ER on the with complaints of chest pain and exertional dyspnea. GI has been consulted for anemia. Patient was seen with his son at his bedside throughout the entire visit. Patient had a normal cardiac stress test in 2016 but has not been followed by cardiology over the past few years. H/H stable but low since admission with Hgb 8 and Hct 30. Patient has had an extensive workup by GI and hematology over the past few years. GI work up including EGD, colonoscopy and capsule. EGD showed gastritis and duodenitis but no findings to explain anemia. Patient states that Dr. Us stated that his chronic anemia is secondary to his known asbestosis and that he will likely need blood transfusions and IV iron replacement from time to time throughout his life along with supplemental oxygen. Patient denies any GI complaints. He has occasional mild constipation secondary to oral iron but he states he has it well managed. Denies abdominal pain, nausea, vomiting, bloating, odynophagia, dysphagia, reflux, regurgitation, early satiety, appetite or weight loss. The use of medications he is typically having a formed non urgent bowel movement every 1-2 days. Denies diarrhea, hematochezia, or melena. Denies NSAID, aspirin or anticoag use. ENDOSCOPY HISTORY: EGD: 03/14/[address] Campos for [facility] Findings: mild Schatzki's ring was present at the GE junction. The Schatzki's ring appeared at dove 37 cm from the incisors. Multiple cold forceps biopsies were taken Mild diffuse gastritis seen in the body and stomach In the antrum. The gastritis had erythematous and edematous changes. Cold forceps biopsies taken Mild localized duodenitis seen in duodenal bulb Bx results: Esophagus, Schatzki's ring, biopsy: - Squamocolumnar mucosa with intraepithelial neutrophils - No intestinal metaplasia - See comment Sections show multiple very small fragments of squamous and columnar mucosa, both of which have intraepithelial neutrophils. There is some parakeratosis on the esophageal epithelium; there are no obvious eosinophils. There are no goblet cells in the columnar part. To exclude fungi and H. pylori as possible etiologies, special and immunohistochemical stains for GMS and H. pylori were performed (block A1, with appropriately reactive controls) and both are negative for obvious organisms. The findings are compatible with gastroesophageal reflux disease. COLONOSCOPY: 03/14/[address] Campos for [facility] Findings: multiple diverticula were present in the transverse colon, in the descending colon and sigmoid colon LABS AND STOOL STUDIES: Labs 10/06/2024 showed sodium 137, potassium 3.9, BUN 16, creatinine 1.10, GFR > 60 WBC is 5, HGB 8, HCT 30, MCV 81, platelets 246, INR 1.1 Total bilirubin 0.4, AST 18, ALT 12, alkaline phosphatase 62, calcium 8.7, albumin 3.38 and triglycerides 134 Total iron 22, TIBC 380, iron saturation pending IMAGING: CT abd/pelvis w/contrast 11/01/2022 Impression: Stable renal lesions, as detailed above, consistent with benign findings. Colonic diverticulosis CTA chest/abd/pelvis 11/20/2020: IMPRESSION: 1. No pulmonary embolism or other acute cardiopulmonary disease. 2. Severe emphysema. 3. No acute intra-abdominal/pelvic process. 4. Marked diverticulosis. 5. Prostatomegaly. <Mary Anncassidy Burnett APRN - Last Filed: 10/06/24 12:50> Review of Systems 2 Constitutional: Constitutional: Reports as per HPI, Reports fatigue and Reports lethargy <Mary Ann Burnett APRN - Last Filed: 10/06/24 12:50> ENT: Reports as per HPI <Mary Ann Burnett APRN - Last Filed: 10/06/24 12:50> Cardiovascular: Cardiovascular: Reports as per HPI, Denies chest pain and Denies dyspnea <Mary Ann Burnett APRN - Last Filed: 10/06/24 12:50> Respiratory: Respiratory: Denies cough, Reports dyspnea and Reports dyspnea on exertion <Mary Ann Burnett APRN - Last Filed: 10/06/24 12:50> Gastrointestinal: Gastrointestinal: Reports as per HPI <Mary Ann Burnett APRN Last Filed: 10/06/24 12:50> Musculoskeletal: Musculoskeletal: Reports as per HPI <Mary Ann Burnett APRN - Last Filed: 10/06/24 12:50> Integumentary/Breasts: Skin/Breast: Reports as per HPI <Mary Ann Burnett APRN - Last Filed: 10/06/24 12:50> Psychiatric: Psychiatric: Reports as per HPI <Mary Ann Burnett APRN Last Filed: 10/06/24 12:50> Endocrine: Endocrine: Reports no additional endocrine complaints <Mary Ann Burnett APRN - Last Filed: 10/06/24 12:50> Hematologic/Lymphatic: Hematologic/Lymphatic: Reports no additional hematologic/lymphatic complaints <Mary Ann Burnett APRN Last Filed: 10/06/24 12:50> PMFSH Past Medical History Medical History: Medical History Diastolic dysfunction History of tobacco use Asbestosis Iron deficiency anemia H. pylori duodenitis Hyperlipidemia Hypertension Coronary artery disease COPD (chronic obstructive pulmonary disease) Kidney stones Diastolic heart failure Echocardiogram April 2016: Normal ejection fraction of 65%, grade 2 diastolic dysfunction <Mary Ann Burnett APRN - Last Filed: 10/06/24 12:50> Surgical History Surgical History: Surgical History History of hernia repair Right inguinal hernia repair x2 with most recent repair July 2015 History of tonsillectomy H/O cataract extraction History of partial thyroidectomy (~01/2011) History of heart artery stent (~2010) <Mary Ann Burnett APRN - Last Filed: 10/06/24 12:50> Family History Family History: Family History Mother Heart disease Father Heart disease Melanoma <Mary Ann Burnett APRN - Last Filed: 10/06/24 12:50> Social History Social History: Social History Social History: He lives in [place] with his of 64 years. They had 2 sons. He is retired from the [employer]. He is still independent in activities of daily living and ambulates without assistance. He still drives. He had a distant history of 20 pack per year smoking history but quit smoking in . Primary care physician: Dr. Iam Sabillon Code status: DNR/DNI per patient request Surrogate decision maker: Tonia () Smoking packs per day: 1 Smoking cigarettes per day: 20.0 Years smoked: 45 Smoking pack-years: 45.00 Smoking status: Former smoker Tobacco type: cigarettes Second hand tobacco smoke exposure: No Alcohol intake: never Substance use: never Substance use type: does not use Do You Feel Safe in your Home?: Yes Lack of Transportation: No Lack of Food: Never True Current Housing: I Have Housing Concerned About Future Housing: No Difficulty Paying Gas/Electric Bills: No Difficulty Paying for Meds: No Currently Unemployed: No Education: High School Diploma/GED Difficulty w/ Childcare or Family Care: No Living arrangements: with family Gender identity (if verbalized by the patient): Male Sexual Orientation (if Verbalized by the Patient): Straight or Heterosexual Spiritual care concerns: No <Mary Ann Burnett APRN - Last Filed: 10/06/24 12:50> Meds Home Medications and Allergies Home medications: Home Medications ?Medication ?Instructions ?Recorded ?Confirmed ?Type cholecalciferol (vitamin D3) 25 25 mcg PO DAILY 09/17/20 10/04/24 History mcg (1,000 unit) capsule vitamin E 200 unit capsule 200 unit PO DAILY 09/17/20 10/04/24 History aspirin 81 mg tablet 81 mg PO DAILY 11/21/20 10/04/24 History prevagen 1 tablet PO DAILY 03/21/24 10/04/24 History atorvastatin 20 mg tablet See Rx Instructions .Route 04/14/24 10/04/24 Rx .COMPLEX #90 tabs lisinopril 10 mg tablet See Rx Instructions .Route 06/05/24 10/04/24 Rx .COMPLEX #90 tabs tamsulosin 0.4 mg capsule 0.4 mg PO QHS #90 caps 06/05/24 10/04/24 Rx ferrous sulfate 325 mg (65 mg 325 mg PO DAILY 10/04/24 10/04/24 History iron) tablet vit C 250 mg-vit E 90 mg-zinc 40 1 tablet PO BID 10/04/24 10/04/24 History mg-copper 1 [id number] capsule (PreserVision AREDS-2) <Mary Ann Burnett APRN - Last Filed: 10/06/24 12:50> Allergies/Adverse reactions: Allergies Allergy/AdvReac Type Severity Reaction Status Date / Time No Known Allergies Allergy Unknown Verified 10/04/24 18:11 <Mary Ann Burnett APRN - Last Filed: 10/06/24 12:50> Vital Signs Vital Signs - 24 hr 10/05/24 12:00 10/05/24 14:00 10/05/24 15:38 Temperature 98.3 F Pulse Rate 68 77 Respiratory Rate 18 Blood Pressure 100/54 L Pulse Oximetry 95 94 Oxygen Delivery Room Air 10/05/24 16:00 10/05/24 20:00 10/05/24 20:00 Temperature Pulse Rate 90 79 Respiratory Rate Blood Pressure Pulse Oximetry Oxygen Delivery Room Air 10/05/24 22:59 10/06/24 00:00 10/06/24 04:00 Temperature 97.3 F L Pulse Rate 72 75 71 Respiratory Rate 16 Blood Pressure 122/63 Pulse Oximetry 95 Oxygen Delivery 10/06/24 08:00 Temperature Pulse Rate Respiratory Rate Blood Pressure Pulse Oximetry Oxygen Delivery Room Air <Mary Ann Burnett APRN - Last Filed: 10/06/24 12:50> Exam 2 Const: General: cooperative, healthy appearing, comfortable, no acute distress and well developed <Mary Ann Burnett APRN - Last Filed: 10/06/24 12:50> Orientation/consciousness: oriented to person, oriented to place, oriented to time and patient oriented x3 <Mary Ann Burnett APRN - Last Filed: 10/06/24 12:50> HENMT: Head: normal to inspection, normocephalic and atraumatic <Mary Ann Burnett [facility] - Last Filed: 10/06/24 12:50> Mouth: Yes Normal oral and palatal mucosa present and Yes moist mucous membranes <Mary Anncassidy Burnett APRN - Last Filed: 10/06/24 12:50> Eyes: General: appearance normal, both eyes and all related structures < Mary Ann Burnett APRN - Last Filed: 10/06/24 12:50> Conjunctivae: conjunctivae normal <Mary Ann Burnett APRN - Last Filed: 10/06/24 12:50> Sclera: sclerae normal <Mary Ann Sergey Burnett [facility] - Last Filed: 10/06/24 12:50> Pupils: Equal, round and reactive pupils present <Mary Anncassidy Burnett APRN - Last Filed: 10/06/24 12:50> Neck: Neck: normal visual inspection <Mary Ann Burnett APRN - Last Filed: 10/06/24 12:50> Chest: Chest palpation & inspection: normal inspection of the chest < Mary Ann Burnett APRN - Last Filed: 10/06/24 12:50> Resp: Effort & Inspection: normal respiratory effort and able to speak in complete sentences <Mary Ann Burnett APRN - Last Filed: 10/06/24 12:50> Auscultation: clear to auscultation bilaterally <Mary Ann Burnett APRN - Last Filed: 10/06/24 12:50> Cardio: Jugular venous distension: no JVD <Mary Ann Burnett APRN - Last Filed: 10/06/24 12:50> Rate: regular rate <Mary Ann EscuderoMONAE ybarra - Last Filed: 10/06/24 12:50> Rhythm: regular rhythm <Mary Ann [facility] - Last Filed: 10/06/24 12:50> Heart sounds: S1 normal heart sound present and S2 normal heart sound present <Mary Ann [facility] - Last Filed: 10/06/24 12:50> GI: Inspection: normal to inspection <Mary Ann [facility] - Last Filed: 10/06/24 12:50> GI Palp: Yes Soft to palpation and Yes No hepatosplenomegaly present <Mary Ann [facility] - Last Filed: 10/06/24 12:50> Auscultation: normal bowel sounds <Mary Ann [facility] - Last Filed: 10/06/24 12:50> Rectal Exam: deferred <Mary Ann [facility] - Last Filed: 10/06/24 12:50> Skin: General skin exam: normal color and no rashes or lesions noted < Mary Ann [facility] - Last Filed: 10/06/24 12:50> Neuro: General: oriented to person, oriented to place, oriented to time and patient oriented x3 <Mary Ann [facility] - Last Filed: 10/06/24 12:50> Cranial nerves: Yes Equal, round and reactive pupils present <Mary Ann [facility] - Last Filed: 10/06/24 12:50> Speech: normal speech <Mary Ann EscuderoMONAE ybarra - Last Filed: 10/06/24 12:50> Extrem: General: normal to inspection and no clubbing, cyanosis or edema < Mary Ann Rincon MONAE Burnett - Last Filed: 10/06/24 12:50> Psych: Appearance: grossly normal and well kempt <Mary Ann Rincon RADHA BurnettN - Last Filed: 10/06/24 12:50> Affect: normal affect <Mary Ann Rincon RADHA BurnettN - Last Filed: 10/06/24 12:50> Results Labs CBC & Chem 7: 10/06/24 04:30 10/06/24 04:30 <Mary Ann Burnett APRN - Last Filed: 10/06/24 12:50> Labs: Short CBC 10/06/24 Range/Units 04:30 WBC 5.0 (4.5-10.0) K/mm3 Hgb 8.4 L (14.0-18.0) g/dL Hct 29.5 L (42.0-52.0) % Plt Count 246 (150-375) k/mm3 BMP 10/06/24 04:30 Sodium 137 Potassium 3.9 Chloride 104 Carbon Dioxide 28 BUN 16 Creatinine 1.10 Glucose 88 Calcium 8.7 Liver Function 10/06/24 Range/Units 04:30 Total Bilirubin 0.4 (0.2-1.3) mg/dL AST 18 (17-59) U/L ALT 12 (6-50) U/L Alkaline Phosphatase 62 (38-126) U/L Albumin 3.3 L (3.5-5.1) g/dL <Mary Ann Burnett APRN - Last Filed: 10/06/24 12:50>
[2024-10-06 11:25] LABS: Glucose Point of Care 91 mg/dl (65-105)
[2024-10-06] MEDS: polyethylene glycoL 3350 17 GM POWD.PACK PO (13:42)
--- NOTE | 2024-10-06 14:15 | P.PNIM_ITS ---
Progress Note: A&P Assessment and Plan (1) Chest pain, exertional: Code(s): R07.9 - Chest pain, unspecified Status: Acute Assessment and Plan: * EKG, initial: Sinus rhythm, rate 73, marked left axis deviation, anteroseptal MD of indeterminate age. Awaiting formal read. * EKG, repeat (1): No significant change compared to prior, awaiting formal read. * CXR: Mild bibasilar haziness, as detailed above. Correlate for mild pulmonary edema, infection, or possibly chronic changes. * Troponin x 3 negative * ASA 324 given -> 81 daily * SL nitro PRN * cardiology consulted, awaiting recs * update echo, suspicion for CHF exacerbation versus ACS * telemetry monitoring 10/05/24: * ACS vs stable angina vs CHF potential * Stress test? Will wait for cardiology's recommendation * Imdur? 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 No reversible ischemia. * Patient and family discussing intervention vs medical management * Move to IMU * Echo still pending (2) Diastolic dysfunction: Code(s): I51.89 - Other ill-defined heart diseases Status: Acute Assessment and Plan: * BNP 2630 * most recent echo (2020): Normal systolic function, estimated EF 65-70%, grade 1 diastolic dysfunction. See report for full details. * Echo pending * not currently on a diuretic, start Lasix 20 mg IV b.i.d. * monitor I&Os and daily weights * trend renal function * Cardiology consulted for further recommendations (3) Anemia: Qualifiers: Anemia type: unspecified type Qualified Code(s): D64.9 - Anemia, unspecified Code(s): D64.9 - Anemia, unspecified Status: Chronic Assessment and Plan: Patient is on a iron supplement daily, stool dark due to this. Denies any BRB per rectum. * Hgb 9.4, previously 14 on 11/15/2023 * Chronic FAREED has had previous blood transfusion * Could be contributing to patient's shortness of breath * will repeat iron studies * Hx of FAREED, continue home iron supplementation. * transfuse PRBC if Hgb <7 * No overt signs of GIB 10/06: * Follows Dr. duong * Will give Iron infusions * F/U scheduled in november (4) Hypertension: Qualifiers: Hypertension type: primary hypertension Qualified Code(s): I10 - Essential (primary) hypertension Code(s): I10 - Essential (primary) hypertension Status: Chronic Assessment and Plan: * chronic, currently 134/67 * continue home medications: Lisinopril * Reviewed monitor per unit protocol Plan Code status: DNR DVT prophylaxis: SCD Stress ulcer prophylaxis: Protonix 40 daily PT/OT notes: Disposition: Patient admitted to the medical unit on telemetry for evaluation of chest pain and exertional SOB moved to IMU Stress test positive intervention vs medical management pending family and patient discussing. Time Spent With Patient Time with patient: 15 - 25 minutes Subjective Date/time seen: 10/06/24 14:15 Interval history: Patient was admitted for shortness of breath worse with exertion, chest pain and chf exacerbation. 10/06/2024: Assumed Care Patient went for stress test today which resulted in a RR being called after patient per chart develop chest pain , SOB, nausea and hypotension likely vagal and stress test was stopped. 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 No reversible ischemia. Spoke with patient and son regarding findings and intervention vs medical management patient still unsure if he wants to be a full code for a cardiac cath. Will move him to IMU. Patient denying any CP at time of assessment. Review of Systems Review of Systems: All systems reviewed & are unremarkable except as noted in HPI and below Exam Const: General: comfortable and no acute distress Other: , male, nontoxic appearance HENMT: Face/Nose/Sinus: Normal nares present Mouth: Yes moist mucous membranes Eyes: General: appearance normal, both eyes and all related structures Sclera: sclerae normal Pupils: Equal, round and reactive pupils present EOM: EOMs intact bilaterally Neck: Neck: no JVD Resp: Effort & Inspection: normal respiratory effort Auscultation: clear to auscultation bilaterally and crackles (Scant to BLL) bilateral Cardio: Rate: regular rate Rhythm: regular rhythm Other: S1-S2 present without murmur, rub, ectopy Skin: General skin exam: normal color and no rashes or lesions noted Wounds: no wounds Neuro: General: gait normal Cranial nerves: Yes Equal, round and reactive pupils present Speech: normal speech Motor exam (neuro): 5/5 motor strength present throughout Sensory Exam: normal sensation Other: A&O x4 Extrem: General: normal to inspection and edema Other: 2+ pitting edema to BLE, symmetric. Psych: Mental Status: mental status grossly normal Affect: normal affect Other: Good insight and judgment, pleasant Objective Data Vital Signs Vital Signs: Vital Signs - 24 hr 10/05/24 15:38 10/05/24 16:00 10/05/24 20:00 Temperature Pulse Rate 90 Respiratory Rate Blood Pressure Pulse Oximetry 94 Oxygen Delivery Room Air Room Air Oxygen Flow Rate 10/05/24 20:00 10/05/24 22:59 10/06/24 00:00 Temperature 97.3 F L Pulse Rate 79 72 75 Respiratory Rate 16 Blood Pressure 122/63 Pulse Oximetry 95 Oxygen Delivery Oxygen Flow Rate 10/06/24 04:00 10/06/24 08:00 10/06/24 11:02 Temperature Pulse Rate 71 82 Respiratory Rate Blood Pressure 91/48 L Pulse Oximetry 95 Oxygen Delivery Room Air Nasal Cannula Oxygen Flow Rate 4 Intake/Output Intake/Output: Intake & Output 10/03/24 10/04/24 10/05/24 10/06/24 23:59 23:59 23:59 23:59 Intake Total 1170 Output Total 700 Balance 470 Meds/Results Medications: Active Medications Generic Name Dose Route Start Last Admin Trade Name Freq PRN Reason Stop Dose Admin Acetaminophen 650 mg 10/04/24 23:48 10/05/24 00:10 Acetaminophen 325 Mg Tablet PO 650 mg Q6H PRN Administration Mild Pain (1-3) or Fever Aspirin 81 mg 10/05/24 09:00 10/06/24 08:23 Aspirin 81 Mg Enteric Tablet PO 81 mg QAM [facility] Administration Atorvastatin Calcium 20 mg 10/04/24 23:15 10/06/24 08:23 Atorvastatin 20 Mg Tablet PO 20 mg DAILY [facility] Administration Ferrous Sulfate 325 mg 10/06/24 13:00 10/06/24 11:37 Ferrous Sulfate [address] BY MOUTH 325 mg TID [facility] Administration Furosemide 20 mg 10/05/24 09:00 10/06/24 08:20 Furosemide Inj 40 Mg/4 Ml Vial IV PUSH Not Given BID [facility] Lisinopril 10 mg 10/05/24 09:00 10/06/24 08:24 Lisinopril 10 Mg Tablet PO 10 mg DAILY [facility] Administration Multivitamins/Minerals 1 tablet 10/05/24 09:00 10/06/24 08:23 Opti-Gen Tab PO 1 tablet BID [facility] Administration Nitroglycerin 0.4 mg 10/04/24 17:12 Nitroglycerin Sl 0.4 Mg Tablet SUBLINGUAL Q5MIN PRN Chest Pain Pantoprazole Sodium 40 mg 10/05/24 09:00 10/06/24 08:23 Pantoprazole 40 Mg Tablet PO 40 mg QAM [facility] Administration Perflutren Lipid Microsphere 0 ml 10/04/24 16:00 Perflutren Lipid Microspheres 1.5 Ml Vial Diluted To 10 Ml Total Volume IV PUSH 10/07/24 16:01 ONCE PRN adequate visualization Protocol Perflutren Lipid Microsphere 0 ml 10/05/24 10:10 Perflutren Lipid Microspheres 1.5 Ml Vial Diluted To 10 Ml Total Volume IV PUSH 10/08/24 10:10 ONCE PRN adequate visualization Protocol Polyethylene Glycol 17 gm 10/06/24 12:05 10/06/24 13:42 Polyethylene Glycol 3350 17 Gm Powd.Pack PO 17 gm QAM [facility] Administration Tamsulosin HCl 0.4 mg 10/05/24 21:00 10/05/24 20:30 Tamsulosin Hcl 0.4 Mg Capsule PO 0.4 mg QHS [facility] Administration Vitamin D 1,000 units 10/05/24 09:00 10/06/24 08:23 Cholecalciferol 1,000 Units Tablet PO 1,000 units DAILY [facility] Administration Vitamin E 200 unit 10/05/24 09:00 10/06/24 08:24 Vitamin E 100 Unit Capsule PO 200 unit QAM [facility] Administration Radiology Results: ITS Impressions Chest X-Ray 10/04/24 12:23 Impression: Mild bibasilar haziness, as detailed above. Correlate for mild pulmonary edema, infection, or possibly chronic changes. Lexiscan Stress Test 10/06/24 12:13 IMPRESSION: 1. 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 No reversible ischemia. 2. Left ventricular ejection fraction measuring 55%. Labs Labs: Laboratory Results - last 24 hr 10/06/24 10/06/24 04:30 11:07 WBC 5.0 RBC 3.64 L Hgb 8.4 L Hct 29.5 L MCV 81.0 MCH 23.1 L MCHC 28.5 L RDW 14.9 H Plt Count 246 MPV 10.6 H Sodium 137 Potassium 3.9 Chloride 104 Carbon Dioxide 28 Anion Gap 5 BUN 16 Creatinine 1.10 Estim Creat Clear Calc 45 Estimated GFR > 60 Glucose 88 POC Capillary Glucose 91 Calcium 8.7 Iron 22 L TIBC 380 % Saturation 6 L Total Bilirubin 0.4 AST 18 ALT 12 Alkaline Phosphatase 62 Total Protein 6.0 L Albumin 3.3 L Quality VTE Prophylaxis VTE prophylaxis: mechanical ordered -Patient's previous records reviewed on admission -ER notes reviewed in detail on admission -discussed all findings and current treatment plan with patient/Family/POA -Consultations reviewed for recommendations -Patient's disposition for safe discharge discussed with nurse outreach case manager Dictation performed by [employer] direct speech recognition software, therefore workers compensation analyst variants and typographical errors may occur. Hospitalist [facility] Advance Care Plan I have confirmed that the patient's Advanced Care Plan is present, code status is documented, or surrogate decision maker is listed in patient medical record.: Yes Medication Reconciliation I have utilized all available resources to obtain, update and review the patients current medications (includes all prescriptions, OTC, herbals, cannabis, and nutritional supplements).: Yes The patient is not eligible for med reconciliation; the patient is in a emergent medical situation where delaying treatment would jeopardize the patients health.: No
[2024-10-06] MEDS: IRON SUCROSE COMPLEX 100 MG in SODIUM CHLORIDE 0.9% IV 50 ML 220 MG IVPB (15:19)
[2024-10-06] MEDS: FUROSEMIDE INJ 40 MG/4 ML VIAL 20 MG IV PUSH (17:28)
[2024-10-06] MEDS: TAMSULOSIN HCL 0.4 MG CAPSULE PO (21:04)
[2024-10-07] VITALS (16 sets, daily range): BP systolic 91–129; BP diastolic 44–86; PULSE 60–95; RESP 18–20; TEMP 36.4–36.8; O2SAT 94–98
--- NOTE | 2024-10-07 02:35 | PC.NURSE ---
Patient complaining of epigastric pain, patient HOB elevated greater than 30 degrees, few ice chips, patient states relief from pain
[2024-10-07 04:36] LABS: Hematocrit 29.8 % (42.0-52.0); Hemoglobin 8.4 g/dL (14.0-18.0); Mean Corpuscular HGB Conc 28.2 g/dl (32-36); Mean Corpuscular Hemoglobin 22.7 pg (26-34); Mean Corpuscular Volume 80.5 fl (80-100); Platelet Count Result 252 k/mm3 (150-375)
[2024-10-07 04:55] LABS: Alanine Aminotransferase 12 U/L (6-50); Albumin Level 3.3 g/dL (3.5-5.1); Alkaline Phosphatase 58 U/L (38-126); Anion Gap 6 mmol/L (4-12); Aspartate Amino Transferase 16 U/L (17-59); Bilirubin,Total 0.3 mg/dL (0.2-1.3); Blood Urea Nitrogen 18 mg/dL (9-20); Calcium 8.7 mg/dL (8.4-10.2); Carbon Dioxide 27 mmol/L (22-30); Chloride 104 mmol/L (98-107); Estimated CRCL calculation 42 ml/min; Estimated Glomerular Filt Rate > 60; Glucose 87 mg/dL (65-110); Potassium 3.7 mmol/L (3.4-5.0); Sodium 137 mmol/L (137-145)
--- NOTE | 2024-10-07 10:03 | P.PNCA_ITS ---
Progress Note: A&P Assessment and Plan (1) Angina of effort: Code(s): I20.89 - Other forms of angina pectoris Status: Acute Assessment and Plan: 84-year-old male with CAD, history of remote PCI/stenting in 2000 at [facility] in [place] (intervention report not available) in the setting of angina, hypertension, dyslipidemia, ?peptic ulcer disease, iron deficiency anemia. Patient presented to hospital with about 3 week history of exertional chest pain consistent with angina. No acute ST segment abnormality on EKG. Serial troponins negative. Patient has known CAD, and remote history of PCI/stenting. Patient's presenting symptomatology is concerning for obstructive CAD, although his anemia could be contributing to his symptoms as well. Ischemic evaluation was discussed with the patient. Initially, he did not wish to change DNR status for invasive ischemic evaluation, therefore, we pursued Lexiscan. Lexiscan showed ischemic EKG changes, and the MPI shows large moderate to severe infarct involving the apical, apical anterior, apical lateral, apical inferior, apical septal, mid anteroseptal, mid inferoseptal and mid inferior segments. No reversible ischemia. Left ventricular ejection fraction measuring 55% without wall motion abnormalities on MPI. Echocardiogram shows normal LVEF, moderate mitral regurgitation. Had an extensive discussion with the patient and his son, who was at bedside, regarding stress test findings and the next management steps of either LHC with possible PCI or medical management only. I did discuss with them that if he needs PCI, he will need to be on uninterrupted DAPT for at least six months. Discussed risks of complications associated with LHC. Discussed risks vs benefits of both management strategies. After patient centered discussion and discussing patient's goals of care and what his wishes are, he does not wish to undergo LHC at this time, therefore, we will plan for medical management only. Continue ASA 81mg once daily. Discussed adding Plavix to his regimen but patient and family wish to hold off on that for now given his anemia. Continue high intensity statin. Will start Imdur for antianginal therapy. Uptitrate antianginal therapy as needed. Regarding his anemia, no further GI workup indicated per GI. Will consult Dr. Us for management/treatment of anemia. Will arrange close outpatient follow up in our office. Subjective Date/time seen: 10/07/24 10:03 Interval history: Reason for visit: Chest pain HPI: 84-year-old male with CAD, history of remote PCI/stenting in 2000 at [facility] (intervention report not available) in the setting of angina, hypertension, dyslipidemia, peptic ulcer disease, iron deficiency anemia. Patient has history of CAD, and reports PCI/stenting x1 in 2000 at [facility], performed by ?Dr. Pina as per patient. He has not had regular follow-up visit with Cardiology over the years. He was doing well until 3 weeks ago when he started having exertional chest pain. He states that his symptoms got worse in last few days associated with mild shortness of breath and unsteadiness. Denied palpitations, dizziness or syncope. Patient has history of iron deficiency anemia and takes iron supplements at home. He denies overt bl eeding at present. He states that he had GI workup done in the past. EKG at presentation on my personal interpretation shows sinus rhythm, old anteroseptal infarct. No evolving significant ST-T changes on follow-up EKGs. Serial troponins negative. NT proBNP elevated at is 2630. Patient is anemic with hemoglobin of 9.4 at presentation. Chest x-ray showed mild bibasilar haziness and interstitial prominence. Review of old records showed negative MPI and normal LVEF from 04/27/2016. Date of service 10/06: Patient seen and examined in the cardiac stress lab where he is undergoing nuclear stress test. Prior to the test he was asymptomatic. He developed central chest tightness, nausea and reported not feeling well but was unable to describe symptoms. His blood pressure dropped and he appeared to be on the verge of losing consciousness, therefore a rapid response was called. Symptoms resolved and blood pressure improved with fluid administration and elevation of his legs. Date of service 10/07: Feeling well today. No chest pain. Discussion with son and patient regrading results of stress test. Review of Systems Review of Systems: All systems reviewed & are unremarkable except as noted in HPI and below (HPI) Exam Const: General: comfortable and no acute distress HENMT: Mouth: Yes moist mucous membranes Eyes: General: appearance normal, both eyes and all related structures Sclera: sclerae normal Resp: Effort & Inspection: normal respiratory effort Cardio: Rate: regular rate Rhythm: regular rhythm Neuro: Speech: normal speech Psych: Mental Status: mental status grossly normal Affect: normal affect Objective Data Vital Signs Vital Signs: Vital Signs - 24 hr 10/06/24 11:02 10/06/24 12:00 10/06/24 14:00 Temperature 35.8 C L Pulse Rate 82 85 99 Respiratory Rate 20 Blood Pressure 91/48 L 112/57 L Pulse Oximetry 95 100 Oxygen Delivery Nasal Cannula Oxygen Flow Rate 4 10/06/24 16:00 10/06/24 18:00 10/06/24 19:59 Temperature 36.7 C Pulse Rate 82 88 77 Respiratory Rate 18 Blood Pressure 115/72 Pulse Oximetry 97 Oxygen Delivery Oxygen Flow Rate 10/06/24 20:00 10/06/24 20:00 10/06/24 22:00 Temperature Pulse Rate 76 87 98 Respiratory Rate 19 Blood Pressure Pulse Oximetry 97 Oxygen Delivery Room Air Oxygen Flow Rate 10/06/24 23:04 10/07/24 00:00 10/07/24 00:00 Temperature 36.6 C Pulse Rate 77 73 73 Respiratory Rate 18 19 Blood Pressure 129/57 L Pulse Oximetry 96 97 Oxygen Delivery Room Air Oxygen Flow Rate 10/07/24 02:00 10/07/24 03:36 10/07/24 04:00 Temperature 36.5 C Pulse Rate 83 76 80 Respiratory Rate 18 Blood Pressure 119/50 L Pulse Oximetry 98 Oxygen Delivery Oxygen Flow Rate 10/07/24 04:00 10/07/24 06:00 10/07/24 08:00 Temperature Pulse Rate 73 86 Respiratory Rate 19 Blood Pressure Pulse Oximetry 97 Oxygen Delivery Room Air Room Air Oxygen Flow Rate 10/07/24 08:00 10/07/24 08:02 Temperature 36.8 C Pulse Rate 95 79 Respiratory Rate 18 Blood Pressure 118/86 Pulse Oximetry 98 Oxygen Delivery Oxygen Flow Rate Intake/Output Intake/Output: Intake & Output 10/04/24 10/05/24 10/06/24 10/07/24 23:59 23:59 23:59 23:59 Intake Total 1170 600 300 Output Total 700 1 Balance 470 600 299 Meds/Results Medications: Active Medications Generic Name Dose Route Start Last Admin Trade Name Freq PRN Reason Stop Dose Admin Acetaminophen 650 mg 10/04/24 23:48 10/05/24 00:10 Acetaminophen 325 Mg Tablet PO 650 mg Q6H PRN Administration Mild Pain (1-3) or Fever Aspirin 81 mg 10/05/24 09:00 10/06/24 08:23 Aspirin 81 Mg Enteric Tablet PO 81 mg QAM [facility] Administration Atorvastatin Calcium 20 mg 10/04/24 23:15 10/06/24 08:23 Atorvastatin 20 Mg Tablet PO 20 mg DAILY [facility] Administration Ferrous Sulfate 325 mg 10/06/24 13:00 10/06/24 17:28 Ferrous Sulfate [address] BY MOUTH 325 mg TID [facility] Administration Iron Sucrose 100 mg/ Sodium 55 mls @ 220 mls/hr 10/06/24 14:30 10/06/24 15:19 Chloride IVPB 220 mls/hr DAILY [facility] Administration Isosorbide Mononitrate 30 mg 10/07/24 10:05 Isosorbide Mononitrate 30 Mg Tab.Er.24h PO QAM [facility] Lisinopril 10 mg 10/05/24 09:00 10/06/24 08:24 Lisinopril 10 Mg Tablet PO 10 mg DAILY [facility] Administration Multivitamins/Minerals 1 tablet 10/05/24 09:00 10/06/24 17:28 Opti-Gen Tab PO 1 tablet BID [facility] Administration Nitroglycerin 0.4 mg 10/04/24 17:12 Nitroglycerin Sl 0.4 Mg Tablet SUBLINGUAL Q5MIN PRN Chest Pain Pantoprazole Sodium 40 mg 10/05/24 09:00 10/06/24 08:23 Pantoprazole 40 Mg Tablet PO 40 mg QAM [facility] Administration Perflutren Lipid Microsphere 0 ml 10/04/24 16:00 Perflutren Lipid Microspheres 1.5 Ml Vial Diluted To 10 Ml Total Volume IV PUSH 10/07/24 16:01 ONCE PRN adequate visualization Protocol Perflutren Lipid Microsphere 0 ml 10/05/24 10:10 Perflutren Lipid Microspheres 1.5 Ml Vial Diluted To 10 Ml Total Volume IV PUSH 10/08/24 10:10 ONCE PRN adequate visualization Protocol Polyethylene Glycol 17 gm 10/06/24 12:05 10/06/24 13:42 Polyethylene Glycol 3350 17 Gm Powd.Pack PO 17 gm QAM [facility] Administration Tamsulosin HCl 0.4 mg 10/05/24 21:00 10/06/24 21:04 Tamsulosin Hcl 0.4 Mg Capsule PO 0.4 mg QHS [facility] Administration Vitamin D 1,000 units 10/05/24 09:00 10/06/24 08:23 Cholecalciferol 1,000 Units Tablet PO 1,000 units DAILY [facility] Administration Vitamin E 200 unit 10/05/24 09:00 10/06/24 08:24 Vitamin E 100 Unit Capsule PO 200 unit QAM [facility] Administration Radiology Results: ITS Impressions Chest X-Ray 10/04/24 12:23 Impression: Mild bibasilar haziness, as detailed above. Correlate for mild pulmonary edema, infection, or possibly chronic changes. Lexiscan Stress Test 10/06/24 12:13 IMPRESSION: 1. 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 No reversible ischemia. 2. Left ventricular ejection fraction measuring 55%. Labs Labs: Laboratory Results - last 24 hr 10/06/24 10/06/24 10/07/24 04:30 11:07 03:57 WBC 5.0 RBC 3.70 L Hgb 8.4 L Hct 29.8 L MCV 80.5 MCH 22.7 L MCHC 28.2 L RDW 15.0 H Plt Count 252 MPV 11.0 H Sodium 137 Potassium 3.7 Chloride 104 Carbon Dioxide 27 Anion Gap 6 BUN 18 Creatinine 1.14 Estim Creat Clear Calc 42 Estimated GFR > 60 Glucose 87 POC Capillary Glucose 91 Calcium 8.7 TIBC 380 % Saturation 6 L Total Bilirubin 0.3 AST 16 L ALT 12 Alkaline Phosphatase 58 Total Protein 6.0 L Albumin 3.3 L
--- NOTE | 2024-10-07 10:42 | P.PNIM_ITS ---
Progress Note: A&P Assessment and Plan (1) Chest pain, exertional: Code(s): R07.9 - Chest pain, unspecified Status: Acute Assessment and Plan: * EKG, initial: Sinus rhythm, rate 73, marked left axis deviation, anteroseptal NH of indeterminate age. Awaiting formal read. * EKG, repeat (1): No significant change compared to prior, awaiting formal read. * CXR: Mild bibasilar haziness, as detailed above. Correlate for mild pulmonary edema, infection, or possibly chronic changes. * Troponin x 3 negative * ASA 324 given -> 81 daily * SL nitro PRN * cardiology consulted, awaiting recs * update echo, suspicion for CHF exacerbation versus ACS * telemetry monitoring 10/05/24: * ACS vs stable angina vs CHF potential * Stress test? Will wait for cardiology's recommendation * Imdur? 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 No reversible ischemia. * Patient and family discussing intervention vs medical management * Move to IMU * Echo still pending 10/07: * continue ASA cardiology would like to add Plavix but family would like a anemic evaluation first * Cardiology starting Imdur For antianginal L (2) Diastolic dysfunction: Code(s): I51.89 - Other ill-defined heart diseases Status: Acute Assessment and Plan: * BNP 2630 * most recent echo (2020): Normal systolic function, estimated EF 65-70%, grade 1 diastolic dysfunction. See report for full details. * Echo pending * not currently on a diuretic, start Lasix 20 mg IV b.i.d. * monitor I&Os and daily weights * trend renal function * Cardiology consulted for further recommendations (3) Anemia: Qualifiers: Anemia type: unspecified type Qualified Code(s): D64.9 - Anemia, unspecified Code(s): D64.9 - Anemia, unspecified Status: Chronic Assessment and Plan: Patient is on a iron supplement daily, stool dark due to this. Denies any BRB per rectum. * Hgb 9.4, previously 14 on 11/15/2023 * Chronic FAREED has had previous blood transfusion * Could be contributing to patient's shortness of breath * will repeat iron studies * Hx of FAREED, continue home iron supplementation. * transfuse PRBC if Hgb <7 * No overt signs of GIB 10/06: * Follows Dr. us * Will give Iron infusions * F/U scheduled in november 22: * Cardiology consulted Dr. Us for anemia evaluation patient would prefer to hold on starting plavix until seen * No GI Workup needed per consult * Continue with Iron infusions * Hgb 8.4 (4) Hypertension: Qualifiers: Hypertension type: primary hypertension Qualified Code(s): I10 - Essential (primary) hypertension Code(s): I10 - Essential (primary) hypertension Status: Chronic Assessment and Plan: * chronic, currently 134/67 * continue home medications: Lisinopril * Reviewed monitor per unit protocol Plan Code status: DNR DVT prophylaxis: SCD Stress ulcer prophylaxis: Protonix 40 daily PT/OT notes: Disposition: Patient admitted to the medical unit on telemetry for evaluation of chest pain and exertional SOB moved to IMU Stress test positive intervention vs medical management Continue with medical management per patient and family. consult to hematology for evaluation of anemia Time Spent With Patient Time with patient: 15 - 25 minutes Subjective Date/time seen: 10/07/24 10:42 Interval history: Patient was admitted for shortness of breath worse with exertion, chest pain and chf exacerbation. 10/07/2024: Spoke with patient and son in great length about his anemia and ischemic evaluation in seen by Hematology. Patient states he is currently chest pain- free however still gets a dull pain with exertion cardiology started on Imdur. At this time patient and family would like medical management until improvement to his anemia will continue with IV iron transfusions. Patient denies any shortness of breath at rest but with 2nd with exertion become short of breath denied any nausea or vomiting. Currently on ASA would like to add Plavix per Cardiology however with this time patient family would like to wait until his anemia improves. Review of Systems Review of Systems: All systems reviewed & are unremarkable except as noted in HPI and below Exam Narrative: 2+ pitting edema to BLE, symmetric. Const: General: comfortable and no acute distress Other: , male, nontoxic appearance HENMT: Face/Nose/Sinus: Normal nares present Mouth: Yes moist mucous membranes Eyes: General: appearance normal, both eyes and all related structures Sclera: sclerae normal Pupils: Equal, round and reactive pupils present EOM: EOMs intact bilaterally Neck: Neck: no JVD Resp: Effort & Inspection: normal respiratory effort Auscultation: clear to auscultation bilaterally and crackles (Scant to BLL) bilateral Cardio: Rate: regular rate Rhythm: regular rhythm Other: S1-S2 present without murmur, rub, ectopy Skin: General skin exam: normal color and no rashes or lesions noted Wounds: no wounds Neuro: General: gait normal Cranial nerves: Yes Equal, round and reactive pupils present Speech: normal speech Motor exam (neuro): 5/5 motor strength present throughout Sensory Exam: normal sensation Other: A&O x4 Extrem: General: normal to inspection and edema Other: 2+ pitting edema to BLE, symmetric. Psych: Mental Status: mental status grossly normal Affect: normal affect Other: Good insight and judgment, pleasant Objective Data Vital Signs Vital Signs: Vital Signs - 24 hr 10/06/24 11:02 10/06/24 12:00 10/06/24 14:00 Temperature 96.5 F L Pulse Rate 82 85 99 Respiratory Rate 20 Blood Pressure 91/48 L 112/57 L Pulse Oximetry 95 100 Oxygen Delivery Nasal Cannula Oxygen Flow Rate 4 10/06/24 16:00 10/06/24 18:00 10/06/24 19:59 Temperature 98.1 F Pulse Rate 82 88 77 Respiratory Rate 18 Blood Pressure 115/72 Pulse Oximetry 97 Oxygen Delivery Oxygen Flow Rate 10/06/24 20:00 10/06/24 20:00 10/06/24 22:00 Temperature Pulse Rate 76 87 98 Respiratory Rate 19 Blood Pressure Pulse Oximetry 97 Oxygen Delivery Room Air Oxygen Flow Rate 10/06/24 23:04 10/07/24 00:00 10/07/24 00:00 Temperature 97.8 F Pulse Rate 77 73 73 Respiratory Rate 18 19 Blood Pressure 129/57 L Pulse Oximetry 96 97 Oxygen Delivery Room Air Oxygen Flow Rate 10/07/24 02:00 10/07/24 03:36 10/07/24 04:00 Temperature 97.7 F Pulse Rate 83 76 80 Respiratory Rate 18 Blood Pressure 119/50 L Pulse Oximetry 98 Oxygen Delivery Oxygen Flow Rate 10/07/24 04:00 10/07/24 06:00 10/07/24 08:00 Temperature Pulse Rate 73 86 Respiratory Rate 19 Blood Pressure Pulse Oximetry 97 Oxygen Delivery Room Air Room Air Oxygen Flow Rate 10/07/24 08:00 10/07/24 08:02 Temperature 98.3 F Pulse Rate 95 79 Respiratory Rate 18 Blood Pressure 118/86 Pulse Oximetry 98 Oxygen Delivery Oxygen Flow Rate Intake/Output Intake/Output: Intake & Output 10/04/24 10/05/24 10/06/24 10/07/24 23:59 23:59 23:59 23:59 Intake Total 1170 600 300 Output Total 700 1 Balance 470 600 299 Meds/Results Medications: Active Medications Generic Name Dose Route Start Last Admin Trade Name Freq PRN Reason Stop Dose Admin Acetaminophen 650 mg 10/04/24 23:48 10/05/24 00:10 Acetaminophen 325 Mg Tablet PO 650 mg Q6H PRN Administration Mild Pain (1-3) or Fever Aspirin 81 mg 10/05/24 09:00 10/06/24 08:23 Aspirin 81 Mg Enteric Tablet PO 81 mg QAM [facility] Administration Atorvastatin Calcium 20 mg 10/04/24 23:15 10/06/24 08:23 Atorvastatin 20 Mg Tablet PO 20 mg DAILY [facility] Administration Ferrous Sulfate 325 mg 10/06/24 13:00 10/06/24 17:28 Ferrous Sulfate [address] BY MOUTH 325 mg TID [facility] Administration Iron Sucrose 100 mg/ Sodium 55 mls @ 220 mls/hr 10/06/24 14:30 10/06/24 15:19 Chloride IVPB 220 mls/hr DAILY [facility] Administration Isosorbide Mononitrate 30 mg 10/07/24 10:05 Isosorbide Mononitrate 30 Mg Tab.Er.24h PO QAM [facility] Lisinopril 10 mg 10/05/24 09:00 10/06/24 08:24 Lisinopril 10 Mg Tablet PO 10 mg DAILY [facility] Administration Multivitamins/Minerals 1 tablet 10/05/24 09:00 10/06/24 17:28 Opti-Gen Tab PO 1 tablet BID [facility] Administration Nitroglycerin 0.4 mg 10/04/24 17:12 Nitroglycerin Sl 0.4 Mg Tablet SUBLINGUAL Q5MIN PRN Chest Pain Pantoprazole Sodium 40 mg 10/05/24 09:00 10/06/24 08:23 Pantoprazole 40 Mg Tablet PO 40 mg QAM [facility] Administration Perflutren Lipid Microsphere 0 ml 10/04/24 16:00 Perflutren Lipid Microspheres 1.5 Ml Vial Diluted To 10 Ml Total Volume IV PUSH 10/07/24 16:01 ONCE PRN adequate visualization Protocol Perflutren Lipid Microsphere 0 ml 10/05/24 10:10 Perflutren Lipid Microspheres 1.5 Ml Vial Diluted To 10 Ml Total Volume IV PUSH 10/08/24 10:10 ONCE PRN adequate visualization Protocol Polyethylene Glycol 17 gm 10/06/24 12:05 10/06/24 13:42 Polyethylene Glycol 3350 17 Gm Powd.Pack PO 17 gm QAM [facility] Administration Tamsulosin HCl 0.4 mg 10/05/24 21:00 10/06/24 21:04 Tamsulosin Hcl 0.4 Mg Capsule PO 0.4 mg QHS [facility] Administration Vitamin D 1,000 units 10/05/24 09:00 10/06/24 08:23 Cholecalciferol 1,000 Units Tablet PO 1,000 units DAILY [facility] Administration Vitamin E 200 unit 10/05/24 09:00 10/06/24 08:24 Vitamin E 100 Unit Capsule PO 200 unit QAM [facility] Administration Radiology Results: ITS Impressions Chest X-Ray 10/04/24 12:23 Impression: Mild bibasilar haziness, as detailed above. Correlate for mild pulmonary edema, infection, or possibly chronic changes. Lexiscan Stress Test 10/06/24 12:13 IMPRESSION: 1. 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 No reversible ischemia. 2. Left ventricular ejection fraction measuring 55%. Labs Labs: Laboratory Results - last 24 hr 10/06/24 10/06/24 10/07/24 04:30 11:07 03:57 WBC 5.0 RBC 3.70 L Hgb 8.4 L Hct 29.8 L MCV 80.5 MCH 22.7 L MCHC 28.2 L RDW 15.0 H Plt Count 252 MPV 11.0 H Sodium 137 Potassium 3.7 Chloride 104 Carbon Dioxide 27 Anion Gap 6 BUN 18 Creatinine 1.14 Estim Creat Clear Calc 42 Estimated GFR > 60 Glucose 87 POC Capillary Glucose 91 Calcium 8.7 % Saturation 6 L Total Bilirubin 0.3 AST 16 L ALT 12 Alkaline Phosphatase 58 Total Protein 6.0 L Albumin 3.3 L Quality VTE Prophylaxis VTE prophylaxis: mechanical ordered -Patient's previous records reviewed on admission -ER notes reviewed in detail on admission -discussed all findings and current treatment plan with patient/Family/POA -Consultations reviewed for recommendations -Patient's disposition for safe discharge discussed with director of casework Dictation performed by [employer] direct speech recognition software, therefore land surveying survey worker variants and typographical errors may occur. Hospitalist MIPS Advance Care Plan I have confirmed that the patient's Advanced Care Plan is present, code status is documented, or surrogate decision maker is listed in patient medical record.: Yes Medication Reconciliation I have utilized all available resources to obtain, update and review the patients current medications (includes all prescriptions, OTC, herbals, cannabis, and nutritional supplements).: Yes The patient is not eligible for med reconciliation; the patient is in a emergent medical situation where delaying treatment would jeopardize the patients health.: No
[2024-10-07] MEDS: VITAMIN E 100 UNIT CAPSULE 200 UNIT PO (10:51)
[2024-10-07] MEDS: CHOLECALCIFEROL 1,000 UNITS TABLET 1000 UNITS PO (10:51)
[2024-10-07] MEDS: ATORVASTATIN 20 MG TABLET PO (10:51)
[2024-10-07] MEDS: FERROUS SULFATE 325 MG TABLET DR BY MOUTH ×3 (10:51→17:38)
[2024-10-07] MEDS: ASPIRIN 81 MG ENTERIC TABLET PO (10:51)
[2024-10-07] MEDS: OPTI-GEN TAB 1 TABLET PO ×2 (10:51→17:38)
[2024-10-07] MEDS: lisinopriL 10 MG TABLET PO (10:51)
[2024-10-07] MEDS: PANTOPRAZOLE 40 MG TABLET PO (10:52)
[2024-10-07] MEDS: IRON SUCROSE COMPLEX 100 MG in SODIUM CHLORIDE 0.9% IV 50 ML 220 MG IVPB (10:54)
[2024-10-07] MEDS: ISOSORBIDE MONONITRATE 30 MG TAB.ER.24H PO (12:46)
[2024-10-07] MEDS: polyethylene glycoL 3350 17 GM POWD.PACK PO (12:46)
--- NOTE | 2024-10-07 12:54 | P.CONONC_ITS ---
Assessment and Plan Assessment and plan (1) Anemia: Qualifiers: Anemia type: unspecified type Qualified Code(s): D64.9 - Anemia, unspecified Code(s): D64.9 - Anemia, unspecified Status: Chronic Assessment and Plan: This is the pleasant 84-year-old male with history of chronic anemia was seen last in the office in November 2023. Patient had colonoscopy, EGD and capsule enteroscopy done in 2021. Capsule enteroscopy came back normal. EGD showed gastritis, duodenitis and Schatzki ring. There was some diverticulosis on the colonoscopy. He came into the hospital with tiredness fatigue and chest discomfort with dyspnea on exertion. He denies any bleeding including melena and hematochezia. Labs showed iron 22 with saturation of 6%. Hemoglobin dropped to 8.4. He was taking oral iron twice a day but recently reduced to every other day basis due to constipation. We will correct his iron deficiency anemia before doing any further investigation like bone marrow biopsy. We will repeat iron studies in my office in next 3-4 weeks to see if he needs more iron infusion. He will follow-up with me in 3-4 weeks. HPI Data of Consult Date/Time: 10/07/24 12:54 Requesting Physician: Carlos A Villafuerte MD Primary Care Provider: Sixto Birmingham APRN Consult Narrative Narrative: Pranay Casanova is a 84 year old male with history of COPD, diastolic heart failure, kidney stone, hypertension and hyperlipidemia along with chronic anemia last seen in the office in November of 2023. At that time hemoglobin was 13.9. Patient had colonoscopy EGD and capsule enteroscopy done in 2019 that showed duodenitis and Schatzki ring along with gastritis. Capsule enteroscopy was normal. He was supposed to be taking iron twice a day but due to constipation recently he started taking iron every other day basis. He denies any bleeding including melena hematochezia. He came into the hospital with shortness of breath and dyspnea on exertion along with chest discomfort. Labs showed hemoglobin of 9.4 now dropped to 8.4. Iron studies showed iron of 22 with saturation of 6%. His getting iron infusion. He denies any other new complaints. Review of Systems 2 Review of Systems: Twelve point review system was reviewed PMFSH Past Medical History Medical History Diastolic dysfunction History of tobacco use Asbestosis Iron deficiency anemia H. pylori duodenitis Hyperlipidemia Hypertension Coronary artery disease COPD (chronic obstructive pulmonary disease) Kidney stones Diastolic heart failure Echocardiogram April 2016: Normal ejection fraction of 65%, grade 2 diastolic dysfunction Surgical History Surgical History History of hernia repair Right inguinal hernia repair x2 with most recent repair July 2015 History of tonsillectomy H/O cataract extraction History of partial thyroidectomy (~01/2011) History of heart artery stent (~2010) Family History Family History Mother Heart disease Father Heart disease Melanoma Social History Social History Social History: He lives in [place] with his of 64 years. They had 2 sons. He is retired from the [employer]. He is still independent in activities of daily living and ambulates without assistance. He still drives. He had a distant history of 20 pack per year smoking history but quit smoking in . Primary care physician: Dr. Iam Sabillon Code status: DNR/DNI per patient request Surrogate decision maker: Tonia () Smoking packs per day: 1 Smoking cigarettes per day: 20.0 Years smoked: 45 Smoking pack-years: 45.00 Smoking status: Former smoker Tobacco type: cigarettes Second hand tobacco smoke exposure: No Alcohol intake: never Substance use: never Substance use type: does not use Do You Feel Safe in your Home?: Yes Lack of Transportation: No Lack of Food: Never True Current Housing: I Have Housing Concerned About Future Housing: No Difficulty Paying Gas/Electric Bills: No Difficulty Paying for Meds: No Currently Unemployed: No Education: High School Diploma/GED Difficulty w/ Childcare or Family Care: No Living arrangements: with family Gender identity (if verbalized by the patient): Male Sexual Orientation (if Verbalized by the Patient): Straight or Heterosexual Spiritual care concerns: No Meds Home Medications and Allergies Home Medications ?Medication ?Instructions ?Recorded ?Confirmed ?Type cholecalciferol (vitamin D3) 25 25 mcg PO DAILY 09/17/20 10/04/24 History mcg (1,000 unit) capsule vitamin E 200 unit capsule 200 unit PO DAILY 09/17/20 10/04/24 History aspirin 81 mg tablet 81 mg PO DAILY 11/21/20 10/04/24 History prevagen 1 tablet PO DAILY 03/21/24 10/04/24 History atorvastatin 20 mg tablet See Rx Instructions .Route 04/14/24 10/04/24 Rx .COMPLEX #90 tabs lisinopril 10 mg tablet See Rx Instructions .Route 06/05/24 10/04/24 Rx .COMPLEX #90 tabs tamsulosin 0.4 mg capsule 0.4 mg PO QHS #90 caps 06/05/24 10/04/24 Rx ferrous sulfate 325 mg (65 mg 325 mg PO DAILY 10/04/24 10/04/24 History iron) tablet vit C 250 mg-vit E 90 mg-zinc 40 1 tablet PO BID 10/04/24 10/04/24 History mg-copper 1 [id number] capsule (PreserVision AREDS-2) Allergies Allergy/AdvReac Type Severity Reaction Status Date / Time No Known Allergies Allergy Unknown Verified 10/04/24 18:11 Vital Signs Vital Signs - 24 hr 10/06/24 14:00 10/06/24 16:00 10/06/24 18:00 Temperature 35.8 C L Pulse Rate 99 82 88 Respiratory Rate 20 Blood Pressure 112/57 L Pulse Oximetry 100 Oxygen Delivery 10/06/24 19:59 10/06/24 20:00 10/06/24 20:00 Temperature 36.7 C Pulse Rate 77 76 87 Respiratory Rate 18 19 Blood Pressure 115/72 Pulse Oximetry 97 97 Oxygen Delivery Room Air 10/06/24 22:00 10/06/24 23:04 10/07/24 00:00 Temperature 36.6 C Pulse Rate 98 77 73 Respiratory Rate 18 Blood Pressure 129/57 L Pulse Oximetry 96 Oxygen Delivery 10/07/24 00:00 10/07/24 02:00 10/07/24 03:36 Temperature 36.5 C Pulse Rate 73 83 76 Respiratory Rate 19 18 Blood Pressure 119/50 L Pulse Oximetry 97 98 Oxygen Delivery Room Air 10/07/24 04:00 10/07/24 04:00 10/07/24 06:00 Temperature Pulse Rate 80 73 86 Respiratory Rate 19 Blood Pressure Pulse Oximetry 97 Oxygen Delivery Room Air 10/07/24 08:00 10/07/24 08:00 10/07/24 08:02 Temperature 36.8 C Pulse Rate 95 79 Respiratory Rate 18 Blood Pressure 118/86 Pulse Oximetry 98 Oxygen Delivery Room Air 10/07/24 11:48 10/07/24 12:00 10/07/24 12:00 Temperature 36.6 C Pulse Rate 94 94 Respiratory Rate 20 Blood Pressure 122/60 Pulse Oximetry 95 Oxygen Delivery Room Air Exam 2 Narrative: Lungs are clear to auscultation bilaterally Cardiovascular regular rate rhythm no murmurs Abdomen soft nontender nondistended Extremities no edema Results Labs 10/07/24 03:57 10/07/24 03:57 Labs: Short CBC 10/07/24 Range/Units 03:57 WBC 5.0 (4.5-10.0) K/mm3 Hgb 8.4 L (14.0-18.0) g/dL Hct 29.8 L (42.0-52.0) % Plt Count 252 (150-375) k/mm3 BMP 10/07/24 03:57 Sodium 137 Potassium 3.7 Chloride 104 Carbon Dioxide 27 BUN 18 Creatinine 1.14 Glucose 87 Calcium 8.7 Liver Function 10/07/24 Range/Units 03:57 Total Bilirubin 0.3 (0.2-1.3) mg/dL AST 16 L (17-59) U/L ALT 12 (6-50) U/L Alkaline Phosphatase 58 (38-126) U/L Albumin 3.3 L (3.5-5.1) g/dL
[2024-10-07] MEDS: TAMSULOSIN HCL 0.4 MG CAPSULE PO (20:22)
[2024-10-08] VITALS (25 sets, daily range): BP systolic 87–120; BP diastolic 40–64; PULSE 64–97; RESP 18–20; TEMP 36.4–36.9; O2SAT 94–100
[2024-10-08 04:36] LABS: Hematocrit 26.9 % (42.0-52.0); Hemoglobin 7.6 g/dL (14.0-18.0); Mean Corpuscular HGB Conc 28.3 g/dl (32-36); Mean Corpuscular Hemoglobin 22.8 pg (26-34); Mean Corpuscular Volume 80.5 fl (80-100); Mean Platelet Volume 10.9 fl (7.4-10.4); Platelet Count Result 241 k/mm3 (150-375); Red Blood Count 3.34 M/mm3 (4.6-6.20); White Blood Count 5.8 K/mm3 (4.5-10.0)
[2024-10-08 04:52] LABS: Alanine Aminotransferase 11 U/L (6-50); Albumin Level 3.1 g/dL (3.5-5.1); Alkaline Phosphatase 55 U/L (38-126); Anion Gap 6 mmol/L (4-12); Aspartate Amino Transferase 15 U/L (17-59); Bilirubin,Total 0.3 mg/dL (0.2-1.3); Blood Urea Nitrogen 17 mg/dL (9-20); Calcium 8.7 mg/dL (8.4-10.2); Carbon Dioxide 26 mmol/L (22-30); Chloride 102 mmol/L (98-107); Estimated CRCL calculation 46 ml/min; Estimated Glomerular Filt Rate > 60; Glucose 77 mg/dL (65-110); Potassium 3.9 mmol/L (3.4-5.0); Sodium 134 mmol/L (137-145)
--- NOTE | 2024-10-08 08:52 | P.PNIM_ITS ---
Progress Note: A&P Assessment and Plan (1) Chest pain, exertional: Code(s): R07.9 - Chest pain, unspecified Status: Acute Assessment and Plan: Exertional * EKG, initial: Sinus rhythm, rate 73, marked left axis deviation, anteroseptal MA of indeterminate age. Awaiting formal read. * EKG, repeat (1): No significant change compared to prior, awaiting formal read. * CXR: Mild bibasilar haziness, as detailed above. Correlate for mild pulmonary edema, infection, or possibly chronic changes. * Troponin x 3 negative * ASA 324 given -> 81 daily * SL nitro PRN * update echo, suspicion for CHF exacerbation versus ACS * telemetry monitoring 10/05/24: * ACS vs stable angina vs CHF potential * Stress test? Will wait for cardiology's recommendation * Imdur? 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 No reversible ischemia. * Patient and family discussing intervention vs medical management * Move to IMU * Echo still pending 10/07: * continue ASA cardiology would like to add Plavix but family would like a anemic evaluation first * Cardiology starting Imdur For antianginal (2) Diastolic dysfunction: Code(s): I51.89 - Other ill-defined heart diseases Status: Acute Assessment and Plan: * BNP 2630 * most recent echo (2020): Normal systolic function, estimated EF 65-70%, grade 1 diastolic dysfunction. See report for full details. * Echo pending * not currently on a diuretic, start Lasix 20 mg IV b.i.d. * monitor I&Os and daily weights * trend renal function * Cardiology consulted for further recommendations (3) Anemia: Qualifiers: Anemia type: unspecified type Qualified Code(s): D64.9 - Anemia, unspecified Code(s): D64.9 - Anemia, unspecified Status: Chronic Assessment and Plan: Patient is on a iron supplement daily, stool dark due to this. Denies any BRB per rectum. * Hgb 9.4, previously 14 on 11/15/2023 * Chronic FAREED has had previous blood transfusion * Could be contributing to patient's shortness of breath * will repeat iron studies * Hx of FAREED, continue home iron supplementation. * transfuse PRBC if Hgb <7 * No overt signs of GIB 10/06: * Follows Dr. us * Will give Iron infusions * F/U scheduled in november 22: * Cardiology consulted Dr. Us for anemia evaluation patient would prefer to hold on starting plavix until seen * No GI Workup needed per consult * Continue with Iron infusions * Hgb 8.4 10/08 hemoglobin down to 7.6 with suspected underlying coronary artery disease will transfuse 1 unit of PRBC. (4) Hypertension: Qualifiers: Hypertension type: primary hypertension Qualified Code(s): I10 - Essen tial (primary) hypertension Code(s): I10 - Essential (primary) hypertension Status: Chronic Assessment and Plan: * chronic, currently 134/67 * continue home medications: Lisinopril * Reviewed monitor per unit protocol Plan Code status: DNR DVT prophylaxis: SCD Stress ulcer prophylaxis: Protonix 40 daily PT/OT notes: Disposition: Patient admitted to the medical unit on telemetry for evaluation of chest pain and exertional SOB moved to IMU Stress test positive intervention vs medical management Continue with medical management per patient and family. consult to hematology for evaluation of anemia. Appreciate their recommendations. Subjective Date/time seen: 10/08/24 08:52 Interval history: Feels okay. Denies any new complaints. Ongoing use chest pain/shortness of breath with exertion. Review of Systems Review of Systems: All systems reviewed & are unremarkable except as noted in HPI and below Exam Narrative: GENERAL: The patient is well developed, not in acute distress HEENT: Nonicteric sclerae, PERRLA, EOMI. Oropharynx clear. Moist mucous membranes. Conjunctivae appear well perfused. CHEST: Chest wall is nontender. HEART: Regular rate and rhythm without murmur, rubs, or gallops LUNGS: Clear to auscultation bilaterally. no respiratory distress ABDOMEN: Soft, positive bowel sounds, non-tender, no organomegaly. SKIN: No rash, no excessive bruising, petechiae, or purpura. NEUROLOGIC: Cranial nerves II-XII intact, alert and oriented x 3, no gross motor deficits EXTREMITIES: no edema, cyanosis or clubbing Objective Data Vital Signs Vital Signs: Vital Signs - 24 hr 10/07/24 11:48 10/07/24 12:00 10/07/24 12:00 Temperature 97.9 F Pulse Rate 94 94 Respiratory Rate 20 Blood Pressure 122/60 Pulse Oximetry 95 Oxygen Delivery Room Air 10/07/24 14:00 10/07/24 15:50 10/07/24 16:00 Temperature 97.8 F Pulse Rate 72 84 Respiratory Rate 20 Blood Pressure 129/51 L Pulse Oximetry 94 Oxygen Delivery Room Air 10/07/24 16:00 10/07/24 19:47 10/07/24 20:00 Temperature Pulse Rate 84 71 80 Respiratory Rate 18 Blood Pressure 95/46 L Pulse Oximetry 95 Oxygen Delivery 10/07/24 20:00 10/07/24 22:00 10/07/24 23:31 Temperature 97.6 F Pulse Rate 60 77 Respiratory Rate 18 Blood Pressure 91/44 L Pulse Oximetry 96 Oxygen Delivery Room Air 10/07/24 23:47 10/08/24 00:00 10/08/24 02:00 Temperature Pulse Rate 76 64 Respiratory Rate Blood Pressure Pulse Oximetry Oxygen Delivery Room Air 10/08/24 03:25 10/08/24 04:00 10/08/24 04:04 Temperature 97.6 F Pulse Rate 87 70 Respiratory Rate 18 Blood Pressure 110/40 L Pulse Oximetry 96 Oxygen Delivery Room Air 10/08/24 06:00 10/08/24 07:58 Temperature 97.8 F Pulse Rate 73 86 Respiratory Rate 18 Blood Pressure 100/46 L Pulse Oximetry 95 Oxygen Delivery Intake/Output Intake/Output: Intake & Output 10/05/24 10/06/24 10/07/24 10/08/24 23:59 23:59 23:59 23:59 Intake Total 1170 655 980 550 Output Total 700 1 Balance 470 655 979 550 Meds/Results Medications: Active Medications Generic Name Dose Route Start Last Admin Trade Name Freq PRN Reason Stop Dose Admin Acetaminophen 650 mg 10/04/24 23:48 10/05/24 00:10 Acetaminophen 325 Mg Tablet PO 650 mg Q6H PRN Administration Mild Pain (1-3) or Fever Aspirin 81 mg 10/05/24 09:00 10/07/24 10:51 Aspirin 81 Mg Enteric Tablet PO 81 mg QAM [facility] Administration Atorvastatin Calcium 20 mg 10/04/24 23:15 10/07/24 10:51 Atorvastatin 20 Mg Tablet PO 20 mg DAILY [facility] Administration Ferrous Sulfate 325 mg 10/06/24 13:00 10/07/24 17:38 Ferrous Sulfate [address] BY MOUTH 325 mg TID [facility] Administration Iron Sucrose 100 mg/ Sodium 55 mls @ 220 mls/hr 10/06/24 14:30 10/07/24 10:54 Chloride IVPB 220 mls/hr DAILY [facility] Administration Isosorbide Mononitrate 30 mg 10/07/24 10:05 10/07/24 12:46 Isosorbide Mononitrate 30 Mg Tab.Er.24h PO 30 mg QAM [facility] Administration Lisinopril 10 mg 10/05/24 09:00 10/07/24 10:51 Lisinopril 10 Mg Tablet PO 10 mg DAILY [facility] Administration Multivitamins/Minerals 1 tablet 10/05/24 09:00 10/07/24 17:38 Opti-Gen Tab PO 1 tablet BID [facility] Administration Nitroglycerin 0.4 mg 10/04/24 17:12 Nitroglycerin Sl 0.4 Mg Tablet SUBLINGUAL Q5MIN PRN Chest Pain Pantoprazole Sodium 40 mg 10/05/24 09:00 10/07/24 10:52 Pantoprazole 40 Mg Tablet PO 40 mg QAM [facility] Administration Perflutren Lipid Microsphere 0 ml 10/05/24 10:10 Perflutren Lipid Microspheres 1.5 Ml Vial Diluted To 10 Ml Total Volume IV PUSH 10/08/24 10:10 ONCE PRN adequate visualization Protocol Polyethylene Glycol 17 gm 10/06/24 12:05 10/07/24 12:46 Polyethylene Glycol 3350 17 Gm Powd.Pack PO 17 gm QAM [facility] Administration Tamsulosin HCl 0.4 mg 10/05/24 21:00 10/07/24 20:22 Tamsulosin Hcl 0.4 Mg Capsule PO 0.4 mg QHS [facility] Administration Vitamin D 1,000 units 10/05/24 09:00 10/07/24 10:51 Cholecalciferol 1,000 Units Tablet PO 1,000 units DAILY [facility] Administration Vitamin E 200 unit 10/05/24 09:00 10/07/24 10:51 Vitamin E 100 Unit Capsule PO 200 unit QAM [facility] Administration Radiology Results: ITS Impressions Chest X-Ray 10/04/24 12:23 Impression: Mild bibasilar haziness, as detailed above. Correlate for mild pulmonary edema, infection, or possibly chronic changes. Lexiscan Stress Test 10/06/24 12:13 IMPRESSION: 1. 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 No reversible ischemia. 2. Left ventricular ejection fraction measuring 55%. Labs Labs: Laboratory Results - last 24 hr 10/08/24 03:55 WBC 5.8 RBC 3.34 L Hgb 7.6 L Hct 26.9 L MCV 80.5 MCH 22.8 L MCHC 28.3 L RDW 15.0 H Plt Count 241 MPV 10.9 H Sodium 134 L Potassium 3.9 Chloride 102 Carbon Dioxide 26 Anion Gap 6 BUN 17 Creatinine 1.05 Estim Creat Clear Calc 46 Estimated GFR > 60 Glucose 77 Calcium 8.7 Total Bilirubin 0.3 AST 15 L ALT 11 Alkaline Phosphatase 55 Total Protein 5.0 L Albumin 3.1 L
[2024-10-08] MEDS: ATORVASTATIN 20 MG TABLET PO (09:08)
[2024-10-08] MEDS: CHOLECALCIFEROL 1,000 UNITS TABLET 1000 UNITS PO (09:08)
[2024-10-08] MEDS: FERROUS SULFATE 325 MG TABLET DR BY MOUTH ×3 (09:08→17:02)
[2024-10-08] MEDS: PANTOPRAZOLE 40 MG TABLET PO (09:08)
[2024-10-08] MEDS: IRON SUCROSE COMPLEX 100 MG in SODIUM CHLORIDE 0.9% IV 50 ML 220 MG IVPB (09:15)
[2024-10-08] MEDS: ISOSORBIDE MONONITRATE 30 MG TAB.ER.24H PO (09:16)
[2024-10-08] MEDS: ASPIRIN 81 MG ENTERIC TABLET PO (09:16)
[2024-10-08] MEDS: lisinopriL 10 MG TABLET PO (09:16)
[2024-10-08] MEDS: VITAMIN E 100 UNIT CAPSULE 200 UNIT PO (09:16)
[2024-10-08] MEDS: OPTI-GEN TAB 1 TABLET PO ×2 (09:16→17:02)
[2024-10-08 10:37] LABS: Iron 73 ug/dL (49-181)
[2024-10-08 10:51] LABS: Percent Iron Saturation 21 % (20-50)
[2024-10-08] MEDS: polyethylene glycoL 3350 17 GM POWD.PACK PO (11:13)
[2024-10-08] MEDS: SODIUM CHLORIDE 0.9% IV 250 ML 30 ML IV CONT (11:14)
[2024-10-08] MEDS: TUBING, BLOOD PLUM PUMP TUBING 1 EACH XX (11:14)
--- NOTE | 2024-10-08 11:22 | P.PNCA_ITS ---
Progress Note: A&P Assessment and Plan (1) Angina of effort: Code(s): I20.89 - Other forms of angina pectoris Status: Acute Assessment and Plan: 84-year-old male with CAD, history of remote PCI/stenting in 2000 at [facility] (intervention report not available) in the setting of angina, hypertension, dyslipidemia, ?peptic ulcer disease, iron deficiency anemia. Patient presented to hospital with about 3 week history of exertional chest pain consistent with angina. No acute ST segment abnormality on EKG. Serial troponins negative. Patient has known CAD, and remote history of PCI/stenting. Patient's presenting symptomatology is concerning for obstructive CAD, although his anemia could be contributing to his symptoms as well. Ischemic evaluation was discussed with the patient. Initially, he did not wish to change DNR status for invasive ischemic evaluation, therefore, we pursued Lexiscan. Lexiscan showed ischemic EKG changes, and the MPI shows large moderate to severe infarct involving the apical, apical anterior, apical lateral, apical inferior, apical septal, mid anteroseptal, mid inferoseptal and mid inferior segments. No reversible ischemia. Left ventricular ejection fraction measuring 55% without wall motion abnormalities on MPI. Echocardiogram shows normal LVEF, moderate mitral regurgitation. Once again I talked to the patient as well as patient's son today about potential cardiac catheterization. If after anemia workup, it is deemed reasonable to pursue a cardiac catheterization, is okay to do so at that time. In the meantime, will pursue medical management. Isosorbide was added yesterday. Continue low-dose aspirin as well as statin. Unfortunately blood pressure is too low to add metoprolol but if symptoms recur or persist, theoretically could stop the lisinopril and add metoprolol as an antianginal agent and hopefully his blood pressure would tolerate. Regarding his anemia, no further GI workup indicated per GI. Will consult Dr. Us for management/treatment of anemia. Will arrange close outpatient follow up in our office. Subjective Date/time seen: 10/08/24 11:22 Interval history: Reason for visit: Chest pain HPI: 84-year-old male with CAD, history of remote PCI/stenting in 2000 at [facility] (intervention report not available) in the setting of angina, hypertension, dyslipidemia, peptic ulcer disease, iron deficiency anemia. Patient has history of CAD, and reports PCI/stenting x1 in 2000 at [facility], performed by ?Dr. Pina as per patient. He has not had regular follow-up visit with Cardiology over the years. He was doing well until 3 weeks ago when he started having exertional chest pain. He states that his symptoms got worse in last few days associated with mild shortness of breath and unsteadiness. Denied palpitations, dizziness or syncope. Patient has history of iron deficiency anemia and takes iron supplements at home. He denies overt bleeding at present. He states that he had GI workup done in the past. EKG at presentation on my personal interpretation shows sinus rhythm, old anteroseptal infarct. No evolving significant ST-T changes on follow-up EKGs. Serial troponins negative. NT proBNP elevated at is 2630. Patient is anemic with hemoglobin of 9.4 at presentation. Chest x-ray showed mild bibasilar haziness and interstitial prominence. Review of old records showed negative MPI and normal LVEF from 04/27/2016. Date of service 10/06: Patient seen and examined in the cardiac stress lab where he is undergoing nuclear stress test. Prior to the test he was asymptomatic. He developed central chest tightness, nausea and reported not feeling well but was unable to describe symptoms. His blood pressure dropped and he appeared to be on the verge of losing consciousness, therefore a rapid response was called. Symptoms resolved and blood pressure improved with fluid administration and elevation of his legs. Date of service 10/07: Feeling well today. No chest pain. Discussion with son and patient regrading results of stress test. Date of service 10/08/2024: No chest pain at rest. No shortness of breath, edema Review of Systems Review of Systems: All systems reviewed & are unremarkable except as noted in HPI and below Constitutional: Constitutional: Denies body ache(s) Eyes: Eyes: Denies blurry vision ENT: Reports Normal hearing present Cardiovascular: Cardiovascular: Reports chest pain Respiratory: Respiratory: Denies hemoptysis Gastrointestinal: Gastrointestinal: Denies abdominal pain Exam Const: General: comfortable and no acute distress HENMT: Mouth: Yes moist mucous membranes Eyes: General: appearance normal, both eyes and all related structures Sclera: sclerae normal Resp: Effort & Inspection: normal respiratory effort Cardio: Rate: regular rate Rhythm: regular rhythm Neuro: Speech: normal speech Psych: Mental Status: mental status grossly normal Affect: normal affect Objective Data Vital Signs Vital Signs: Vital Signs - 24 hr 10/07/24 11:48 10/07/24 12:00 10/07/24 12:00 Temperature 36.6 C Pulse Rate 94 94 Respiratory Rate 20 Blood Pressure 122/60 Pulse Oximetry 95 Oxygen Delivery Room Air 10/07/24 14:00 10/07/24 15:50 10/07/24 16:00 Temperature 36.6 C Pulse Rate 72 84 Respiratory Rate 20 Blood Pressure 129/51 L Pulse Oximetry 94 Oxygen Delivery Room Air 10/07/24 16:00 10/07/24 19:47 10/07/24 20:00 Temperature Pulse Rate 84 71 80 Respiratory Rate 18 Blood Pressure 95/46 L Pulse Oximetry 95 Oxygen Delivery 10/07/24 20:00 10/07/24 22:00 10/07/24 23:31 Temperature 36.4 C Pulse Rate 60 77 Respiratory Rate 18 Blood Pressure 91/44 L Pulse Oximetry 96 Oxygen Delivery Room Air 10/07/24 23:47 10/08/24 00:00 10/08/24 02:00 Temperature Pulse Rate 76 64 Respiratory Rate Blood Pressure Pulse Oximetry Oxygen Delivery Room Air 10/08/24 03:25 10/08/24 04:00 10/08/24 04:04 Temperature 36.4 C Pulse Rate 87 70 Respiratory Rate 18 Blood Pressure 110/40 L Pulse Oximetry 96 Oxygen Delivery Room Air 10/08/24 06:00 10/08/24 07:58 Temperature 36.6 C Pulse Rate 73 86 Respiratory Rate 18 Blood Pressure 100/46 L Pulse Oximetry 95 Oxygen Delivery Intake/Output Intake/Output: Intake & Output 10/05/24 10/06/24 10/07/24 10/08/24 23:59 23:59 23:59 23:59 Intake Total 8916 932 0158 790 Output Total 700 1 Balance 909 548 0597 790 Meds/Results Medications: Active Medications Generic Name Dose Route Start Last Admin Trade Name Freq PRN Reason Stop Dose Admin Acetaminophen 650 mg 10/04/24 23:48 10/05/24 00:10 Acetaminophen 325 Mg Tablet PO 650 mg Q6H PRN Administration Mild Pain (1-3) or Fever Aspirin 81 mg 10/05/24 09:00 10/08/24 09:16 Aspirin 81 Mg Enteric Tablet PO 81 mg QAM [facility]MON[facility] Administration Atorvastatin Calcium 20 mg 10/04/24 23:15 10/08/24 09:08 Atorvastatin 20 Mg Tablet PO 20 mg DAILY [facility]MON[facility] Administration Ferrous Sulfate 325 mg 10/06/24 13:00 10/08/24 09:08 Ferrous Sulfate [address] BY MOUTH 325 mg TID EDMON[facility] Administration Iron Sucrose 100 mg/ Sodium 55 mls @ 220 mls/hr 10/06/24 14:30 10/08/24 09:15 Chloride IVPB 220 mls/hr DAILY [facility]MON[facility] Administration Sodium Chloride 250 mls @ 30 mls/hr 10/08/24 08:55 10/08/24 11:14 Normal Saline Iv IV CONT 10/08/24 17:14 30 mls/hr .[id number] STA Administration Isosorbide Mononitrate 30 mg 10/07/24 10:05 10/08/24 09:16 Isosorbide Mononitrate 30 Mg Tab.Er.24h PO 30 mg QAM [facility] Administration Lisinopril 10 mg 10/05/24 09:00 10/08/24 09:16 Lisinopril 10 Mg Tablet PO 10 mg DAILY [facility]MON[facility] Administration Multivitamins/Minerals 1 tablet 10/05/24 09:00 10/08/24 09:16 Opti-Gen Tab PO 1 tablet BID [facility] Administration Nitroglycerin 0.4 mg 10/04/24 17:12 Nitroglycerin Sl 0.4 Mg Tablet SUBLINGUAL Q5MIN PRN Chest Pain Pantoprazole Sodium 40 mg 10/05/24 09:00 10/08/24 09:08 Pantoprazole 40 Mg Tablet PO 40 mg QAM [facility] Administration Polyethylene Glycol 17 gm 10/06/24 12:05 10/08/24 11:13 Polyethylene Glycol 3350 17 Gm Powd.Pack PO 17 gm QAM [facility] Administration Tamsulosin HCl 0.4 mg 10/05/24 21:00 10/07/24 20:22 Tamsulosin Hcl 0.4 Mg Capsule PO 0.4 mg QHS [facility] Administration Vitamin D 1,000 units 10/05/24 09:00 10/08/24 09:08 Cholecalciferol 1,000 Units Tablet PO 1,000 units DAILY [facility] Administration Vitamin E 200 unit 10/05/24 09:00 10/08/24 09:16 Vitamin E 100 Unit Capsule PO 200 [facility] Administration Radiology Results: ITS Impressions Chest X-Ray 10/04/24 12:23 Impression: Mild bibasilar haziness, as detailed above. Correlate for mild pulmonary edema, infection, or possibly chronic changes. Lexiscan Stress Test 10/06/24 12:13 IMPRESSION: 1. 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 No reversible ischemia. 2. Left ventricular ejection fraction measuring 55%. Labs Labs: Laboratory Results - last 24 hr 10/08/24 10/08/24 03:55 09:04 WBC 5.8 RBC 3.34 L Hgb 7.6 L Hct 26.9 L MCV 80.5 MCH 22.8 L MCHC 28.3 L RDW 15.0 H Plt Count 241 MPV 10.9 H Sodium 134 L Potassium 3.9 Chloride 102 Carbon Dioxide 26 Anion Gap 6 BUN 17 Creatinine 1.05 Estim Creat Clear Calc 46 Estimated GFR > 60 Glucose 77 Calcium 8.7 Iron 73 TIBC 355 Ferritin 63.70 Total Bilirubin 0.3 AST 15 L ALT 11 Alkaline Phosphatase 55 Total Protein 5.0 L Albumin 3.1 L Blood Type O Positive Antibody Screen Negative Enhanced Crossmatch See Detail
[2024-10-08] MEDS: FUROSEMIDE INJ 40 MG/4 ML VIAL 20 MG IV PUSH (11:26)
[2024-10-08 11:51] LABS: Folic Acid 12.4 ng/mL (2.76->20)
[2024-10-08] MEDS: DOCUSATE SODIUM 100 MG CAPSULE PO ×2 (13:21→20:46)
[2024-10-08] MEDS: BISACODYL 10 MG SUPPOSITORY RECTAL (20:46)
[2024-10-08] MEDS: TAMSULOSIN HCL 0.4 MG CAPSULE PO (20:46)
[2024-10-09] VITALS (11 sets, daily range): BP systolic 109–124; BP diastolic 54–66; PULSE 66–94; RESP 16–18; TEMP 36.3–37; O2SAT 95–100
[2024-10-09 04:36] LABS: Hematocrit 30.6 % (42.0-52.0); Hemoglobin 9.1 g/dL (14.0-18.0); Mean Corpuscular HGB Conc 29.7 g/dl (32-36); Mean Corpuscular Hemoglobin 23.6 pg (26-34); Mean Corpuscular Volume 79.5 fl (80-100); Mean Platelet Volume 10.7 fl (7.4-10.4); Platelet Count Result 224 k/mm3 (150-375); Red Blood Count 3.85 M/mm3 (4.6-6.20); Red Cell Distribution Width 15.6 % (11.5-14.5); White Blood Count 7.6 K/mm3 (4.5-10.0)
[2024-10-09 04:48] LABS: Alanine Aminotransferase 11 U/L (6-50); Albumin Level 3.2 g/dL (3.5-5.1); Alkaline Phosphatase 60 U/L (38-126); Anion Gap 5 mmol/L (4-12); Aspartate Amino Transferase 15 U/L (17-59); Bilirubin,Total 0.4 mg/dL (0.2-1.3); Blood Urea Nitrogen 15 mg/dL (9-20); Calcium 8.8 mg/dL (8.4-10.2); Carbon Dioxide 28 mmol/L (22-30); Chloride 103 mmol/L (98-107); Estimated CRCL calculation 40 ml/min; Estimated Glomerular Filt Rate 58; Glucose 80 mg/dL (65-110); Magnesium 2.1 mg/dL (1.6-2.3); Sodium 136 mmol/L (137-145)
[2024-10-09] MEDS: ATORVASTATIN 20 MG TABLET PO (08:30)
[2024-10-09] MEDS: ISOSORBIDE MONONITRATE 30 MG TAB.ER.24H PO (08:30)
[2024-10-09] MEDS: FERROUS SULFATE 325 MG TABLET DR BY MOUTH ×2 (08:30→12:47)
[2024-10-09] MEDS: PANTOPRAZOLE 40 MG TABLET PO (08:30)
[2024-10-09] MEDS: VITAMIN E 100 UNIT CAPSULE 200 UNIT PO (08:30)
[2024-10-09] MEDS: CHOLECALCIFEROL 1,000 UNITS TABLET 1000 UNITS PO (08:30)
[2024-10-09] MEDS: OPTI-GEN TAB 1 TABLET PO (08:31)
[2024-10-09] MEDS: lisinopriL 10 MG TABLET PO (08:31)
[2024-10-09] MEDS: DOCUSATE SODIUM 100 MG CAPSULE PO (08:31)
[2024-10-09] MEDS: polyethylene glycoL 3350 17 GM POWD.PACK PO (08:31)
[2024-10-09] MEDS: ASPIRIN 81 MG ENTERIC TABLET PO (08:31)
[2024-10-09] MEDS: IRON SUCROSE COMPLEX 100 MG in SODIUM CHLORIDE 0.9% IV 50 ML 220 MG IVPB (09:11)
--- NOTE | 2024-10-09 13:32 | PC.NURSE ---
On 10/09/24, the student, [Haily Mendez], provided care and completed [facility] documentation on this patient. I have reviewed the student's documentation and agree with the findings.
--- NOTE | 2024-10-09 15:37 | P.DS_ITS ---
DS: Admitting Diagnosis Discharge Date 10/09/24 Admitting Diagnosis Chest pain DS: Discharge Diagnosis Discharge Diagnosis (1) Chest pain, exertional: Code(s): R07.9 - Chest pain, unspecified Status: Acute Assessment and Plan: Exertional * EKG, initial: Sinus rhythm, rate 73, marked left axis deviation, anteroseptal NC of indeterminate age. Awaiting formal read. * EKG, repeat (1): No significant change compared to prior, awaiting formal read. * CXR: Mild bibasilar haziness, as detailed above. Correlate for mild pulmonary edema, infection, or possibly chronic changes. * Troponin x 3 negative * ASA 324 given -> 81 daily * SL nitro PRN * update echo, suspicion for CHF exacerbation versus ACS * telemetry monitoring 10/05/24: * ACS vs stable angina vs CHF potential * Stress test? Will wait for cardiology's recommendation * Imdur? 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 No reversible ischemia. * Patient and family discussing intervention vs medical management * Move to IMU * Echo still pending 10/07: * continue ASA cardiology would like to add Plavix but family would like a anemic evaluation first * Cardiology starting Imdur For antianginal (2) Diastolic dysfunction: Code(s): I51.89 - Other ill-defined heart diseases Status: Acute Assessment and Plan: * BNP 2630 * most recent echo (2020): Normal systolic function, estimated EF 65-70%, grade 1 diastolic dysfunction. See report for full details. * Echo pending * not currently on a diuretic, start Lasix 20 mg IV b.i.d. * monitor I&Os and daily weights * trend renal function * Cardiology consulted for further recommendations (3) Anemia: Qualifiers: Anemia type: unspecified type Qualified Code(s): D64.9 - Anemia, unspecified Code(s): D64.9 - Anemia, unspecified Status: Chronic Assessment and Plan: Patient is on a iron supplement daily, stool dark due to this. Denies any BRB per rectum. * Hgb 9.4, previously 14 on 11/15/2023 * Chronic FAREED has had previous blood transfusion * Could be contributing to patient's shortness of breath * will repeat iron studies * Hx of FAREED, continue home iron supplementation. * transfuse PRBC if Hgb <7 * No overt signs of GIB 10/06: * Follows Dr. us * Will give Iron infusions * F/U scheduled in november 22: * Cardiology consulted Dr. Us for anemia evaluation patient would prefer to hold on starting plavix until seen * No GI Workup needed per consult * Continue with Iron infusions * Hgb 8.4 10/08 hemoglobin down to 7.6 with suspected underlying coronary artery disease will transfuse 1 unit of PRBC. (4) Hypertension: Qualifiers: Hypertension type: primary hypertension Qualified Code(s): I10 - Essential (primary) hypertension Code(s): I10 - Essential (primary) hypertension Status: Chronic Assessment and Plan: * chronic, currently 134/67 * continue home medications: Lisinopril * Reviewed monitor per unit protocol Plan Code status: DNR DVT prophylaxis: SCD Stress ulcer prophylaxis: Protonix 40 daily PT/OT notes: Disposition: Patient admitted to the medical unit on telemetry for evaluation of chest pain and exertional SOB moved to IMU Stress test positive intervention vs medical management Continue with medical management per patient and family. consult to hematology for evaluation of anemia. Appreciate their recommendations. DS: Summary Hospital Course Hospital Course: Patient with coronary artery disease and anemia, cardiology is recommending cardiac cath to further evaluate and treat however patient wants to think about it, he will follow up with his legal officer and his anemia, he is clinically stable, will discharge patient home today. Time Spent with Patient Time attestation: Total time spent providing and/or coordinating discharge services: Exam Narrative: GENERAL: The patient is well developed, not in acute distress HEENT: Nonicteric sclerae, PERRLA, EOMI. Oropharynx clear. Moist mucous membranes. Conjunctivae appear well perfused. CHEST: Chest wall is nontender. HEART: Regular rate and rhythm without murmur, rubs, or gallops LUNGS: Clear to auscultation bilaterally. no respiratory distress ABDOMEN: Soft, positive bowel sounds, non-tender, no organomegaly. SKIN: No rash, no excessive bruising, petechiae, or purpura. NEUROLOGIC: Cranial nerves II-XII intact, alert and oriented x 3, no gross motor deficits EXTREMITIES: no edema, cyanosis or clubbing DS: Data Data Completed and Pending Labs on day of discharge: Labs from last 24 hours 10/09/24 04:02 WBC 7.6 RBC 3.85 L Hgb 9.1 L Hct 30.6 L MCV 79.5 L MCH 23.6 L MCHC 29.7 L RDW 15.6 H Plt Count 224 MPV 10.7 H Sodium 136 L Potassium 4.0 Chloride 103 Carbon Dioxide 28 Anion Gap 5 BUN 15 Creatinine 1.19 Estim Creat Clear Calc 40 Estimated GFR 58 L Glucose 80 Calcium 8.8 Magnesium 2.1 Total Bilirubin 0.4 AST 15 L ALT 11 Alkaline Phosphatase 60 Total Protein 6.0 L Albumin 3.2 L Discharge Plan Discharge Attending physician on discharge: Carlos A Villafuerte Consulting providers: Tiffanie Pang; Marcos Donohue; Raul Perez; Pavan Us; Mary Ann Burnett; Kyra Barrera; Tracy Betancur; Abad Enriquez; Amberly Fairchild; Naveed Ceron; Ben Guzmán; Gildardo Gamboa; Sebastian Sebastian Discharging Clinician: Giulia Horne Patient Disposition: Home, Self-Care Activity: as tolerated Diet: heart healthy Discharge Instructions: patient to follow discharge care instruction from his workplace rehabilitation officer and follow up as scheduled, patient to follow up with his primary care provider and legal officer, as soon as possible, patient is instructed if any symptoms worsen to go to nearest ER. Patient Instructions: Antibiotic Form, Angina (GEN), Chest Pain (GEN), Anemia (GEN) Patient Language: [place] Stand Alone Forms: General Discharge Information Follow-up/Referrals: Pavan Us MD [Physician] - Sixto Birmingham APRN [Primary Care Provider] - Marcos Donohue MD [Physician] - Raul Perez MD [Physician] - Discharge Medications: New polyethylene glycol 3350 [Miralax] 17 gram Powder In Packet 17 g PO QAM Qty: 30 0RF isosorbide mononitrate 30 mg Tablet Extended Release 24 Hr 30 mg PO QAM Qty: 30 0RF pantoprazole 40 mg Tablet,Delayed Release (Dr/Ec) 40 mg PO QAM Qty: 30 0RF nitroglycerin [Nitrostat] 0.4 mg Tablet, Sublingual 0.4 mg sublingual Q5MIN PRN (Reason: Chest Pain) Qty: 26 0RF docusate sodium 100 mg Capsule 100 mg PO Q12HR Qty: 30 0RF ferrous sulfate 325 mg (65 mg iron) Tablet,Delayed Release (Dr/Ec) 325 mg BYMOUTH TID Qty: 90 0RF Continued vitamin E 200 unit capsule 200 unit PO DAILY cholecalciferol (vitamin D3) 25 mcg (1,000 unit) capsule 25 mcg PO DAILY prevagen 1 tablet PO DAILY aspirin 81 mg Tablet 81 mg PO DAILY PreserVision AREDS-2 250-90-40-1 mg capsule 1 tablet PO BID lisinopril 10 mg tablet See Rx Instructions .ROUTE .COMPLEX Qty: 90 1RF Dose Instruction: TAKE 1 TABLET BY MOUTH EVERY DAY Rx Instructions: TAKE 1 TABLET BY MOUTH EVERY DAY atorvastatin 20 mg tablet See Rx Instructions .ROUTE .COMPLEX Qty: 90 1RF Dose Instruction: TAKE 1 TABLET BY MOUTH EVERY DAY Rx Instructions: TAKE 1 TABLET BY MOUTH EVERY DAY tamsulosin 0.4 mg capsule See Rx Instructions .ROUTE .COMPLEX Qty: 90 1RF Dose Instruction: TAKE 1 CAPSULE BY MOUTH EVERYDAY AT BEDTIME Rx Instructions: TAKE 1 CAPSULE BY MOUTH EVERYDAY AT BEDTIME Changed ferrous sulfate 325 mg (65 mg iron) tablet 325 mg PO DAILY Qty: 30 0RF Date of admission: 10/05/24 13:51 Primary Care Provider: Sixto Birmingham Admitting Provider: Carlos A Villafuerte Attending physician on admission: Giulia Horne Condition: Stable
== END 2024-10-09 16:34 | disposition home or self-care (01) | DRG 293 ==
LOC: ANHED 13:15 → ANH2MED 16:44 → ANHIMU 10-07 10:34 → ANH2MED 10-10 13:46 → ANHIMU 10-10 13:46
PROVIDERS: Emergency Medicine; Internal Medicine; Nurse Practitioner Family; Admitting Provider General Practice; Emergency Provider Student in an Organized Health Care Education/Training Program; PCP Nurse Practitioner; Visit Provider Family Medicine
DX: I11.0 Hypertensive heart disease with heart failure (principal); I25.119 Atherosclerotic heart disease of native coronary artery with unspecified angina pectoris; I50.32 Chronic diastolic (congestive) heart failure; D50.9 Iron deficiency anemia, unspecified; E78.5 Hyperlipidemia, unspecified; J92.9 Pleural plaque without asbestos; J44.9 Chronic obstructive pulmonary disease, unspecified; Z66 Do not resuscitate; Z95.5 Presence of coronary angioplasty implant and graft; Z79.82 Long term (current) use of aspirin; Z90.89 Acquired absence of other organs; Z87.891 Personal history of nicotine dependence; Z77.090 Contact with and (suspected) exposure to asbestos; I25.2 Old myocardial infarction
CPT/HCPCS: 36415; 36430; 71046; 78452; 80053; 80061; 82607; 82728; 82746; 82948; 83540; 83550; 83690; 83735; 83880; 84484; 85025; 85027; 85610; 85730; 86850; 86900; 86901; 86922; 93005; 93017; 93306; 96374; 99285; A9270; A9502; G0378; J1756; J1940; J2785; J7030; J7050; P9016

== ENCOUNTER 2024-11-12 12:22 | Outpatient (CLI) | payer MEDICARE, SELFPAY ==
--- NOTE | ~2024-11-12 | CT_ITS ---
Clinical Indication: Dyspnea CT Scan of the Chest with Contrast: Technique: Contiguous sections were acquired throughout the chest after intravenous administration of 75 cc of Omnipaque 350. Dose reduction technique was used on this scan by utilizing automated exposu re control and iterative reconstruction technique. The dose-length product (DLP) was 177.78 mGy-cm. COMPARISON: 11/20/2020 Findings: There is no evidence of any significant mediastinal, hilar or axillary lymphadenopathy. There is no f illing defect in the pulmonary arterial tree to suggest pulmonary embolus. There is no evidence of ao rtic dissection or aneurysm. There is no evidence of pleural or pericardial effusion. There is a focal irregular cavitary cystic lesion in the right upper lobe (axial image 57), measuring approximately 1.6 cm in overall diameter.. Severe emphysema present. Images through the upper abdomen reveal no abnormalities. Chronic T7 compression deformity present. Impression: 1.6 cm irregular cystic/cavitary lesion in the right upper lobe, mildly increased in size from prior exam.. Given the relatively mild progression in the time frame since prior exam, this is most likely a benign lesion. Advanced emphysema. Reviewed, dictated and finalized at location . Impression: 1.6 cm irregular cystic/cavitary lesion in the right upper lobe, mildly increas ed in size from prior exam.. Given the relatively mild progression in the time frame since prior exam, this is most likely a benign lesion. Advanced emphysema.
[2024-11-12 13:06] LABS: Estimated Glomerular Filt Rate 58
--- OUTSIDE RECORDS SUMMARY | 2024-11-12 14:01 | XMS_ITS | Clinical Summary ---
Author Organization [facility] Alison Maurice Address [address] [place] [address] Care Team Providers Care Territory Sales Executive Name Role Phone Iam Sabillon DO Primary Care Provider [phone] Allergies No known active allergies Medications atorvastatin (LIPITOR) 20 mg tablet Take 20 mg by mouth daily. 2 Active ferrous sulfate 325 mg (65 mg iron) tablet Take 325 mg by mouth 2 times daily. 2 Active lisinopriL (PRINIVIL) 10 mg tablet Take 10 mg by mouth daily. 2 Active pantoprazole (PROTONIX) 40 mg Tablet, Delayed Release (E.C.) Take 40 mg by mouth daily. 2 Active Vit C-Vit C-Cytsam-FwJf-Kenyatta tein (PRESERVISION) 226-90-0.8-5 mg Capsule Take 1 Capsule by mouth daily. Active tamsulosin (FLOMAX) 0.4 mg capsule Take 0.4 mg by mouth daily. Active isosorbide mononitrate (IMDUR) 30 mg Extended Release 24 hour tablet Take 30 mg by mouth daily in the morning. 5 Active nitroglycerin (NITROSTAT) 0.4 mg Tablet, Sublingual Place 0.4 mg under tongue every 5 minutes as needed for Chest Pain. 5 Active docusate sodium (COLACE) 100 mg capsule Take 1 Capsule by mouth 2 times daily. 5 Active cephALEXin (KEFLEX) 500 mg capsule Take 1 Capsule by mouth 3 times daily. 5 Active polyethylene glycol 3350 (Miralax) 17 gram/dose Powder Take 17 Grams by mouth 1 time daily as needed for Constipation. Dissolve in 8 ounces of fluid and drink entire liquid Active Active Problems No known active problems Encounters Date Type Department Care Team Description 11/04/2024 1:00 PM CDT Office Visit [facility] Oncology and Hematology [facility] [address] [place] [address] Pavan Us MD Chronic anemia (Primary Dx); Other form of dyspnea; Microcytic anemia 10/31/2024 Orders Only [facility] Oncology and Hematology [place] [address] [place] [address] Pavan Us MD 10/10/2024 Orders Only [facility] Oncology and Hematology [place] [address] [place] [address] Pavan Us MD Chronic anemia (Primary Dx) 10/08/2024 External Device Data STL ABSTRACTION Provider, Abstract 09/27/2024 External Device Data STL ABSTRACTION Provider, [...] Sign Reading Time Taken Comments Blood Pressure 137/65 11/04/2024 1:11 PM CDT Pulse 62 11/04/2024 1:11 PM CDT Temperature 36.2 C (97.1 F) 11/04/2024 1:11 PM CDT Respiratory Rate 15 11/04/2024 1:11 PM CDT Oxygen Saturation 94% 11/04/2024 1:11 PM CDT Inhaled Oxygen Concentration - - Weight 73.1 kg (161 lb 3.2 oz) 11/04/2024 1:11 P M CDT Height 177.8 cm (5' 10 ) 06/30/2022 11:53 AM REPEAT CHIEF Body Mass Index 23.13 06/30/2022 11:53 AM REPEAT CHIEF Plan of Treatment Upcoming Encounters Date Type Department Care Team (Late st Contact Info) Description 11/19/2024 4:30 PM CDT Telephone Check Up [facility] Oncology and Hematology [place] [address] [place] [address] Pavan Us MD [address] [place] [address] 01/05/2025 1:00 PM CDT Office Visit [facility] Oncology and Hematology [facility] [address] [place] [address] Pavan Us MD [address] [place] [address] Health Maintenance Due Date Last Done Comments DTAP/TDAP/TD VACCINES (1 - Tdap) 09/27/1959 PNEUMOCOCCAL VACCINE 50+ YEARS (1 of 1 - PCV) 09/27/18 90 ZOSTER VACCINE (1 of 2) 09/27/1989 RSV VACCINE (60+ or ) (1 - 1-dose 75+ series) 09/27/2014 INFLUENZA VACCINE (#1) 2024 [place]) Prev entative Visit/Annual Wellness Visit 07/23/2024 Procedures Procedure Name Priority Date/Time Associated Diagnosis Comments CBC WITH AUTODIFFERENTIAL Routine 2024 2:11 PM CDT from Last 3 Months Results * CBC WITH AUTODIFFERENTIAL (10/29/2024 2:11 PM CDT) Blood Pavan Us MD HEMATOLOGY ORDERABLES Final Res ult from Last [address] [place] [address] [place] [address] Care Teams Territory Sales Executive Relationship Specialty Start Date End Date Iam Sabillon DO [address] [facility] [place] [address] PCP - General Internal Medicine 11/04/24
--- OUTSIDE RECORDS SUMMARY | 2024-11-12 14:01 | XMS_ITS | Encounter Summary ---
Author Organization [facility] Address [address] [place] [address] Care Team Providers Care Osteopathic Resident Name Role Phone Iam Sabillon Primary Care Provider [phone] Reason for Referral * CT Scan (Routine) - Closed Specialty Diagnoses / Procedures Referred By Alxea krishnan Referred To Contact Diagnoses Other form of dyspnea Procedures CT CHEST W CONTRAST Pavan Us MD [address] [place] [address] Phone: tel: fax: [place] [phone] Referral ID Status Reason Start Date Expiration Date V isits Requested Visits Authorized [id number] Closed [facility] CTS 11/04/2024 12/05/2025 1 1 Reason for Visit * Reason Comments Follow Up Encounter Details Date Type Department Care Team (Late st Contact Info) Description 11/04/2024 1:00 PM CDT Office Visit [facility] Oncology and Hematology [facility] [address] [facility] [address] [place] [address] Pavan Us MD [address] [place] [address] Chronic anemia (Primary Dx); Other form of dyspnea; Microcytic anemia Social History Tobacco Use Types Packs/Day Years Used Date Smoking Tobacco: Former Cigarettes 1 40 0 07/23/1954 - 07/23/1994 Smokeless Tobacco: Never Tobacco Cessation:Counseling Given: Not Answered Sex and Gender Information Value Date Recorded Sex Assigned at Not on file Legal Sex Male 11:03 AM CDT Gender Identity Not on file Sexual Orientation Not on file documented as of this encounter Last Filed Vital Signs Vital Sign Reading [...] oz) 11/04/2024 1:11 P M CDT Height - - Body Mass Index 23.13 06/30/2022 11:53 AM ELECTRONICS INSTRUCTOR documented in this encounter Progress Notes * Pavan Us MD - 11/04/2024 1:17 PM CDT HEMATOLOGY / ONCOLOGY PROGRESS NOTE Patient Identification: Name: Pranay Casanova Age: 84 y.o. Sex: male : 1940 DIAGNOSIS Microcytic anemia Kidney mass CURRENT TREATMENT Oral iron once a day TREATMENT HISTORY SUBJECTIVE Patient came to the office for follow-up visit. He is complaining of tiredness and fatigue and shortness of breath. He has lost 6 pound weight. Denies any bleeding including melena hematochezia. No other new complaint. Review of system Constitutional: Patient did not mention fevers, sweats, 6 pound weight loss with complain of tiredness and fatigue HEENT: Patient did not mention sinus congestion, hearing or vision problems Respiratory: Patient did not mention cough, complain of shortness of breath Cardiovascular: Patient did not mention chest pain, exertional chest pressure/discomfort, nausea, syncope, complain of shortness of breath GI: Patient did not mention constipation, diarrhea, dsyphagia, reflux symptoms, vomiting, melena : Patient did not mention dysuria, frequency, incontinence, urgency Integumentary system: no lymphadenopathy, sweats, flushing Musculoskeletal: Patient not mention: myalgia, complain of chronic lower back pain Neurological: Patient did not mention blurry or disturbed vision, numbness/weakness, dizziness Skin: No lumps, bumps or rashes. 12 review of system was reviewed Objective: Vital signs in last 24 hours: As per nursing note Exam: General appearance: alert, cooperative, no distress, appears stated age Head: normocephalic, without obvious abnormality, atraumatic Eyes: conjunctivae/corneas clear, EOM's intact Ears: normal external ear canals AU Nose: Nares normal. Septum midline. Mucosa normal. No drainage or sinus tenderness Throat: Lips, mucosa, and tongue normal. Teeth and gums normal Neck: supple, symmetrical, trachea midline. Lungs: clear to auscultation bilaterally Heart: regular rate and rhythm, S1, S2 normal, no murmur, click, rub or gallop Abdomen: soft, non-tender. Bowel sounds normal. No masses, No organomegaly Extremities: extremities normal, atraumatic, no cyanosis or edema Skin: Skin color, texture, turgor normal. No rashes or lesions Lymph nodes: No lymphadenopathy Neuro: No obvious focal deficit Exam as above PATH LABS Labs from June 30 showed soluble transferrin receptor elevated at 1.8 creatinine 1.0 AST 28 vitamin B12 472 iron 204 saturation 57% ferritin 23.5 hemoglobin 13.4 WBC 7.9 platelet 198,000 MCV 81.1 Labs from October 17 showed WBC 7.6 hemoglobin 14 platelet 250,000 iron 59 saturation 21% ferritin 52 Labs from May 10 showed creatinine 1.1 WBC 7.5 hemoglobin 14.2 platelet 270,000 iron 76 saturation 24% ferritin 60 Labs from November 14 showed hemoglobin 13.9 iron 47 saturation 15 ferritin 40 Labs from October 29 showed WBC 5.8 hemoglobin 11.3 platelet 214,000 creatinine 1.0 iron 29 saturation9 B12 453 ferritin 54 Assessment: Plan: There are no active problems to display for this patient. Microcytic anemia. Colonoscopy in February showed diverticulosis and EGD showed gastritis, duodenitisand Schatzki ring. Capsule enteroscopy was normal. Patient more symptomatic with tiredness and fatigue. Labs showed significant drop in hemoglobin andiron studies. We will increase oral iron to twice a day and will proceed with iron infusion now. Follow-up in 2 months. Shortness of breath. 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 There is also history of kidney mass. We will order CT scan chest now and phone visit in 1 week. History of kidney mass. Previous CT scan showed finding consistent with benign lesion. 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 Follow-up with me in 2 months and phone visit in [address] scan. 11/04/2024 Pavan Us MD documented in this encounter Plan of Treatment Upcoming Encounters Date Type Department Care Team (Late st Contact Info) Description 11/19/2024 4:30 PM CDT Telephone Check Up [facility] Oncology and Hematology [facility] [address] [place] [address] Pavan Us MD [address] [facility] [address] [place] [address] 01/05/2025 1:00 PM CDT Office Visit [facility] Oncology and Hematology [facility] [address] [place] [address] Pavan Us MD [address] [place] [address] Scheduled Orders Name Type Priority Associated Diagnoses Orde r Schedule CBC WITHOUT DIFFERENTIAL Lab Stat Chronic anemia Expected: 12/30/2024, Expires: 11/04/2025 FERRITIN Lab Routine Chronic anemia Expected: 12/30/2024, Expires: 11/04/2025 IRON, TIBC, AND PERCENT SATURATION Lab Routine Chronic anemia Expected: 12/30/2024, Expires: 11/04/2025 CT CHEST W CONTRAST Imaging Routine Other form of dyspnea Expected: 11/05/2024, Expires: 11/04/2025 documented as of this encounter Visit Diagnoses Diagnosis Chronic anemia- Primary Anemia, unspecified Other form of dyspnea Microcytic anemia Iron deficiency anemia, unspecified documented in this encounter Care Teams Osteopathic Resident Relationship Specialty Start Date End Date Iam Sabillon DO [address] [place] [id number] PCP - General Internal Medicine 11/04/24 documented as of this encounter
--- OUTSIDE RECORDS SUMMARY | 2024-11-12 14:01 | XMS_ITS | Continuity of Care Document ---
Author Organization [facility] Address [id number] [place] [address] [address] [place] [address] Phone Care Team Providers Care Fish Machine Feeder Name Role Phone Cassidy, Edclaudio Unavailable Unavailable Advance Directives Directive Yes / No Effective Date File Name No Information Encounters Encounter Description Practice Location Reason(s) For Visit Diagnoses Date Provider Providers Copied on Encounter [facility], [address], [place], [place], [id number], [place] tel:[phone] [facility] No Information Aug-0 7-200 0 Doisy Edward. [address] [facility] , [address], [place], [address], [place]. tel:[phone] Family History Family Member Type Diagnosis Age [...]
== END 2024-11-12 12:23 | disposition home or self-care (01) ==
PROVIDERS: PCP Internal Medicine; Visit Provider Internal Medicine Hematology & Oncology
DX: R06.09 Other forms of dyspnea (principal); J43.9 Emphysema, unspecified; R91.8 Other nonspecific abnormal finding of lung field
CPT/HCPCS: 71260; Q9967